=== PATIENT | male | born 1970 | race Caucasian/White ===

== ENCOUNTER 2020-11-16 10:13 | Emergency (ER) | payer MEDICAID, SELFPAY ==
[2020-11-16] VITALS (11 sets, daily range): BP systolic 143–182; BP diastolic 91–111; PULSE 78–96; RESP 12–22; TEMP 36.5; O2SAT 95–100
--- NOTE | ~2020-11-16 | XR_ITS ---
EXAMINATION: XR chest 2V DATE: 11/16/2020 10:45 INDICATION: Chest pain and cough TECHNIQUE: AP and lateral views of the chest are obtained. COMPARISON: 02/09/2019 FINDINGS: The lungs are free of acute opacities. There is no pleural effusion or pneumothorax. The ca rdiomediastinal silhouette is normal. There is moderate thoracic spondylosis. IMPRESSION: 1. No acute cardiopulmonary abnormality. Reviewed, dictated and finalized at location A. ITECTURAL WOOD MODEL MAKER
--- NOTE | 2020-11-16 10:24 | ECG_ITS ---
Measurements Intervals [place] Rate: 90 P: 46 IL: 183 QRS: -53 QRSD: 101 T: 11 QT: 349 QTc: 429 Interpretive Statements SINUS RHYTHM DELAYED PRECORDIAL R/S TRANSITION INFERIOR INFARCT, AGE INDETERMINATE BASELINE WANDER- I, II, AVR ABNORMAL ECG Electronically Signed On 11-16-2020 15:51:16 MOBILE LOUNGE DRIVER OR OPERATOR by Ryan Hill D.O.
[2020-11-16] MEDS: ASPIRIN 81 MG CHEWABLE TABLET 324 MG PO (10:34)
[2020-11-16 10:40] LABS: Basophils Absolute Auto 0.1 K/mm3 (0.0-0.1); Basophils Percent Auto 0.8 % (0.2-1.2); Eosinophils Absolute Auto 0.3 K/mm3 (0-0.3); Eosinophils Percent Auto 3.8 % (0-4.4); Hematocrit 50.4 % (42.0-52.0); Hemoglobin 17.3 g/dL (14.0-18.0); Immature Granulocyte Absolute 0.05 K/mm3 (0.00-0.031); Immature Granulocyte Percent A 0.6 % (0-0.5); Lymphocytes Absolute Auto 1.64 K/mm3 (0.9-3.2); Lymphocytes Percent Auto 19.4 % (18.3-44.2); Mean Corpuscular HGB Conc 34.3 g/dl (32-36); Mean Corpuscular Hemoglobin 28.9 pg (26-34); Mean Corpuscular Volume 84.3 fl (80-100); Mean Platelet Volume 8.7 fl (7.4-10.4); Monocytes Absolute Auto 0.5 K/mm3 (0.1-0.6); Neutrophils Absolute Auto 5.9 K/mm3 (1.3-6.7); Neutrophils Percent Auto 69.4 % (45.5-73.1); Platelet Count Result 275 k/mm3 (150-375); Red Blood Count 5.98 M/mm3 (4.6-6.20); Red Cell Distribution Width 12.3 % (11.5-14.5); White Blood Count 8.5 K/mm3 (4.5-10.0)
[2020-11-16] MEDS: hydrALAZINE HCL 20 MG/ML VIAL 10 MG IV PUSH ×2 (10:47→14:07)
[2020-11-16 10:49] LABS: Prothrombin Time 13.3 Seconds (11.1-14.7)
[2020-11-16 10:50] LABS: Partial Thromboplastin Time 31.9 SECONDS (22.3-36.8)
[2020-11-16 10:58] LABS: Anion Gap 5 mmol/L (8-16); Blood Urea Nitrogen 10 mg/dL (9-20); Calcium 9.4 mg/dL (8.4-10.2); Carbon Dioxide 30 mmol/L (22-30); Chloride 102 mmol/L (98-107); Estimated CRCL calculation 88 ml/min; Estimated Glomerular Filt Rate > 60; Glucose 109 mg/dL (75-110); Potassium 4.4 mmol/L (3.4-5.0); Sodium 137 mmol/L (137-145)
[2020-11-16 11:10] LABS: Troponin I < 0.012 ng/mL (0.000-0.034)
[2020-11-16 11:46] LABS: NT Pro B Type Natriuretic Pept 152 PG/ML (5-100)
--- NOTE | 2020-11-16 13:53 | ED.CHESTPAIN ---
HPI - Chest Pain General Chief Complaint: Chest Pain Stated Complaint: CP,SOB OUT OF CARDIAC MEDS Time Seen by Provider: 11/16/20 10:14 Source: patient and old records reviewed Mode of arrival: ambulatory Limitations: no limitations History of Present Illness HPI narrative: Patient is a 50-year-old male who presents with 3 weeks duration of not feeling well with fatigue on exertion and at rest patient also noting some mild chest discomfort in the mid chest is an aching pain that has been present for over a week and has remained persistent patient notes that he has not been compliant with his medications and has history of dilated cardiomyopathy followed by Dr. Oakes at [facility] also has not seen his primary care patient notes he was last seen roughly 18 months ago and has been off his medications for some time now. Patient notes he has not been taking his Entresto due to cost. Patient notes he has had a cough but denies other URI symptoms or sick contacts. On arrival patient in the room in no distress does not appear uncomfortable Related Data Allergies Allergy/AdvReac Type Severity Reaction Status Date / Time No Known Allergies Allergy Unknown Verified 11/16/20 10:28 Review of Systems Review of Systems: All systems reviewed & are unremarkable except as noted in HPI and below PMFSH Past Medical History Medical History (Updated 11/16/20 @ 14:49 by Syed Dumont PA-C) Dilated cardiomyopathy Hypertension Surgical History Surgical History (Updated 11/16/20 @ 14:48 by Syed Dumont PA-C) Hx of cardiac catheterization Family History Family History Mother Family history of heart disease in male family member before age 55 Patient's mother is Social History Social History Smoking status: Current every day smoker Alcohol intake: never Exam Narrative: Exam Narrative: GENERAL: Well-appearing, well-nourished, and in no acute distress. HEAD: Normocephalic, atraumatic. EYES: PERRLA and EOMI. ENT: Nares clear, no rhinorrhea or epistaxis. Mucous membranes moist. NECK: Supple. No adenopathy or masses. No carotid bruits or JVD CHEST: Clear to auscultation. No respiratory distress. No wheezes rales or rhonchi HEART: Regular rate and rhythm. No murmur heard. Normal peripheral pulses. ABDOMEN: Soft, nontender, nondistended EXTREMITIES: Normal range of motion. No edema. SKIN: Warm, dry, no rash. NEURO: No focal deficits. Alert and oriented x3. PSYCH: Normal mood and affect. Course Course Emergency Course: Patient evaluated in the emergency department was given medication for his blood pressure responded well noting that he is feeling better at this time patient is aware of discussion with cardiology and the recommendations patient agrees to go home and notes that he will contact his bindery worker and primary care first thing Wednesday also notes that he will feel his medications and start taking them as directed patient also agrees to return if symptoms worsen Consultations Consultation #1: Discussed case findings presentation with Dr. Yobany nice who agrees the patient can go home will be placed on blood pressure medications and advised to follow in clinic Date: 11/16/20 Time: 14:52 Vital Signs Vital signs: Vital Signs Temperature 97.7 F 11/16/20 10:14 Pulse Rate 96 11/16/20 10:14 Respiratory Rate 16 11/16/20 10:14 Blood Pressure 168/107 H 11/16/20 10:14 Pulse Oximetry 100 11/16/20 10:14 Temperature 97.7 F 11/16/20 10:14 Pulse Rate 78 11/16/20 13:38 Respiratory Rate 12 11/16/20 13:38 Blood Pressure 159/110 H 11/16/20 13:38 Pulse Oximetry 97 11/16/20 13:38 MDM - Chest Pain Lab Data Result diagrams: 11/16/20 10:29 11/16/20 10:29 Labs: Lab Results 11/16/20 11/16/20 11/16/20 Range/Units 10:2
[2020-11-16 13:54] LABS: Troponin I < 0.012 ng/mL (0.000-0.034)
[2020-11-17 00:20] LABS: SARS-CoV-2 RNA PCR Negative
== END 2020-11-16 15:04 | disposition home or self-care (01) ==
PROVIDERS: Emergency Medicine Emergency Medical Services; Emergency Provider Family Medicine; Family Provider Internal Medicine Cardiovascular Disease
DX: R07.89 Other chest pain (principal); I10 Essential (primary) hypertension; Z20.822 Contact with and (suspected) exposure to COVID-19; I42.0 Dilated cardiomyopathy; F17.200 Nicotine dependence, unspecified, uncomplicated; R94.31 Abnormal electrocardiogram [ECG] [EKG]
CPT/HCPCS: 36415; 71046; 80048; 83880; 84484; 85025; 85610; 85730; 93005; 96374; 96376; 99284; A9270; C9803; J0360; U0003; U0005

== ENCOUNTER 2022-10-02 06:51 | Inpatient (IN) | payer OTHER, SELFPAY ==
[2022-10-02] VITALS (61 sets, daily range): BP systolic 94–142; BP diastolic 72–98; PULSE 84–135; RESP 20–42; TEMP 36.8; O2SAT 86–100
--- NOTE | ~2022-10-02 | XR_ITS ---
EXAMINATION: XR chest 2V DATE: 10/02/2022 08:07 INDICATION: Shortness of breath and productive cough TECHNIQUE: PA and lateral views of the chest are obtained. COMPARISON: 11/16/2020 FINDINGS: There are patchy bilateral opacities throughout all lung zones. No pleural effusion or pneu mothorax. The cardiomediastinal silhouette is normal. There is mild thoracic spondylosis. IMPRESSION: 1. Patchy diffuse opacities throughout the lungs, consistent with atelectasis versus pneumonia versus pulmonary edema. Reviewed, dictated and finalized at location A. H SUPERVISOR IMPRESSION: 1. Patchy diffuse opacities throughout the lungs, consistent with atelectasis v ersus pneumonia versus pulmonary edema.
--- NOTE | 2022-10-02 07:12 | ECG_ITS ---
Measurements Intervals [place] Rate: 131 P: 60 TX: 146 QRS: -58 QRSD: 98 T: 105 QT: 281 QTc: 415 Interpretive Statements SINUS TACHYCARDIA MARKED LEFT AXIS DEVIATION [QRS AXIS < -30] PREVIOUS INFERIOR INFARCTION ST DEVIATION AND MODERATE T-WAVE ABNORMALITY, CONSIDER LATERAL ISCHEMIA [-0.1+ mV T WAVE IN I/aVL/V5/V6] COMPARED TO ECG 11/16/2020 10:28:21 SINUS TACHYCARDIA NOW PRESENT LATERAL T-WAVE INVERSION IS NOW SEEN Electronically Signed On 10-02-2022 7:48:48 TOOL AND GAUGE INSPECTOR by Ru Smith M.D.
[2022-10-02 07:40] LABS: Basophils Percent Auto 0.7 % (0.2-1.2); Eosinophils Percent Auto 0.2 % (0-4.4); Hematocrit 41.1 % (42.0-52.0); Hemoglobin 13.6 g/dL (14.0-18.0); Immature Granulocyte Absolute 0.03 K/mm3 (0.00-0.031); Immature Granulocyte Percent A 0.5 % (0-0.5); Lymphocytes Absolute Auto 0.45 K/mm3 (0.9-3.2); Lymphocytes Percent Auto 7.8 % (18.3-44.2); Mean Corpuscular HGB Conc 33.1 g/dl (32-36); Mean Corpuscular Hemoglobin 28.1 pg (26-34); Mean Corpuscular Volume 84.9 fl (80-100); Mean Platelet Volume 9.1 fl (7.4-10.4); Monocytes Absolute Auto 0.4 K/mm3 (0.1-0.6); Monocytes Percent Auto 7.1 % (2.6-8.5); Neutrophils Absolute Auto 4.9 K/mm3 (1.3-6.7); Neutrophils Percent Auto 83.7 % (45.5-73.1); Platelet Count Result 253 k/mm3 (150-375); Red Blood Count 4.84 M/mm3 (4.6-6.20); Red Cell Distribution Width 12.3 % (11.5-14.5); White Blood Count 5.8 K/mm3 (4.5-10.0)
[2022-10-02 07:42] LABS: Alveolar/Arterial O2 Gradient 58.4 mmHg; Base Excess ABG -1.3 mEq/l (+/-2.0); Carboxyhemoglobin 0.9 % THb (0-2.0); Fractional Inspired Oxygen 21 %; HCO3 ABG 20.7 mEq/l (22.0-26.0); Methemoglobin ABG 0.1 %THb (0-1.5); Oxygen Saturation ABG 92.5 % (95.0-100.0); Oxyhemoglobin 90.5 % THb (90.0-100.0); PCO2 ABG 27.9 mmHg (35.0-45.0); PO2 ABG 57.9 mmHg (80.0-100.0); PO2 FiO2 Ratio Arterial Blood 2.76 %; Reduced Hemoglobin 8.5 %THb (0-5.0); Total Hemoglobin 14.2 g/dL (12.0-18.0); pH ABG 7.489 (7.350-7.450)
[2022-10-02 07:43] LABS: Site Drawn LEFT BRACHIAL
[2022-10-02 07:44] LABS: Device ROOM AIR
[2022-10-02 07:50] LABS: Lactic Acid Reflex 1.4 mmol/L (0.7-2.0)
[2022-10-02 07:51] LABS: INR 1.2; Prothrombin Time 14.7 Seconds (11.1-14.7)
[2022-10-02 07:52] LABS: Alanine Aminotransferase 213 U/L (6-50); Alkaline Phosphatase 110 U/L (38-126); Anion Gap 5 mmol/L (8-16); Aspartate Amino Transferase 227 U/L (17-59); Bilirubin,Total 0.7 mg/dL (0.2-1.3); Blood Urea Nitrogen 16 mg/dL (9-20); CRP 4.2 mg/dL (<1.0); Calcium 8.1 mg/dL (8.4-10.2); Carbon Dioxide 27 mmol/L (22-30); Chloride 97 mmol/L (98-107); Estimated CRCL calculation 55 ml/min; Estimated Glomerular Filt Rate 53; Glucose 95 mg/dL (65-110); Partial Thromboplastin Time 30.7 SECONDS (22.3-36.8); Potassium 4.5 mmol/L (3.4-5.0); Sodium 129 mmol/L (137-145)
--- NOTE | 2022-10-02 07:58 | ED.SOB ---
HPI - SOB/Dyspnea General Chief Complaint: Shortness of Breath/Dyspnea Stated Complaint: shortness of breath Time Seen by Provider: 10/02/22 07:05 Source: patient and RN notes reviewed Mode of arrival: ambulatory Limitations: no limitations History of Present Illness HPI Narrative: This is a 52 year old male with history of smoking, hypertension and dilated cardiomyopathy who presents for evaluation of shortness of breath and cough. Patient reports a productive with yellow phlegm for 1 week. He also reports cough and wheezing when laying down at night. He is reports shortness of breath with exertion and 7 pound weight gain in 1 week. He denies lower extremity edema but he states he has gained weight in his abdomen in the past. Patient reports abdominal pain in triage but he denies abdominal pain, nausea, vomiting or diarrhea to me . He denies fever or chills. He reports being diagnosed with dilated cardiomyopathy in 2016, but he has not followed with a provider since then. He does not take any medication. He has not seen certified tower climber, Dr. Oakes since 2016. He reports negative cardiac catheterization in 2016 . Related Data Allergies Allergy/AdvReac Type Severity Reaction Status Date / Time No Known Allergies Allergy Unknown Verified 11/16/20 10:28 Review of Systems Review of Systems: All systems reviewed & are unremarkable except as noted in HPI and below Constitutional: Constitutional: Denies chills, Denies fatigue, Reports fever(s) and Reports weakness Cardiovascular: Cardiovascular: Reports chest pain (chest tightness) and Denies radiating jaw, neck or arm pain Respiratory: Respiratory: Denies chest congestion, Reports cough, Reports dyspnea and Reports wheezing Gastrointestinal: Gastrointestinal: Denies abdominal pain, Reports bloating, Denies nausea and Denies vomiting [facility] Past Medical History Medical History (Updated 10/02/22 @ 18:41 by Sparkle Vasquez MD) Dilated cardiomyopathy Hypertension Surgical History Surgical History Hx of cardiac catheterization Family History Family History Mother Family history of heart disease in male family member before age 55 Patient's mother is Social History Social History (Updated 10/02/22 @ 16:07 by Funmilayo Mosqueda NP) Social History: The patient smokes 1/2 ppd. He is and has 2 sons. 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 Patient denies any all alcohol marijuana or illicit drugs. His sons are his durable power bankruptcy attorney for healthcare. Code status full code Smoking status: Current every day smoker Alcohol intake: never Exam Const: General: alert Nutritional Appearance: well nourished Orientation/consciousness: patient oriented x3 HENMT: Head: normal to inspection Face/Nose/Sinus: Normal external nose present Face and sinus: normal facial exam Eyes: EOM: EOMs intact bilaterally Chest: Chest palpation & inspection: normal inspection of the chest Resp: Effort & Inspection: normal respiratory effort Auscultation: clear to auscultation bilaterally Cardio: Rate: tachycardic Rhythm: regular rhythm Heart sounds: no murmurs GI: GI Palp: Yes Soft to palpation, No Tenderness to palpation present (GI), No Guarding due to palpation present (GI) and No Rigid due to palpation Auscultation: normal bowel sounds Back/Spine/Pelvis: Back: no CVA tenderness Skin: General skin exam: normal color Rashes: no rashes Wounds: no wounds Neuro: General: patient oriented x3, moves all extremities and CN's II-XI intact bilaterally Extrem: General: normal to inspection Psych: Mental Status: mental status grossly normal Affect: normal affect Attitude: cooperative Course Reevaluation(s) Reevaluation #1: I Discussed with patient that he was found to have COVID and CHF. He will be admitted for diuresis and covid treatme
[2022-10-02 08:15] LABS: NT Pro B Type Natriuretic Pept 11000 pg/mL (5-100); Troponin I 0.095 ng/mL (0.000-0.034)
[2022-10-02] MEDS: FUROSEMIDE INJ 40 MG/4 ML VIAL IV PUSH (08:45)
[2022-10-02] MEDS: ASPIRIN 81 MG CHEWABLE TABLET 324 MG PO (08:46)
[2022-10-02 09:01] LABS: Influenza A QL RT-PCR Negative (Negative); Influenza B QL RT-PCR Negative (Negative); SARS-CoV-2 RNA PCR Positive
[2022-10-02 09:01] LABS: Lipase 40 U/L (23-300)
[2022-10-02 09:05] LABS: Appearance Urine Clear (Clear); Bilirubin Urine 1+ (Negative); Blood Urine Negative (Negative); Color Urine Yellow (Yellow); Glucose Urine UA Negative (Negative); Ketones Urine Negative (Negative); Leukocyte Esterase Ur Negative LEU/UL (Negative); Nitrate Urine Negative (Negative); Protein Urine 1+ mg/dL (Negative); Specific Grav Ur 1.025 (1.001-1.035); pH Urine 5.5 (5.0-9.0)
[2022-10-02 09:10] LABS: Mucus Urine Rare /lpf; RBC Urine 0-2 /hpf (0-2); WBC Urine 0-3 /hpf
[2022-10-02 09:11] LABS: Add Urine Microscopic? YES
[2022-10-02 11:16] LABS: Alanine Aminotransferase 209 U/L (6-50)
[2022-10-02 11:30] LABS: Troponin I 0.122 ng/mL (0.000-0.034)
[2022-10-02] MEDS: REMDESIVIR 200 MG/NS 250 ML 200 MG/250 ML BAG 250 MG IVPB (11:35)
--- NOTE | 2022-10-02 13:08 | PC.NURSE ---
standard heart health food tray ordered
[2022-10-02 13:45] LABS: Troponin I 0.116 ng/mL (0.000-0.034)
--- NOTE | 2022-10-02 14:03 | PM.IMHP ---
H&P: HPI History of Present Illness Date/Time: 10/02/22 14:03 Chief Complaint: Shortness of breath Narrative: This is a 52-year-old male patient who has a history of smoking, hypertension and dilated cardiomyopathy. At 1 point the patient had a life vest on. But no longer wears a LifeVest. The patient has had a productive cough of yellow phlegm for last week. The patient stated that he has gained weight of 7 lb the last week. The patient has not taken any medication. Has not seen a insurance follow up representative 2016 he reported a negative cardiac catheterization in 2016. H&H 13.6 and 41.1. ABGs pH 7.489, CO2 27.9, PO2 was 57.9. The patient was provided oxygen at 2 L per nasal cannula emergency room. Sodium is 129. Creatinine 1.4. AST is 227 [place] [address]. C reactive protein 4.2. Troponin 0.095, 0.122 and 0.116. Chest x-ray was read as patchy diffuse opacities to the lungs, consistent with atelectasis versus pneumonia versus pulmonary edema. The patient was given IV fluids, aspirin, Decadron and remdesivir. EKG was read as sinus tachycardia heart rate 130s. Initially the patient was admitted to observation and then changed to inpatient status on the date of service 10/02/2022 Review of Systems Review of Systems: See HPI All systems reviewed & are unremarkable except as noted in HPI and below Constitutional: Constitutional: Reports as per HPI and Reports no additional constitutional complaints Eyes: Eyes: Reports as per HPI and Reports no additional eye complaints ENT: Reports system reviewed and no additional complaints, except as documented and Reports Normal hearing present Cardiovascular: Cardiovascular: Reports no additional cardiovascular complaints Respiratory: Respiratory: Reports no additional respiratory complaints and Reports no additional respiratory complaints Gastrointestinal: Gastrointestinal: Reports as per HPI and Reports no additional gastrointestinal complaints Musculoskeletal: Musculoskeletal: Reports no additional musculoskeletal complaints Integumentary/Breasts: Skin/Breast: Reports system reviewed and no additional complaints, except as docu and Reports as per HPI Neurologic: Reports system reviewed and no additional complaints, except as documented, Reports as per HPI and Reports Normal hearing present Psychiatric: Psychiatric: Reports no additional psychiatric complaints and Reports as per HPI Endocrine: Endocrine: Reports no additional endocrine complaints Hematologic/Lymphatic: Hematologic/Lymphatic: Reports no additional hematologic/lymphatic complaints Allergic/Immunologic: Allergic/Immunologic: Reports no additional allergic/immunologic complaints [facility] Past Medical History Medical History (Updated 10/02/22 @ 16:17 by Funmilayo Mosqueda NP) Dilated cardiomyopathy Hypertension Surgical History Surgical History Hx of cardiac catheterization Family History Family History Mother Family history of heart disease in male family member before age 55 Patient's mother is Social History Social History (Updated 10/02/22 @ 16:07 by Funmilayo Mosqueda NP) Social History: The patient smokes 1/2 ppd. He is and has 2 sons. 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 Patient denies any all alcohol marijuana or illicit drugs. His sons are his durable power motor racer for healthcare. Code status full code Smoking status: Current every day smoker Alcohol intake: never Meds Home Medications and Allergies Home Medications Medication Instructions Recorded Confirmed Type carvedilol 3.125 mg tablet (Coreg) 3.125 mg PO BID 30 days #60 tabs 11/16/20 Rx lisinopril 20 mg tablet 20 mg PO DAILY 30 days #30 tabs 11/16/20 Rx Allergies Allergy/AdvReac Type Severity Reaction Status Date / Time No Known Allergies Allergy Unknown Verified 11/16/20 1
--- NOTE | 2022-10-02 16:23 | PC.NURSE ---
heart healthy diet ordered
[2022-10-03] VITALS (8 sets, daily range): BP systolic 106–111; BP diastolic 66–71; PULSE 74–90; RESP 18–24; TEMP 35.6–37; O2SAT 93–97; BMI 26.2; BMI 26.0
--- NOTE | 2022-10-03 | ECHO_ITS ---
Patient Info Name: Jose Juan Rodriguez Age: 52 years : 1970 Gender: Male Ht: 69 in Wt: 177 lbs BSA: 1.99 m2 HR: 76 bpm BP: 109 / 71 mmHg Heart Rhythm: Sinus Rhythm Technical Quality: Good Exam Date: 10/03/2022 7:53 AM Exam Location: [facility] Patient Status: Inpatient Admit Date: 10/02/2022 Staff Ordering Physician: Funmilayo Mosqueda NP Court Of Appeals Judge: Olivia Card RDCS Attending Provider: Jake Shipman MD Referring Physician: Jaylin MARINO; Exam Type: CA echo doppler color flow Study Info Indications R06.02 - Shortness of breath Complete two-dimensional, color flow and Doppler transthoracic echocardiogram is performed. Summary 1. Complete two-dimensional, color flow and Doppler transthoracic echocardiogram is performed. 2. Severe left ventricular enlargement with severely reduced systolic function and diastolic noncompliance as well. 3. Significantly dilated left atrium. 4. Small amount of MR. Left Ventricle Left ventricular chamber dimension is severely enlarged. Left ventricular systolic function is severely reduced, estimated at 20-25%. The left ventricular diastolic function is grade II diastolic dysfunction. Right Ventricle Right ventricular chamber dimension is normal. Left Atria Left atrial chamber dimension is moderately enlarged. Right Atria Right atrial chamber dimension is mildly enlarged. Aortic Valve The aortic valve is normal. Pulmonic Valve The pulmonic valve is normal. Mitral Valve The mitral valve has normal leaflets. There is trace mitral valve regurgitation. Tricuspid Valve The tricuspid valve leaflets are normal. Pericardium/Pleural The pericardium appears normal. Aorta The aortic root size at the sinus of Valsalva is normal. Left Ventricular Outflow Tract Name Value Normal LVOT 2D LVOT Diameter 2.0 cm LVOT Doppler LVOT Peak Gradient 2 mmHg LVOT Mean Gradient 1 mmHg LVOT VTI 13 cm LVOT VTI/AV VTI Ratio 0.8 LVOT Stroke Volume 43 ml LVOT CO 2.4 l/min LVOT CI 1.2 l/min/m2 Pulmonic Valve Name Value Normal PV Doppler PV Peak Gradient 2 mmHg Mitral Valve Name Value Normal MV Doppler MV Decel Haskell 647 cm/s2 MV PHT 41 ms MV Area (PHT) 5.3 cm2 4.0-5.0 MV Diastolic Function
--- NOTE | 2022-10-03 00:56 | ADMGEN ---
This patient, Jose Juan Rodriguez, was admitted to IMU Room 231-01 at 0057. Patient/family oriented to hospital policies and general routines including ID bracelet, bed and alarms, visiting hours, pain management, procedures, bathroom and other care routines, personal items, smoking policy, room service/diet, and visiting hours. Information on how to activate the Rapid Response Team has been discussed. Patient/Family are encouraged to report perceived risks to care and to ask questions if they do not understand what they are told or what they should do.
[2022-10-03 05:23] LABS: Basophils Percent Auto 0.1 % (0.2-1.2); Hemoglobin 15.1 g/dL (14.0-18.0); Immature Granulocyte Absolute 0.03 K/mm3 (0.00-0.031); Immature Granulocyte Percent A 0.4 % (0-0.5); Lymphocytes Absolute Auto 0.78 K/mm3 (0.9-3.2); Lymphocytes Percent Auto 11.4 % (18.3-44.2); Mean Corpuscular HGB Conc 33.6 g/dl (32-36); Mean Corpuscular Hemoglobin 29.1 pg (26-34); Mean Corpuscular Volume 86.7 fl (80-100); Mean Platelet Volume 8.8 fl (7.4-10.4); Monocytes Absolute Auto 0.9 K/mm3 (0.1-0.6); Monocytes Percent Auto 13.3 % (2.6-8.5); Neutrophils Absolute Auto 5.1 K/mm3 (1.3-6.7); Neutrophils Percent Auto 74.8 % (45.5-73.1); Platelet Count Result 251 k/mm3 (150-375); Red Blood Count 5.19 M/mm3 (4.6-6.20); Red Cell Distribution Width 12.8 % (11.5-14.5); White Blood Count 6.8 K/mm3 (4.5-10.0)
[2022-10-03 05:34] LABS: INR 1.2; Prothrombin Time 14.6 Seconds (11.1-14.7)
[2022-10-03 05:42] LABS: Alanine Aminotransferase 180 U/L (6-50); Albumin Level 3.7 g/dL (3.5-5.1); Alkaline Phosphatase 101 U/L (38-126); Anion Gap 6 mmol/L (8-16); Aspartate Amino Transferase 128 U/L (17-59); Bilirubin,Total 0.7 mg/dL (0.2-1.3); Blood Urea Nitrogen 20 mg/dL (9-20); Calcium 8.1 mg/dL (8.4-10.2); Carbon Dioxide 28 mmol/L (22-30); Chloride 98 mmol/L (98-107); Estimated CRCL calculation 54 ml/min; Estimated Glomerular Filt Rate > 60; Glucose 103 mg/dL (65-110); Lactate Dehydrogenase 260 U/L (120-246); Magnesium 2.1 mg/dL (1.6-2.3); Potassium 4.2 mmol/L (3.4-5.0); Sodium 132 mmol/L (137-145)
[2022-10-03 05:53] LABS: Troponin I 0.069 ng/mL (0.000-0.034)
[2022-10-03 06:14] LABS: Thyroid Stimulating Hormone Reflex 0.402 uIU/mL (0.465-4.68)
[2022-10-03] MEDS: REMDESIVIR 100 MG/NS 250 ML 100 MG/250 ML BAG 250 MG IVPB (09:18)
[2022-10-03] MEDS: ENOXAPARIN 40 MG/0.4 ML SYRINGE SUB-Q (09:19)
[2022-10-03] MEDS: DEXAMETHASONE 2 MG TABLET 6 MG PO (09:19)
[2022-10-03 12:05] LABS: Hepatitis B Surface Antigen Negative (Negative)
[2022-10-03 12:11] LABS: HAV RESULT Negative (Negative); Hepatitis B Core IgM Result Negative (Negative)
[2022-10-03 12:23] LABS: Hepatitis C Virus Antibody Negative (Negative)
--- NOTE | 2022-10-03 12:47 | PM.CNCAR ---
Assessment and Plan Assessment and plan (1) Congestive heart failure: Code(s): I50.9 - Heart failure, unspecified Status: Acute (2) Dilated cardiomyopathy: Code(s): I42.0 - Dilated cardiomyopathy Status: Acute Plan 52-year-old man with established diagnosis of nonischemic cardiomyopathy. He came into the hospital with some increasing abdominal girth shortness of breath for about a week or so. Fortunately he does not have a lot of volume overload and he does feel better after receiving a dose of furosemide yesterday in the emergency room. He also did test positive for coronavirus. I was encouraged looking at his chest x-ray that is cardiac silhouette does not look very large and hopefully he has not re dilated his left ventricle with noncompliance to medication. An echocardiogram has been ordered but has yet to be performed. I am going to resume guideline directed medical therapy with Entresto, carvedilol and spironolactone at this time. He was able to get Entresto in the past when he was decompensated through his medical card hopefully this will be the case again. Further recommendations will be pending his response to treatment and review of his echocardiogram. Encouraged patient to try to quit smoking and be compliant with medication and follow-up with my partner, Dr. Violette Smith MD [facility] History of Present Illness History of Present Illness Consult date/time: 10/03/22 12:47 Reason For Visit: CHF/COVID+/Hypoxia Narrative: This is a 52-year-old man with a known history of a nonischemic cardiomyopathy. I am seeing him at the request of the hospitalist because of dyspnea and symptoms of increasing abdominal girth recently. The patient states that he came to the emergency room yesterday because of symptoms of some shortness of breath increasing abdominal girth the and some coughing that began about 5-7 days before coming in. The patient is not reporting any other symptomatology. In the emergency room he was evaluated and found to have coronavirus and he was admitted to the hospital. He feels relatively comfortable the that today and does not offer any complaints upon seeing him in the IMU. He has an established diagnosis of significant nonischemic cardiomyopathy with the diagnosis being made when he presented here in 2016 with decompensated congestive heart failure. At that time his evaluation showed a very low ejection fraction of 10-15% and angiographically non diseased coronary arteries. He was treated with standard guideline directed medical therapy and did extremely well. In the ensuing year his ejection fraction normalized on echo to 55%. Unfortunately his follow-up in our office has been inconsistent and spotty. At times he would come in for appointments and at times he would not. It looks like his Entresto was initially changed to lisinopril for financial reasons. He at times would quit smoking and then would go back to it. He is currently back to smoking about half a pack per day. He says that he has not been on any of his medications for quite a long time. He was last seen by Pranay chaudhry in the office a year and a half ago in March of 2021 at which time follow-up in several months was recommended which he failed. Review of Systems Constitutional: Constitutional: Reports no additional constitutional complaints Eyes: Eyes: Reports no additional eye complaints ENT: Reports system reviewed and no additional complaints, except as documented Cardiovascular: Cardiovascular: Reports no additional cardiovascular complaints Respiratory: Respiratory: Reports dyspnea on exertion Gastrointestinal: Gastrointestinal: Reports no additional gastrointestinal complaints Musculoskeletal: Musculoskeletal: Reports no additional musculoskeletal complaints Integumentary/Breasts: Skin/Breast: Reports system reviewed and no additional complaints, except as docu Neurologic: Reports system reviewed a
[2022-10-03 13:42] LABS: Free T4 Free Thyroxine Reflex 1.28 ng/dL (0.78-2.19)
--- NOTE | 2022-10-03 14:24 | PC.NURSE ---
Patient asked to leave AMA. notified and discussed why he should stay. Patient is A&Ox4 and still wishes to leave. AMA paperwork being filled out and IV will be D/C.
--- NOTE | 2022-10-03 14:34 | PC.NURSE ---
Patient concerned about heart meds but not willing to stay in the hospital, discussed with Dr. Smith. Will transmit cardiac meds ordered by Dr. Smith and his office will reach out to patient in the coming work week.
--- NOTE | 2022-10-03 14:52 | PM.IMPN ---
Progress Note: A&P Assessment and Plan (1) COVID: Code(s): U07.1 - COVID-19 Status: Acute Assessment and Plan: -the patient was started on Decadron and remdesivir -monitor liver enzymes. His liver enzymes are elevated at this time. -droplet precautions -maintain oxygen levels greater than 92%. Patient is currently on oxygen at 2 L per nasal cannula. -p.r.n. albuterol inhaler 10/03/2022 interval history: 52-year-old male patient did with complaint of shortness of is found to COVID-19 patient is being treated remdesivir and dexamethasone patient states is feeling much better compared to when he arrived not a short of breath, patient also has a history cardiomyopathy at 1 time he was on LifeVest however has not been using, patient be seen by Cardiology and further recommendation to follow, will continue present management. (2) Hypertension: Code(s): I10 - Essential (primary) hypertension Status: Acute Assessment and Plan: -the patient has not taken his Coreg of lisinopril in many years. -p.r.n. hydralazine with parameters (3) Dilated cardiomyopathy: Code(s): I42.0 - Dilated cardiomyopathy Status: Acute Assessment and Plan: -I did order an echo. No previous echo to compare. -the patient has not seen his engineer systems and quite some time. -patient had been on Coreg and lisinopril at 1 point. -the patient stated that he had a life vest at 1 time but no longer needs to use it. Subjective Date/time seen: 10/03/22 14:52 Chief Complaint: Shortness of breath HPI-Narrative: This is a 52-year-old male patient who has a history of smoking, hypertension and dilated cardiomyopathy.? At 1 point the patient had a life vest on.? But no longer wears a LifeVest.? The patient has had a productive cough of yellow phlegm for last week.? The patient stated that he has gained weight of 7 lb the last week.? The patient has not taken any medication.? Has not seen a engineer systems 2016 he reported a negative cardiac catheterization in 2016.? H&H 13.6 and 41.1.? ABGs pH 7.489, CO2 27.9, PO2 was 57.9.? The patient was provided oxygen at 2 L per nasal cannula emergency room.? Sodium is 129.? Creatinine 1.4.? AST is 227 [place] 213.? [place] [address].? C reactive protein 4.2.? Troponin 0.095, 0.122 and 0.116.? Chest x-ray was read as patchy diffuse opacities to the lungs, consistent with atelectasis versus pneumonia versus pulmonary edema.? The patient was given IV fluids, aspirin, Decadron and remdesivir.? EKG was read as sinus tachycardia heart rate 130s.? Initially the patient was admitted to observation and then changed to inpatient status on the date of service 10/02/2022 10/03/2022 interval history: 52-year-old male patient did with complaint of shortness of is found to COVID-19 patient is being treated remdesivir and dexamethasone patient states is feeling much better compared to when he arrived not a short of breath, patient also has a history cardiomyopathy at 1 time he was on LifeVest however has not been using, patient be seen by Cardiology and further recommendation to follow, will continue present management. Review of Systems Review of Systems: All systems reviewed & are unremarkable except as noted in HPI and below Exam Narrative: Patient is comfortable, NAD HEENT: eyes are clear and none icteric LUNGS: normal respiratory effort ABD: not distended Lower extremities: no edema SKIN: nonjaundiced Neuro: grossly intact. Objective Data Vital Signs Vital Signs: Vital Signs - 24 hr 10/02/22 14:55 10/02/22 16:45 10/02/22 16:30 Temperature Pulse Rate 102 H 90 88 Respiratory Rate 23 H 26 H 24 H Blood Pressure 105/80 111/83 106/82 Pulse Oximetry 97 98 97 Oxygen Delivery Oxygen Flow Rate 10/02/22 16:00 10/02/22 15:45 10/02/22 15:30 Temperature Pulse Rate 94 99 90 Respiratory Rate 29 H 23 H 23 H Blood Pressure 103/82 118/87 103/77 Pulse Oximetry 96 97 95 Oxygen De
--- NOTE | 2022-10-03 14:57 | PM.DS ---
DS: Admitting Diagnosis Discharge Date 10/03/22 Admitting Diagnosis shortness of breath DS: Summary Hospital Course Hospital Course: left against medical advice Time Spent with Patient Time attestation: Total time spent providing and/or coordinating discharge services: DS: Data Data Completed and Pending Labs on day of discharge: Labs from last 24 hours 10/03/22 10/03/22 10/03/22 05:15 05:15 05:15 WBC RBC Hgb Hct MCV MCH MCHC RDW Plt Count MPV Immature Gran % (Auto) Neut % (Auto) Lymph % (Auto) [place] % (Auto) Eos % (Auto) Baso % (Auto) Lymph # (Auto) [place] # (Auto) Eos # (Auto) Baso # (Auto) Abs Immat Gran (auto) Absolute Neuts (auto) Absolute Nucleated RBC Nucleated RBC % PT INR Sodium Potassium Chloride Carbon Dioxide Anion Gap BUN Creatinine Estim Creat Clear Calc Estimated GFR Glucose Lactic Acid Calcium Magnesium Total Bilirubin AST ALT Alkaline Phosphatase Lactate Dehydrogenase Troponin I Total Protein Albumin TSH (Reflex) 0.402 L Free T4 1.28 Total T3 Pending Hepatitis A IgM Ab Hep Bs Antigen Hep B Core IgM Ab Hepatitis C Ab Screen 10/03/22 10/03/22 10/03/22 05:15 05:15 05:15 WBC RBC Hgb Hct MCV MCH MCHC RDW Plt Count MPV Immature Gran % (Auto) Neut % (Auto) Lymph % (Auto) [place] % (Auto) Eos % (Auto) Baso % (Auto) Lymph # (Auto) [place] # (Auto) Eos # (Auto) Baso # (Auto) Abs Immat Gran (auto) Absolute Neuts (auto) Absolute Nucleated RBC Nucleated RBC % PT 14.6 INR 1.2 Sodium 132 L Potassium 4.2 Chloride 98 Carbon Dioxide 28 Anion Gap 6 L BUN 20 Creatinine 1.20 Estim Creat Clear Calc 54 Estimated GFR > 60 Glucose 103 Lactic Acid 1.0 Calcium 8.1 L Magnesium 2.1 Total Bilirubin 0.7 AST 128 H ALT 180 H Alkaline Phosphatase 101 Lactate Dehydrogenase 260 H Troponin I 0.069 H* Total Protein 7.0 Albumin 3.7 TSH (Reflex) Free T4 Total T3 Hepatitis A IgM Ab Hep Bs Antigen Hep B Core IgM Ab Hepatitis C Ab Screen 10/03/22 10/03/22 05:15 05:11 WBC 6.8 RBC 5.19 Hgb 15.1 Hct 45.0 MCV 86.7 MCH 29.1 MCHC 33.6 RDW 12.8 Plt Count 251 MPV 8.8 Immature Gran % (Auto) 0.4 Neut % (Auto) 74.8 H Lymph % (Auto) 11.4 L [place] % (Auto) 13.3 H Eos % (Auto) 0.0 Baso % (Auto) 0.1 L Lymph # (Auto) 0.78 L [place] # (Auto) 0.9 H Eos # (Auto) 0.0 Baso # (Auto) 0.0 Abs Immat Gran (auto) 0.03 Absolute Neuts (auto) 5.1 Absolute Nucleated RBC 0.0 Nucleated RBC % 0.0 PT INR Sodium Potassium Chloride Carbon Dioxide Anion Gap BUN Creatinine Estim Creat Clear Calc Estimated GFR Glucose Lactic Acid Calcium Magnesium Total Bilirubin AST ALT Alkaline Phosphatase Lactate Dehydrogenase Troponin I Total Protein Albumin TSH (Reflex) Free T4 Total T3 Hepatitis A IgM Ab Negative Hep Bs Antigen Negative Hep B Core IgM Ab Negative Hepatitis C Ab Screen Negative Preliminary micro results at discharge 10/02/22 07:32 Blood Culture - Preliminary Blood 10/02/22 07:32 Blood Culture - Preliminary Blood Discharge Plan Discharge Consulting providers: Ru Smith Patient Disposition: Left Against Medical Advice Discharge Instructions: left AMA Patient Instructions: Spironolactone (By mouth), Carvedilol (By mouth), Sacubitril/Valsartan (By mouth) Discharge Medications: New carvedilol [Coreg] 6.25 mg Tablet 6.25 mg PO Q12HR Qty: 60 0RF spironolactone 25 mg Tablet 25 mg PO QAM Qty: 30 0RF Entresto 24-26 mg Tablet 1 tab PO Q12HR Qty: 60 0RF Date of admission: 10/02/22 14:02 Primary
[2022-10-03 15:14] LABS: Total Triiodothyronine (T3) 0.78 NG/ML (0.97-1.69)
== END 2022-10-03 14:46 | disposition left against medical advice (07) | DRG 137 ==
LOC: ANHED 07:22 → ANHIMU 12:31
PROVIDERS: Family Medicine; Nurse Practitioner; Admitting Provider Internal Medicine; Emergency Provider General Practice; Visit Provider Internal Medicine
DX: U07.1 COVID-19 (principal); I50.23 Acute on chronic systolic (congestive) heart failure; I42.0 Dilated cardiomyopathy; I11.0 Hypertensive heart disease with heart failure; F17.210 Nicotine dependence, cigarettes, uncomplicated; Z23 Encounter for immunization; Z91.14 Patient's other noncompliance with medication regimen
CPT/HCPCS: 36415; 36600; 71046; 80053; 80074; 81001; 82375; 82805; 83050; 83605; 83615; 83690; 83735; 83880; 84439; 84443; 84460; 84480; 84484; 85025; 85610; 85730; 86140; 87040; 87636; 93005; 93306; 96365; 96375; 99285; A9270; G0378; G0379; J0248; J1100; J1650; J1940; J8540

== ENCOUNTER 2022-10-05 02:18 | Inpatient (IN) | payer OTHER, SELFPAY ==
[2022-10-05] VITALS (30 sets, daily range): BP systolic 93–132; BP diastolic 60–95; PULSE 59–82; RESP 12–22; TEMP 35.9–36.2; O2SAT 92–98; BMI 26.4
--- NOTE | ~2022-10-05 | CT_ITS ---
EXAMINATION: CTA chest PE abdomen pel DATE: 10/05/2022 04:01 INDICATION: Shortness of breath. Chest pain. Nausea and vomiting. TECHNIQUE: Computed tomography angiography (CTA) of the chest was performed with 100 mL Omnipaque-350 intravenous contrast timed to evaluate the pulmonary arteries. Coronal maximum intensity projection 3D-reconstructions were created by the technologist. Computed tomography (CT) of the abdomen and pelv is was performed with intravenous contrast. Automated exposure control and iterative reconstruction t echnique were employed. The dose-length product was 795.53 mGy-cm. COMPARISON: Chest CT 10/21/2016 FINDINGS: CTA chest: There is mild dependent atelectasis bilaterally. There are tree-in-bud opacities in the de pendent lower lobes. No pleural effusion. Cardiomegaly is noted. No pericardial effusion. There is no pulmonary embolus. There is moderate thoracic spondylosis. CT abdomen and pelvis: The liver is normal. There are gallstones in the gallbladder which is normal i n size. The spleen, pancreas, adrenal glands, and kidneys are normal. There are no dilated loops of b owel. The appendix is normal. There are no pathologically enlarged lymph nodes. There is no free intr aperitoneal fluid. There is mild lumbar spondylosis. IMPRESSION: 1. Dependent tree-in-bud opacities in the lower lobes, consistent with inflammation versus infection. 2. Cholelithiasis. No evidence of acute cholecystitis. Reviewed, dictated and finalized at location A. R STEWARD/STEWARDESS IMPRESSION: 1. Dependent tree-in-bud opacities in the lower lobes, consistent with inflamma tion versus infection. 2. Cholelithiasis. No evidence of acute cholecystitis.
--- NOTE | ~2022-10-05 | XR_ITS ---
EXAMINATION: XR chest 1V portable DATE: 10/05/2022 03:20 INDICATION: Chest pain. TECHNIQUE: A single frontal view of the chest was obtained. COMPARISON: Chest 2 views 10/02/2022, chest CT 10/05/2022 FINDINGS: There is no pneumonia, pleural effusion, or pneumothorax. Cardiomegaly is noted. IMPRESSION: 1. Cardiomegaly. Reviewed, dictated and finalized at location A. WHEELER IMPRESSION: 1. Cardiomegaly.
--- NOTE | ~2022-10-05 | US_ITS ---
EXAMINATION: US right upper quadrant DATE: 10/07/2022 20:38 INDICATION: ABDOMINAL PAIN TECHNIQUE: Multiple grayscale and Doppler ultrasound images of the right upper quadrant were obtained . COMPARISON: None available. FINDINGS: The visualized portions of the pancreas are normal. The liver is normal with normal echogen icity and echotexture. No surface nodularity. Normal hepatopetal flow in the main portal vein. Multip le mobile gallstones. Echogenic foci in the mildly thickened gallbladder wall with twinkle and comet tail artifacts, most notably in the gallbladder fundus. The common bile duct measures 7 mm. There was no sonographic Palma sign. IMPRESSION: Cholelithiasis. Mild gallbladder wall thickening. Adenomyomatosis of the gallbladder. Reviewed, dictated and finalized at location K. R FORENSICS ANALYST IMPRESSION: Cholelithiasis. Mild gallbladder wall thickening. Adenomyomatosis of the gallbl adder.
--- NOTE | 2022-10-05 02:24 | ECG_ITS ---
Measurements Intervals [place] Rate: 59 P: 62 AL: 179 QRS: -62 QRSD: 107 T: 152 QT: 471 QTc: 468 Interpretive Statements SINUS BRADYCARDIA PRIOR INFERIOR [place] T WAVE ABNORMALITY CONSIDER LATERAL ISCHEMIA COMPARED TO ECG 10/02/2022 07:21:31 HR IS REDUCED NO OTHER CHANGE Electronically Signed On 10-05-2022 6:26:43 BUILDING OPERATOR by Ru Smith M.D.
--- NOTE | 2022-10-05 02:34 | ED.GENADULT ---
HPI - General Adult General Chief complaint: Chest Pain Stated complaint: COVID+, severe CP , signed out yesterday Time Seen by Provider: 10/05/22 02:26 Source: RN notes reviewed History of Present Illness HPI narrative: Patient presents emergency department from home for chest pain. Patient states that chest pain began this evening around 7 PM. The pain is located in the midsternal lower chest and upper abdomen described as sharp and stabbing in nature. Nothing makes the pain better or worse. Patient states that he was recently diagnosed with COVID-19. Patient had been admitted to the hospital but had left AGAINST MEDICAL ADVICE he has a history of ischemic cardiomyopathy he denies any fevers or chills denies any shortness of breath. Patient states he did have 1 episode of nausea and vomiting Related Data Allergies Allergy/AdvReac Type Severity Reaction Status Date / Time No Known Allergies Allergy Unknown Verified 10/05/22 02:33 Review of Systems Review of Systems: Gen.: Denies fevers or chills reports COVID-19 ENT: Denies congestion Respiratory: Denies shortness of breath or cough CV: See HPI GI: Denies abdominal pain or diarrhea reports nausea vomiting Musculoskeletal: Denies back pain or muscle pain Neuro: Denies numbness, tingling, weakness or focal weakness Skin: Denies rash Except as documented, all other systems reviewed and negative [facility] Past Medical History Medical History Dilated cardiomyopathy Hypertension Surgical History Surgical History Hx of cardiac catheterization Family History Family History Mother Family history of heart disease in male family member before age 55 Patient's mother is Social History Social History Social History: The patient smokes 1/2 ppd. He is and has 2 sons. 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 Patient denies any all alcohol marijuana or illicit drugs. His sons are his durable power pumpman for healthcare. Code status full code Smoking packs per day: 0.5 Smoking cigarettes per day: 10.0 Years smoked: 35 Smoking pack-years: 17.50 Smoking status: Current every day smoker Tobacco type: cigarettes Second hand tobacco smoke exposure: Yes Alcohol intake: former Drinks per week: 6 Substance use: never Substance use type: does not use Lack of Transportation: No Lack of Food: Often True Current Housing: I Have Housing Concerned About Future Housing: YES Difficulty Paying Gas/Electric Bills: YES Difficulty Paying for Meds: YES Currently Unemployed: No Education: Associate Degree Difficulty w/ Childcare or Family Care: No Spiritual care concerns: No Exam Narrative: APPEARANCE: No acute distress, nontoxic, resting in bed EYES: EOMI HEENT: Normocephalic, atraumatic, OMM RESPIRATORY: No respiratory distress Clear to auscultation bilaterally with no rhonchi wheezing or rales. CARDIOVASCULAR: Regular rate and rhythm without murmurs rubs or gallops. ABDOMINAL: Soft, nondistended tender palpation epigastric region right upper quadrant and left upper quadrant, no tenderness in right lower quadrant and left lower quadrant no rebound or guarding MUSCULOSKELETAl: Moves all extremities. No clubbing, cyanosis or edema. NEURO: Awake and alert. Following commands, speech normal, no focal deficits SKIN:: Warm, dry. No rashes lesions or abrasions PSYCHIATRIC: Normal affect/mood, Course Course Emergency Course: Patient given a GI cocktail in ED subsequently had emesis Previous records is reviewed previous admission the patient did leave AGAINST MEDICAL ADVICE he had an echo at that time but it was not read. The patient's liver enzymes have increased since previous admission Discussed wit
[2022-10-05] MEDS: ASPIRIN 81 MG CHEWABLE TABLET 324 MG PO (02:35)
[2022-10-05 03:01] LABS: Basophils Percent Auto 0.5 % (0.2-1.2); Eosinophils Absolute Auto 0.1 K/mm3 (0-0.3); Eosinophils Percent Auto 0.7 % (0-4.4); Hematocrit 48.3 % (42.0-52.0); Hemoglobin 15.9 g/dL (14.0-18.0); Immature Granulocyte Absolute 0.04 K/mm3 (0.00-0.031); Immature Granulocyte Percent A 0.5 % (0-0.5); Lymphocytes Absolute Auto 1.67 K/mm3 (0.9-3.2); Lymphocytes Percent Auto 20.1 % (18.3-44.2); Mean Corpuscular HGB Conc 32.9 g/dl (32-36); Mean Corpuscular Hemoglobin 28.7 pg (26-34); Mean Corpuscular Volume 87.2 fl (80-100); Mean Platelet Volume 9.5 fl (7.4-10.4); Monocytes Absolute Auto 0.5 K/mm3 (0.1-0.6); Monocytes Percent Auto 6.5 % (2.6-8.5); Neutrophils Percent Auto 71.7 % (45.5-73.1); Platelet Count Result 323 k/mm3 (150-375); Red Blood Count 5.54 M/mm3 (4.6-6.20); Red Cell Distribution Width 12.7 % (11.5-14.5); White Blood Count 8.3 K/mm3 (4.5-10.0)
[2022-10-05 03:05] LABS: Alanine Aminotransferase 283 U/L (6-50); Albumin Level 3.7 g/dL (3.5-5.1); Alkaline Phosphatase 110 U/L (38-126); Anion Gap 1 mmol/L (8-16); Aspartate Amino Transferase 463 U/L (17-59); Blood Urea Nitrogen 21 mg/dL (9-20); Calcium 8.8 mg/dL (8.4-10.2); Carbon Dioxide 38 mmol/L (22-30); Chloride 94 mmol/L (98-107); Estimated CRCL calculation 64 ml/min; Estimated Glomerular Filt Rate > 60; Glucose 139 mg/dL (65-110); Lipase 248 U/L (23-300); Potassium 3.9 mmol/L (3.4-5.0); Sodium 133 mmol/L (137-145)
[2022-10-05 03:07] LABS: INR 1.1; Prothrombin Time 13.3 Seconds (11.1-14.7)
[2022-10-05 03:08] LABS: Partial Thromboplastin Time 29.2 SECONDS (22.3-36.8)
[2022-10-05 03:11] LABS: D Dimer 0.58 ug/mL (<0.48)
[2022-10-05 03:16] LABS: Troponin I 0.033 ng/mL (0.000-0.034)
--- NOTE | 2022-10-05 03:24 | PC.NURSE ---
Report received from TIANNA Sparks. Assumed care of patient at this time.
--- NOTE | 2022-10-05 03:48 | PC.NURSE ---
Patient taken to CT via stretcher.
--- NOTE | 2022-10-05 03:50 | PC.NURSE ---
Called lab to add on BNP, spoke with Jannet.
[2022-10-05 04:08] LABS: NT Pro B Type Natriuretic Pept 978 pg/mL (5-100)
[2022-10-05 05:13] LABS: Influenza A QL RT-PCR Negative (Negative); Influenza B QL RT-PCR Negative (Negative); SARS-CoV-2 RNA PCR Positive
[2022-10-05 05:59] LABS: Troponin I 0.029 ng/mL (0.000-0.034)
[2022-10-05 08:52] LABS: Troponin I 0.029 ng/mL (0.000-0.034)
--- NOTE | 2022-10-05 12:02 | PC.NURSE ---
Patient placed in hospital bed for comfort
--- NOTE | 2022-10-05 14:05 | PC.NURSE ---
Consulted Dr. Argueta at this time.
--- NOTE | 2022-10-05 15:00 | PM.CNGS ---
Assessment and Plan Assessment and plan (1) Cholelithiasis: Code(s): K80.20 - Calculus of gallbladder without cholecystitis without obstruction Status: Acute Assessment and Plan: CTA reviewed and discussed with the patient in detail. There is cholelithiasis but no evidence of cholecystitis. His chest pain and epigastric abdominal pain began following a fatty meal and could have been related to biliary colic or his gallstones. His pain has completely subsided and his abdominal exam is benign. His WBC count is normal and he is afebrile. His cardiac status greatly increases his risks of having surgery. There is no indication for urgent surgery at this time, and we would recommend treating him conservatively with diet and lifestyle modifications while he is recovering from COVID. This will allow him time to also follow-up with Cardiology and hopefully remain compliant in treatment for his cardiomyopathy. Okay from our standpoint to advance his diet. I educated him on a low fat diet and recommended to follow this after discharge. Would also recommend that if he wanted to consider an elective cholecystectomy in the future, then this should probably be done at a tertiary care facility due to his cardiac history. (2) COVID-19: Code(s): U07.1 - COVID-19 Status: Acute Assessment and Plan: Tested positive for COVID on 10/02/22 and again today. CTA negative for PE. Management per Hospitalist. (3) Elevated LFTs: Code(s): R79.89 - Other specified abnormal findings of blood chemistry Status: Acute Assessment and Plan: AST and ALT elevated when admitted a few days ago and have increased today. Bilirubin and alk phos normal. Could be related to COVID or his gallbladder or combination. See plan above. (4) Dilated cardiomyopathy: Code(s): I42.0 - Dilated cardiomyopathy Status: Acute Assessment and Plan: Echo from 10/03/22 reviewed and showed an EF 20-25%. Continue f/u with Cardiology as scheduled. (5) Hypertension: Code(s): I10 - Essential (primary) hypertension Status: Acute Plan I have discussed the patient's case and plan of care with Dr. Argueta. Thank you for allowing us to see the patient in consultation and we will continue to follow along with you. History of Present Illness Consult details Consult date: 10/05/22 Reason for consult: gallstones Requesting physician: Jf Miguel DO Narrative: This is a 52-year-old male with a history of dilated cardiomyopathy and was recently admitted to [facility] on 10/02/2022 for COVID-19 and shortness of breath. He was evaluated by Cardiology and had an echocardiogram that showed an EF of 20-25%. He was also found to have elevated LFTs. He was started on Decadron and remdesivir. He left against medical advice on 10/03/2022. The patient does report having a cough for about 8 days prior to coming into the ER the first time. He also reports having shortness of breath and also reports abdominal edema and distention. He reports feeling the same as he did when he was previously treated for his dilated cardiomyopathy. He follows with the cardiology group at [facility] and reportedly ?stopped taking care of himself? and was noncompliant with follow-up and treatment. Due to the shortness of breath and edema, he was concerned about his heart and came into the ER. He did feel better when he left AMA and felt his shortness of breath and edema improved. He did well at home until last night around 7:00 p.m., when he had a sudden onset of substernal chest tightness that worsened with time. It transitioned into stabbing epigastric pain. He does report this pain radiated slightly to the right upper quadrant. He then developed nausea and vomiting. He reportedly had a ham steak at home for dinner about an hour before the onset of his pain. Due to his persistent pain, he presented back to the ER early this morning. Labs showed a normal
--- NOTE | 2022-10-05 15:38 | ADMGEN ---
This patient, Jose Juan Rodriguez, was admitted to [facility] Surg Room 313-01. Patient/family oriented to hospital policies and general routines including ID bracelet, bed and alarms, visiting hours, pain management, procedures, bathroom and other care routines, personal items, smoking policy, room service/diet, and visiting hours. Information on how to activate the Rapid Response Team has been discussed. Patient/Family are encouraged to report perceived risks to care and to ask questions if they do not understand what they are told or what they should do.
--- NOTE | 2022-10-05 17:12 | PM.IMHP ---
H&P: HPI History of Present Illness Date/Time: 10/05/22 17:12 Narrative: ED-HPI narrative: Patient presents emergency department from home for chest pain.? Patient states that chest pain began this evening around 7 PM.? The pain is located in the midsternal lower chest and upper abdomen described as sharp and stabbing in nature.? Nothing makes the pain better or worse.? Patient states that he was recently diagnosed with COVID-19.? Patient had been admitted to the hospital but had left AGAINST MEDICAL ADVICE he has a history of ischemic cardiomyopathy he denies any fevers or chills denies any shortness of breath.? Patient states he did have 1 episode of nausea and vomiting patient is known to me he was admitted on 10/02/2022 with history of severe cardiomyopathy and patient was positive for COVID-19, patient was seen by mechanical press operator started the patient on guideline appropriate cardiac medications, however on 10/03 later in the the day patient decided to leave AMA, now presents to emergency department with complaint right upper quadrant pain suspicious for cholelithiasis patient was seen by General surgery does not suspect patient has cholecystitis is patient does not need any surgical intervention, for COVID-19 patient is not requiring any oxygen however patient with severe cardiomyopathy will have Cardiology consult the patient and will resume patient's home medication, currently patient denies any chest pain shortness of breath, will continue to monitor and further recommendation to follow. Review of Systems Cardiovascular: Cardiovascular: Reports chest pain, Denies lightheadedness and Reports dyspnea PMFSH Past Medical History Medical History (Updated 10/06/22 @ 11:48 by Jennifer Haywood MD) Chronic combined systolic and diastolic CHF (congestive heart failure) Dilated cardiomyopathy Hypertension Surgical History Surgical History History of carpal tunnel release Hx of cardiac catheterization Family History Family History Mother Family history of heart disease in male family member before age 55 Patient's mother is Social History Social History Social History: The patient smokes 1/2 ppd. He is and has 2 sons. 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 Patient denies any all alcohol marijuana or illicit drugs. His sons are his durable power privacy attorney for healthcare. Code status full code Smoking packs per day: 0.5 Smoking cigarettes per day: 10.0 Years smoked: 35 Smoking pack-years: 17.50 Smoking status: Former smoker Tobacco type: cigarettes Second hand tobacco smoke exposure: Yes Alcohol intake: never Drinks per week: 6 Substance use: never Substance use type: does not use Lack of Transportation: No Lack of Food: Sometimes True Current Housing: I Have Housing Concerned About Future Housing: No Difficulty Paying Gas/Electric Bills: No Difficulty Paying for Meds: No Currently Unemployed: YES Education: Associate Degree Difficulty w/ Childcare or Family Care: No Spiritual care concerns: No Meds Home Medications and Allergies Home Medications Medication Instructions Recorded Confirmed Type carvedilol 6.25 mg tablet (Coreg) 6.25 mg PO Q12HR #60 tabs 10/03/22 10/05/22 Rx sacubitril 24 mg-valsartan 26 mg 1 tab PO Q12HR #60 tabs 10/03/22 10/05/22 Rx tablet (Entresto) spironolactone 25 mg tablet 25 mg PO QAM #30 tabs 10/03/22 10/05/22 Rx Allergies Allergy/AdvReac Type Severity Reaction Status Date / Time No Known Allergies Allergy Unknown Verified 10/05/22 15:47 Vital Signs Vital Signs - 24 hr 10/05/22 02:21 10/05/22 02:59 10/05/22 03:00 Temperature 97.0 F L Pulse Rate 59 L 65 64 Respiratory Rate 20 15 Blood Pressure 99/60 L Pulse Oximetry 98 Oxyg
[2022-10-05] MEDS: SACUBITRIL/VALSARTAN 24-26 MG TABLET 1 TAB PO (21:25)
[2022-10-05] MEDS: carvediloL 6.25 MG TABLET PO (21:25)
[2022-10-06] VITALS (8 sets, daily range): BP systolic 96–107; BP diastolic 56–71; PULSE 65–81; RESP 14–22; TEMP 35.6–37; O2SAT 92–94
[2022-10-06] MEDS: MORPHINE SULFATE (*CRX) 4 MG/ML INJ IV PUSH ×3 (00:02→22:17)
[2022-10-06 06:43] LABS: Basophils Percent Auto 0.5 % (0.2-1.2); Eosinophils Absolute Auto 0.2 K/mm3 (0-0.3); Eosinophils Percent Auto 3.1 % (0-4.4); Hematocrit 46.2 % (42.0-52.0); Immature Granulocyte Absolute 0.04 K/mm3 (0.00-0.031); Immature Granulocyte Percent A 0.7 % (0-0.5); Lymphocytes Absolute Auto 1.56 K/mm3 (0.9-3.2); Lymphocytes Percent Auto 27.1 % (18.3-44.2); Mean Corpuscular HGB Conc 32.5 g/dl (32-36); Mean Corpuscular Hemoglobin 28.1 pg (26-34); Mean Corpuscular Volume 86.7 fl (80-100); Mean Platelet Volume 9.1 fl (7.4-10.4); Monocytes Absolute Auto 0.5 K/mm3 (0.1-0.6); Monocytes Percent Auto 7.8 % (2.6-8.5); Neutrophils Absolute Auto 3.5 K/mm3 (1.3-6.7); Neutrophils Percent Auto 60.8 % (45.5-73.1); Platelet Count Result 266 k/mm3 (150-375); Red Blood Count 5.33 M/mm3 (4.6-6.20); Red Cell Distribution Width 12.8 % (11.5-14.5); White Blood Count 5.8 K/mm3 (4.5-10.0)
[2022-10-06 06:50] LABS: Alanine Aminotransferase 450 U/L (6-50); Albumin Level 3.2 g/dL (3.5-5.1); Alkaline Phosphatase 129 U/L (38-126); Anion Gap 3 mmol/L (8-16); Aspartate Amino Transferase 448 U/L (17-59); Bilirubin,Total 1.3 mg/dL (0.2-1.3); Blood Urea Nitrogen 14 mg/dL (9-20); Calcium 7.9 mg/dL (8.4-10.2); Carbon Dioxide 31 mmol/L (22-30); Chloride 97 mmol/L (98-107); Estimated CRCL calculation 70 ml/min; Estimated Glomerular Filt Rate > 60; Glucose 106 mg/dL (65-110); Magnesium 2.1 mg/dL (1.6-2.3); Potassium 3.8 mmol/L (3.4-5.0); Sodium 131 mmol/L (137-145)
[2022-10-06] MEDS: SPIRONOLACTONE 25 MG TABLET PO (09:00)
[2022-10-06] MEDS: carvediloL 6.25 MG TABLET PO ×2 (09:00→20:40)
[2022-10-06] MEDS: SACUBITRIL/VALSARTAN 24-26 MG TABLET 1 TAB PO ×2 (09:00→20:40)
--- NOTE | 2022-10-06 11:02 | PM.CNCAR ---
Assessment and Plan Assessment and plan (1) Dilated cardiomyopathy: Code(s): I42.0 - Dilated cardiomyopathy Status: Acute Assessment and Plan: Dilated cardiomyopathy since 2016, unfortunately noncompliant with follow-up. EF has again declined to 20-25%. continue medical therapy office follow-up (2) Chronic combined systolic and diastolic CHF (congestive heart failure): Code(s): I50.42 - Chronic combined systolic (congestive) and diastolic (congestive) heart failure Status: Acute Assessment and Plan: On guideline directed medical therapy with Entresto, spironolactone and carvedilol May add Farxiga as well at a later date. Does not appear volume overloaded on exam, by chest x-ray or CT proBNP has decreased to 980 follow-up for signs of volume overload or decompensation. (3) Shortness of breath: Code(s): R06.02 - Shortness of breath Status: Acute Assessment and Plan: shortness of breath due to acute COVID infection, and chronic CHF. (4) Cholelithiasis: Code(s): K80.20 - Calculus of gallbladder without cholecystitis without obstruction Status: Acute Assessment and Plan: planning on conservative management. (5) COVID-19: Code(s): U07.1 - COVID-19 Status: Acute Assessment and Plan: Treatment per hospitalist History of Present Illness History of Present Illness Consult date/time: 10/06/22 11:02 Reason For Visit: Cholelithiasis/Elevated LFTs/COVID 19 Narrative: Jose Juan Rodriguez is a 52-year-old male whom we were asked to see at the request of Dr. James for advice and opinion regarding his severe cardiomyopathy in consultation. Mr. Mitchell has a history of a nonischemic cardiomyopathy Since 2016. At the time his EF was 10-15% and he had angiographically non disease coronary arteries. Apparently his ejection fraction improved to 55% but his follow-up in our office has been inconsistent.. He was admitted on October 02 with congestive heart failure in seen by Dr. Smith. He was positive for COVID also. He had been out of his medications for quite some time. He received a dose of Lasix in the emergency room with improvement. Resumption of guideline directed medical therapy was pursued. Elevated liver enzymes were noted. Echo showed ejection fraction 20-25% with severe LV enlargement and severely reduced systolic function, diastolic dysfunction, no significant valve disease. Unfortunately he left AMA. He tells me he left because he did not feel like Being hospitalized was doing anything for him that he could not do at home. The patient was readmitted on 10/05/2022. he tells me he came in primarily for shortness of breath which has been going on for a week or so. He has also had a cough but no fevers. He alsohad right upper quadrant and right lower chest sharp pain lasting for several hours on the night prior to admission, and had some emesis in the emergency room. He was found to have cholelithiasis but not cholecystitis. He was seen by Dr. Hernandez who recommended conservative management, a low-fat diet and follow-up. he has had some intermittent right lower chest /right upper quadrant pain. He denied any well this morning ( was given eggs and sausage). He has had some intermittent abdominal tightness and swelling which was resolved last admission with Lasix. No lower extremity edema. States he was taking his medications after discharge. Review of Systems Constitutional: Constitutional: Denies fever(s) Eyes: Eyes: Reports no additional eye complaints ENT: Denies dysphagia and Denies epistaxis Cardiovascular: Cardiovascular: Reports chest pain, Denies pedal edema, Denies lightheadedness and Reports dyspnea Respiratory: Respiratory: Denies chest congestion, Reports cough, Reports dyspnea and Reports dyspnea on exertion Gastrointestinal: Gastrointestinal: Reports abdominal pain an
--- NOTE | 2022-10-06 14:39 | PM.IMPN ---
Progress Note: A&P Assessment and Plan (1) Cholelithiasis: Code(s): K80.20 - Calculus of gallbladder without cholecystitis without obstruction Status: Acute Assessment and Plan: ED-[facility] narrative: Patient presents emergency department from home for chest pain.? Patient states that chest pain began this evening around 7 PM.? The pain is located in the midsternal lower chest and upper abdomen described as sharp and stabbing in nature.? Nothing makes the pain better or worse.? Patient states that he was recently diagnosed with COVID-19.? Patient had been admitted to the hospital but had left AGAINST MEDICAL ADVICE he has a history of ischemic cardiomyopathy he denies any fevers or chills denies any shortness of breath.? Patient states he did have 1 episode of nausea and vomiting patient is known to me as patient was admitted on 10/02/2022 with complaint of shortness of breath patient was positive COVID-19 has history of severe cardiomyopathy and had been non compliant with his medication and follow-up with his cytology technologist, however patient did not require any oxygen while in the hospital, patient was seen by Cardiology and resume guidelines therapy for his severe cardiomyopathy however patient decided to leave AMA, so he presents with complaint of right upper quadrant pain, CT scan abdomen showed cholelithiasis but no acute cholecystitis similarly was seen by General surgery service and suggested patient does not need any surgical intervention, patient remains clinically stable denies any chest pain shortness of breath, or palpitation, it does continue to complain of right upper quadrant pain, patient is not requiring any oxygen,, will consult cytology technologist for severe cardiomyopathy and further recommendation to follow, will resume his home medication. 10/06/2022 interval history: today patient remains clinically stable denies any chest pain or shortness of breath, seen by Cardiology does not suspect patient is volume overloaded rather euvolemic, will continue the current regimen and will have PT OT evaluate the patient and further recommendation to follow. patient with ejection fraction of 20-25% will need LifeVest before discharge home. (2) Chronic combined systolic and diastolic CHF (congestive heart failure): Code(s): I50.42 - Chronic combined systolic (congestive) and diastolic (congestive) heart failure Status: Acute Assessment and Plan: patient with history severe cardiomyopathy with ejection fraction of 20-25% will resume patient's home meds, patient will be seen cytology technologist and further recommendation to follow, and will need LifeVest before discharge home (3) COVID-19: Code(s): U07.1 - COVID-19 Status: Acute Assessment and Plan: patient remains clinically stable not requiring any oxygen, no treatment for COVID was started. Subjective Date/time seen: 10/06/22 14:39 ED-HPI narrative: Patient presents emergency department from home for chest pain.? Patient states that chest pain began this evening around 7 PM.? The pain is located in the midsternal lower chest and upper abdomen described as sharp and stabbing in nature.? Nothing makes the pain better or worse.? Patient states that he was recently diagnosed with COVID-19.? Patient had been admitted to the hospital but had left AGAINST MEDICAL ADVICE he has a history of ischemic cardiomyopathy he denies any fevers or chills denies any shortness of breath.? Patient states he did have 1 episode of nausea and vomiting patient is known to me as patient was admitted on 10/02/2022 with complaint of shortness of breath patient was positive COVID-19 has history of severe cardiomyopathy and had been non compliant with his medication and follow-up with his cytology technologist, however patient did not require any oxygen while in the hospital, patient was seen by Cardiology and resume guidelines therapy for his severe cardiomyopathy however patient decided to leave
--- NOTE | 2022-10-06 14:39 | PM.IMHP ---
H&P: HPI History of Present Illness Date/Time: Chief Complaint: Abdominal pain Narrative: ED-HPI narrative: Patient presents emergency department from home for chest pain.? Patient states that chest pain began this evening around 7 PM.? The pain is located in the midsternal lower chest and upper abdomen described as sharp and stabbing in nature.? Nothing makes the pain better or worse.? Patient states that he was recently diagnosed with COVID-19.? Patient had been admitted to the hospital but had left AGAINST MEDICAL ADVICE he has a history of ischemic cardiomyopathy he denies any fevers or chills denies any shortness of breath.? Patient states he did have 1 episode of nausea and vomiting patient is known to me as patient was admitted on 10/02/2022 with complaint of shortness of breath patient was positive COVID-19 has history of severe cardiomyopathy and had been non compliant with his medication and follow-up with his metal and plastic heater, however patient did not require any oxygen while in the hospital, patient was seen by Cardiology and resume guidelines therapy for his severe cardiomyopathy however patient decided to leave AMA, so he presents with complaint of right upper quadrant pain, CT scan abdomen showed cholelithiasis but no acute cholecystitis similarly was seen by General surgery service and suggested patient does not need any surgical intervention, patient remains clinically stable denies any chest pain shortness of breath, or palpitation, it does continue to complain of right upper quadrant pain, patient is not requiring any oxygen,, will consult metal and plastic heater for severe cardiomyopathy and further recommendation to follow, will resume his home medication patient is admitted as inpatient with history of severe cardiomyopathy patient will stay in the hospital for 2 midnights. Review of Systems Constitutional: Constitutional: Denies fever(s) Eyes: Eyes: Reports no additional eye complaints ENT: Denies dysphagia and Denies epistaxis Cardiovascular: Cardiovascular: Reports chest pain, Denies pedal edema, Denies lightheadedness and Reports dyspnea Respiratory: Respiratory: Denies chest congestion, Reports cough, Reports dyspnea and Reports dyspnea on exertion Gastrointestinal: Gastrointestinal: Reports abdominal pain and Denies hematochezia Comments: Right upper quadrant and right lower chest pain Genitourinary: Genitourinary: Denies hematuria Musculoskeletal: Musculoskeletal: Reports no additional musculoskeletal complaints Integumentary/Breasts: Skin/Breast: Reports system reviewed and no additional complaints, except as docu Neurologic: Reports system reviewed and no additional complaints, except as documented, Denies behavioral changes and Denies confusion Psychiatric: Psychiatric: Denies behavioral changes and Denies confusion PMFSH Past Medical History Medical History (Updated 10/06/22 @ 11:48 by Jennifer Haywood MD) Chronic combined systolic and diastolic CHF (congestive heart failure) Dilated cardiomyopathy Hypertension Surgical History Surgical History History of carpal tunnel release Hx of cardiac catheterization Family History Family History Mother Family history of heart disease in male family member before age 55 Patient's mother is Social History Social History Social History: The patient smokes 1/2 ppd. He is and has 2 sons. 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 Patient denies any all alcohol marijuana or illicit drugs. His sons are his durable power erisa attorney for healthcare. Code status full code Smoking packs per day: 0.5 Smoking cigarettes per day: 10.0 Years smoked: 35 Smoking pack-years: 17.50 Smoking status: Former smoker Tobacco type: cigarettes Second hand tobac
[2022-10-06] MEDS: ENOXAPARIN 40 MG/0.4 ML SYRINGE SUB-Q (14:51)
[2022-10-06] MEDS: guaiFENesin/DEXTROMETHORPHAN 10 ML UDC PO (22:17)
[2022-10-07] VITALS (11 sets, daily range): BP systolic 88–119; BP diastolic 59–75; PULSE 64–86; RESP 14–18; TEMP 35.7–36.3; O2SAT 93–100
[2022-10-07 07:02] LABS: Hematocrit 49.8 % (42.0-52.0); Hemoglobin 16.2 g/dL (14.0-18.0); Mean Corpuscular HGB Conc 32.5 g/dl (32-36); Mean Corpuscular Hemoglobin 28.6 pg (26-34); Mean Corpuscular Volume 87.8 fl (80-100); Platelet Count Result 258 k/mm3 (150-375); Red Blood Count 5.67 M/mm3 (4.6-6.20); White Blood Count 6.9 K/mm3 (4.5-10.0)
[2022-10-07 07:22] LABS: Alanine Aminotransferase 392 U/L (6-50); Albumin Level 3.5 g/dL (3.5-5.1); Alkaline Phosphatase 141 U/L (38-126); Anion Gap 6 mmol/L (8-16); Aspartate Amino Transferase 269 U/L (17-59); Bilirubin,Total 2.6 mg/dL (0.2-1.3); Blood Urea Nitrogen 11 mg/dL (9-20); Carbon Dioxide 29 mmol/L (22-30); Chloride 96 mmol/L (98-107); Estimated CRCL calculation 70 ml/min; Estimated Glomerular Filt Rate > 60; Glucose 104 mg/dL (65-110); Magnesium 2.1 mg/dL (1.6-2.3); Potassium 4.2 mmol/L (3.4-5.0); Sodium 131 mmol/L (137-145)
[2022-10-07] MEDS: carvediloL 6.25 MG TABLET PO ×2 (08:55→20:59)
[2022-10-07] MEDS: ENOXAPARIN 40 MG/0.4 ML SYRINGE SUB-Q (08:55)
[2022-10-07] MEDS: SACUBITRIL/VALSARTAN 24-26 MG TABLET 1 TAB PO ×2 (08:56→20:59)
[2022-10-07] MEDS: SPIRONOLACTONE 25 MG TABLET PO (08:56)
--- NOTE | 2022-10-07 13:09 | PC.NURSE ---
Made aware of BP of 88/62. Told that he received all bp medications this morning. told me to monitor bp more closely during the rest of the shift.
--- NOTE | 2022-10-07 13:12 | PM.IMPN ---
Progress Note: A&P Assessment and Plan (1) Cholelithiasis: Code(s): K80.20 - Calculus of gallbladder without cholecystitis without obstruction Status: Acute Assessment and Plan: ED-[facility] narrative: Patient presents emergency department from home for chest pain.? Patient states that chest pain began this evening around 7 PM.? The pain is located in the midsternal lower chest and upper abdomen described as sharp and stabbing in nature.? Nothing makes the pain better or worse.? Patient states that he was recently diagnosed with COVID-19.? Patient had been admitted to the hospital but had left AGAINST MEDICAL ADVICE he has a history of ischemic cardiomyopathy he denies any fevers or chills denies any shortness of breath.? Patient states he did have 1 episode of nausea and vomiting patient is known to me as patient was admitted on 10/02/2022 with complaint of shortness of breath patient was positive COVID-19 has history of severe cardiomyopathy and had been non compliant with his medication and follow-up with his corrections sergeant, however patient did not require any oxygen while in the hospital, patient was seen by Cardiology and resume guidelines therapy for his severe cardiomyopathy however patient decided to leave AMA, so he presents with complaint of right upper quadrant pain, CT scan abdomen showed cholelithiasis but no acute cholecystitis similarly was seen by General surgery service and suggested patient does not need any surgical intervention, patient remains clinically stable denies any chest pain shortness of breath, or palpitation, it does continue to complain of right upper quadrant pain, patient is not requiring any oxygen,, will consult corrections sergeant for severe cardiomyopathy and further recommendation to follow, will resume his home medication. 10/06/2022 interval history: today patient remains clinically stable denies any chest pain or shortness of breath, seen by Cardiology does not suspect patient is volume overloaded rather euvolemic, will continue the current regimen and will have PT OT evaluate the patient and further recommendation to follow. patient with ejection fraction of 20-25% will need LifeVest before discharge home. 10/07/2022: Present with chest pain shortness of breath/epigastric right upper quadrant area brain. Sharp stabbing nature. Positive for COVID-19 the not hypoxic supportive treatment Cholelithiasis on CT reviewed general surgery recommendation Elevated liver enzymes improving now suspect related to cardiomyopathy. CT with no abnormality in liver. Will check ultrasound right upper could relate to congestive hepatopathy initial chest x-ray with patchy diffuse opacities throughout the lungs consistent with atelectasis versus pneumonia versus pulmonary edema on 10/02/2022 follow-up chest x-ray with resolution of those findings CTA does report tree-in-bud abnormality in the dependent areas some lower lobes. On IV Zosyn. Which will be continued Cardiomyopathy worsened to 20-25% on repeat echo. Placed on Entresto Coreg and spironolactone. Monitor blood pressure Will lower spironolactone to 12.5 mg daily DVT prophylaxis Lovenox Attempted to contact corrections sergeant for LifeVest evaluation: Awaiting return call. (2) Chronic combined systolic and diastolic CHF (congestive heart failure): Code(s): I50.42 - Chronic combined systolic (congestive) and diastolic (congestive) heart failure Status: Acute Assessment and Plan: patient with history severe cardiomyopathy with ejection fraction of 20-25% will resume patient's home meds, patient will be seen corrections sergeant and further recommendation to follow, and will need LifeVest before discharge home (3) COVID-19: Code(s): U07.1 - COVID-19 Status: Acute Assessment and Plan: patient remains clinically stable not requiring any oxygen, no treatment for COVID was started. Subjective Date/time seen: 10/07/22 13:12 Interval hi
[2022-10-07] MEDS: MORPHINE SULFATE (*CRX) 4 MG/ML INJ 2 MG IV PUSH ×2 (13:35→23:17)
--- NOTE | 2022-10-07 14:20 | PM.PNCARD ---
Progress Note: A&P Assessment and Plan (1) Dilated cardiomyopathy: Code(s): I42.0 - Dilated cardiomyopathy Status: Acute Assessment and Plan: Dilated cardiomyopathy since 2016, unfortunately noncompliant with follow-up. EF has again declined to 20-25%. continue medical therapy; spironolactone has been decreased because of low blood pressure. office follow-up (2) Chronic combined systolic and diastolic CHF (congestive heart failure): Code(s): I50.42 - Chronic combined systolic (congestive) and diastolic (congestive) heart failure Status: Acute Assessment and Plan: On guideline directed medical therapy with Entresto, spironolactone and carvedilol May add Farxiga as well at a later date. Does not appear volume overloaded on exam, by chest x-ray or CT proBNP decreased to 980 follow-up for signs of volume overload or decompensation. (3) Shortness of breath: Code(s): R06.02 - Shortness of breath Status: Acute Assessment and Plan: shortness of breath due to acute COVID infection, and chronic CHF. Improved. (4) Chest pain: Code(s): R07.9 - Chest pain, unspecified Status: Acute Assessment and Plan: I suspect this is due to his cholelithiasis but it has been several years since he was evaluated for CAD. Check trop ROKTiscan tomorrow (5) At risk for sudden cardiac : Code(s): Z91.89 - Other specified personal risk factors, not elsewhere classified Status: Acute Assessment and Plan: patient's ejection fraction is 20-25% and he is at risk of sudden cardiac . Counseled patient about his risk. Counseled patient about a LifeVest for primary prevention. Patient wore LifeVest for several months in the past. He wants to pursue this and states he will be compliant with wearing the life vest. Will order. (6) Cholelithiasis: Code(s): K80.20 - Calculus of gallbladder without cholecystitis without obstruction Status: Acute Assessment and Plan: planning on conservative management. Has elevated LFTs, unclear if due to cholelithiasis or hepatic congestion from CHF but improving. (7) COVID-19: Code(s): U07.1 - COVID-19 Status: Acute Assessment and Plan: Treatment per hospitalist . Not requiring oxygen. Subjective Date/time seen: Follow-up for cardiomyopathy and heart failure. Mr. Rodriguez has a history of a nonischemic cardiomyopathy? Since 2016.? At the time his EF was 10-15% and he had angiographically non disease coronary arteries.? Apparently his ejection fraction improved to 55% but his follow-up in our office has been inconsistent. He was admitted on October 02 with congestive heart failure in seen by Dr. Smith.? He was positive for COVID also.? He had been out of his medications for quite some time.? He received a dose of Lasix in the emergency room with improvement.? ? Resumption of guideline directed medical therapy was pursued. ? Elevated liver enzymes were noted.? Echo showed? ejection fraction 20-25% with severe LV enlargement and severely reduced systolic function, diastolic dysfunction, no significant valve disease.? Unfortunately he left AMA.? He was readmitted 10/05/2022 for shortness of breath and right upper quadrant/right lower chest discomfort. He was found to have cholelithiasis which is being treated medically and conservatively. 10/07/22 14:20 pm: Still having intermittent sharp pain, now mostly in the epigastric and lower chest area, at rest, relieved with morphine. Blood pressure somewhat soft, 92-119 systolic. On room air. LFTs continue to decline. Review of Systems Review of Systems: Chest/epigastric pain as above. No shortness of breath ambulating in room. No abdominal pain, lightheadedness, edema Exam Const: General: cooperative and healthy appearing; No confusion Orientation/consciousness: oriented to person, patient ti
[2022-10-07] MEDS: guaiFENesin/DEXTROMETHORPHAN 10 ML UDC PO (23:17)
[2022-10-08] VITALS (12 sets, daily range): BP systolic 92–116; BP diastolic 51–75; PULSE 60–77; RESP 12–18; TEMP 36.1–36.6; O2SAT 95–100
[2022-10-08] MEDS: MORPHINE SULFATE (*CRX) 4 MG/ML INJ 2 MG IV PUSH (05:16)
[2022-10-08 06:40] LABS: Hematocrit 48.4 % (42.0-52.0); Hemoglobin 15.9 g/dL (14.0-18.0); Mean Corpuscular HGB Conc 32.9 g/dl (32-36); Mean Corpuscular Hemoglobin 27.9 pg (26-34); Mean Corpuscular Volume 85.1 fl (80-100); Mean Platelet Volume 9.1 fl (7.4-10.4); Platelet Count Result 263 k/mm3 (150-375); Red Blood Count 5.69 M/mm3 (4.6-6.20); Red Cell Distribution Width 12.8 % (11.5-14.5); White Blood Count 8.7 K/mm3 (4.5-10.0)
[2022-10-08 06:52] LABS: Alanine Aminotransferase 441 U/L (6-50); Albumin Level 3.8 g/dL (3.5-5.1); Alkaline Phosphatase 166 U/L (38-126); Anion Gap 7 mmol/L (8-16); Aspartate Amino Transferase 292 U/L (17-59); Bilirubin,Total 4.1 mg/dL (0.2-1.3); Blood Urea Nitrogen 12 mg/dL (9-20); Calcium 8.4 mg/dL (8.4-10.2); Carbon Dioxide 27 mmol/L (22-30); Chloride 99 mmol/L (98-107); Estimated CRCL calculation 70 ml/min; Estimated Glomerular Filt Rate > 60; Glucose 118 mg/dL (65-110); Magnesium 2.2 mg/dL (1.6-2.3); Sodium 133 mmol/L (137-145)
[2022-10-08 07:15] LABS: Troponin I 0.041 ng/mL (0.000-0.034)
--- NOTE | 2022-10-08 08:09 | ECG_ITS ---
Measurements Intervals [place] Rate: 42 P: 36 MO: 174 QRS: -58 QRSD: 110 T: 148 QT: 439 QTc: 367 Interpretive Statements SINUS BRADYCARDIA WITH MARKED RHYTHM IRREGULARITY MARKED LEFT AXIS DEVIATION [QRS AXIS < -30] MODERATE T-WAVE ABNORMALITY, CONSIDER LATERAL ISCHEMIA [-0.1+ mV T WAVE IN I/aVL/V5/V6] WARNING: DATA QUALITY MAY AFFECT INTERPRETATION COMPARED TO ECG 10/05/2022 02:29:34 THE T-WAVE INVERSION MAY BE SLIGHTLY MORE PRONOUNCED Electronically Signed On 10-08-2022 11:46:05 SURVEILLANCE SENSOR OPERATOR by Jennifer Haywood M.D.
--- NOTE | 2022-10-08 09:30 | PM.PNCARD ---
Progress Note: A&P Assessment and Plan (1) Dilated cardiomyopathy: Code(s): I42.0 - Dilated cardiomyopathy Status: Acute Assessment and Plan: Dilated cardiomyopathy since 2016, unfortunately noncompliant with follow-up. EF has again declined to 20-25%. continue medical therapy; spironolactone has been decreased because of low blood pressure. Will reduce the carvedilol dose due to bradycardia and hypotension, as well as the Entresto dose. office follow-up (2) Chronic combined systolic and diastolic CHF (congestive heart failure): Code(s): I50.42 - Chronic combined systolic (congestive) and diastolic (congestive) heart failure Status: Acute Assessment and Plan: On guideline directed medical therapy with Entresto, spironolactone and carvedilol May add Farxiga as well at a later date. Does not appear volume overloaded on exam, by chest x-ray or CT proBNP decreased to 980 follow-up for signs of volume overload or decompensation. (3) Shortness of breath: Code(s): R06.02 - Shortness of breath Status: Acute Assessment and Plan: shortness of breath due to acute COVID infection, and chronic CHF. Improved. (4) Chest pain: Code(s): R07.9 - Chest pain, unspecified Status: Acute Assessment and Plan: I suspect this is due to his cholelithiasis but it has been several years since he was evaluated for CAD. I am concerned that the pt cont to have intermittent epigastric pain, though abdominal exam in benign. He does have persitent lateral T wave inversion on his EKG and his trop, though modestly elevated, has risen Rec we change plans fr ischemia eval w/ Loraine to a cardiac cath Counseled pt re: cath, risks, poss stent; he is agreeable (5) At risk for sudden cardiac : Code(s): Z91.89 - Other specified personal risk factors, not elsewhere classified Status: Acute Assessment and Plan: patient's ejection fraction is 20-25% and he is at risk of sudden cardiac . Counseled patient about his risk. Counseled patient about a LifeVest for primary prevention. Patient wore LifeVest for several months in the past. He wants to pursue this and states he will be compliant with wearing the life vest. Ordered. (6) Cholelithiasis: Code(s): K80.20 - Calculus of gallbladder without cholecystitis without obstruction Status: Acute Assessment and Plan: planning on conservative management. Has elevated LFTs, unclear if due to cholelithiasis or hepatic congestion from CHF. A little worse today, but no high WBC Tx per hospitalists and surgeon (7) COVID-19: Code(s): U07.1 - COVID-19 Status: Acute Assessment and Plan: Treatment per hospitalist . Not requiring oxygen. Subjective Date/time seen: [place]? Since 2015.? At the time his EF was 10-15% and he had angiographically non disease coronary arteries.? Apparently his ejection fraction improved to 55% but his follow-up in our office has been inconsistent. He was admitted on October 02 with congestive heart failure in seen by Dr. Smith.? He was positive for COVID also.? He had been out of his medications for quite some time.? He received a dose of Lasix in the emergency room with improvement.? ? Resumption of guideline directed medical therapy was pursued. ? Elevated liver enzymes were noted.? Echo showed? ejection fraction 20-25% with severe LV enlargement and severely reduced systolic function, diastolic dysfunction, no significant valve disease.? Unfortunately he left AMA.? He was readmitted 10/05/2022 for shortness of breath and right upper quadrant/right lower chest discomfort.? He was found to have cholelithiasis which is being treated medically and conservatively. 10/07/22? 14:20 pm:? Still having intermittent sharp pain, now mostly in the epigastric and lower chest area, at rest, relieved with morphine.? Blood pressure
[2022-10-08] MEDS: ENOXAPARIN 40 MG/0.4 ML SYRINGE SUB-Q (09:32)
[2022-10-08] MEDS: SACUBITRIL/VALSARTAN 24-26 MG TABLET 1 TAB PO (09:33)
[2022-10-08] MEDS: carvediloL 6.25 MG TABLET PO (09:33)
--- NOTE | 2022-10-08 14:16 | WPDHPUPDATE1 ---
History and Physical Update Update Date/Time: 10/08/22 14:16 History and Physical has been reviewed, including an updated exam of the patient. There are NO changes in the patient's condition. Risks, benefits, and alternatives have been discussed and questions answered. Reviewed possible risks and complications with patient including breathing problems, bleeding problems, blood vessel problems, unanticipated surgery, allergic reactions, kidney problems, CVA, AL, and among others. Discussed possibility of stenting and possible need for DAPT. Discussed the possibility that if DAPT is interrupted stent thrombosis can occur resulting in heart attack and . Patient understands risks and desires to proceed. Patient agrees to proceed with procedure.
--- NOTE | 2022-10-08 14:16 | WPDMODSED ---
Moderate Sedation Note-Pt Data Patient Data Diagnosis: CP, cardiomyopathy, elevated trop Present Complaint: CP Procedure to be performed/Plan: Conscious sedation L heart cath Possible PCI Allergies Allergy/AdvReac Type Severity Reaction Status Date / Time No Known Allergies Allergy Unknown Verified 10/05/22 15:47 Home Medications Medication Instructions Recorded Confirmed Type carvedilol 6.25 mg tablet (Coreg) 6.25 mg PO Q12HR #60 tabs 10/03/22 10/05/22 Rx sacubitril 24 mg-valsartan 26 mg 1 tab PO Q12HR #60 tabs 10/03/22 10/05/22 Rx tablet (Entresto) spironolactone 25 mg tablet 25 mg PO QAM #30 tabs 10/03/22 10/05/22 Rx Current Medications: Active Medications Carvedilol (Carvedilol 3.125 Mg Tablet) 3.125 mg PO Q12HR [facility] Enoxaparin Sodium (Enoxaparin 40 Mg/0.4 Ml Syringe) 40 mg SUB-Q DAILY [facility] Last Admin: 10/08/22 09:32 Dose: 40 mg Guaifenesin/Dextromethorphan (Guaifenesin/Dextromethorphan 10 Ml Udc) 10 ml PO Q4H PRN PRN Reason: Cough Last Admin: 10/07/22 23:17 Dose: 10 ml Piperacillin/Tazobactam/Dextrose (Zosyn 3.375 Gm/D5w 50ml Pm) 3.375 gm in 50 mls @ 100 mls/hr IVPB Q6H [facility] Last Admin: 10/08/22 12:39 Dose: 100 mls/hr Sodium Chloride (Normal Saline Iv) 500 mls @ 100 mls/hr IV CONT .Q5H [facility] Morphine Sulfate (Morphine Sulfate (*Crx) 4 Mg/Ml Inj) 2 mg IV PUSH Q3HR PRN PRN Reason: Pain Rated 7-10 Last Admin: 10/08/22 05:16 Dose: 2 mg Ondansetron HCl (Ondansetron Inj 4 Mg/2 Ml Vial) 4 mg IV PUSH Q4H PRN PRN Reason: Nausea Sacubitril/Valsartan (Sacubitril/Valsartan 12-13 Mg Tablet) 1 tab PO Q12HR [facility] Spironolactone (Spironolactone 12.5 Mg Tablet) 12.5 mg PO QAM SAM Last Admin: 10/08/22 09:28 Dose: Not Given Sedation/Anesthesia: No previous sedation/anesthesia problems (including family history). [facility] Past Medical History Medical History (Updated 10/07/22 @ 14:50 by Jennifer Haywood MD) Chronic combined systolic and diastolic CHF (congestive heart failure) Dilated cardiomyopathy Hypertension Surgical History Surgical History History of carpal tunnel release Hx of cardiac catheterization Family History Family History Mother Family history of heart disease in male family member before age 55 Patient's mother is Social History Social History Social History: The patient smokes 1/2 ppd. He is and has 2 sons. 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 Patient denies any all alcohol marijuana or illicit drugs. His sons are his durable power molded goods spot picker for healthcare. Code status full code Smoking packs per day: 0.5 Smoking cigarettes per day: 10.0 Years smoked: 35 Smoking pack-years: 17.50 Smoking status: Former smoker Tobacco type: cigarettes Second hand tobacco smoke exposure: Yes Alcohol intake: never Drinks per week: 6 Substance use: never Substance use type: does not use Lack of Transportation: No Lack of Food: Sometimes True Current Housing: I Have Housing Concerned About Future Housing: No Difficulty Paying Gas/Electric Bills: No Difficulty Paying for Meds: No Currently Unemployed: YES Education: Associate Degree Difficulty w/ Childcare or Family Care: No Spiritual care concerns: No Mod Sed Physical Exam Physical Exam Pre Procedural Exam: Normal: Appearance, Eyes, Ears, Nose, Neck, Throat, Airway, Lungs, Heart Size, Heart Rate, Heart Rhythm, Neuro Exam, Abdomen, Liver, Extremities and Skin Hours since solid foods: 16 Hours since liquid intake: 16 Mallampati Classification: class II Internal Medicine - PN: Obj Da Vital Signs Vital Signs: Vital Signs - 24 hr 10/07/22 16:00 10/07/22 16:00 10/07/22 20:59 Temperature 97.1 F L Pulse Rate 68 70 66 Respiratory Rate 16 Blood Pressure 104/67 Pulse Oximet
--- NOTE | 2022-10-08 15:05 | PM.OP ---
Procedure Note - Brief Procedure Note - Brief Date of procedure: 10/08/22 Pre-op diagnosis: Cholelithiasis/Elevated LFTs/COVID 19 CP, elevated trop, cardiomyopathy Post-op diagnosis: Other ([place] coronaries) Procedure performed: conscious sedation left heart catheterization Surgeon: Jennifer Haywood MD Findings: normal coronary arteries Low BP
--- NOTE | 2022-10-08 15:10 | P.PCNCC_ITS ---
Cardiac Cath Procedure Note Date of procedure:: 10/08/22 Performing physician:: Jennifer Haywood MD Indication:: chest pain, elevated troponins Brief clinical history:: 52-year-old male admitted with epigastric and chest discomfort. Known cardiomyopathy. Has elevated troponins And an abnormal EKG. Also has cholelithiasis. cardiac catheterization is being performed to evaluate for suspected CAD. Procedure Procedure performed:: Conscious sedation Left heart catheterization Sedation/Medication given:: Conscious sedation: The patient has no known prior history of adverse affects of conscious sedation. Oropharynx was clear. The patient is deemed a good candidate for conscious sedation. Conscious sedation began at: 1425 Conscious sedation ended at: 1459 Total conscious sedation time: 34 minutes Medications: Versed 1 mg, fentanyl 50 mcg IV push The patient had continuous hemodynamic monitoring, and was also continuously monitored by: Evie Garza RN The patient tolerated conscious sedation well. Access site:: right radial Estimated blood loss:: 3 cc Procedure note:: Catheters: 5 [place] taper arterial sheath, 5 [place] Edna coronarycatheter Detailed procedure: After informed consent the patient brought to the aquatic laborer and the rate upper extremity was checked for good ulnar flow with the Josias's test which was normal. The right radial artery area was prepped and draped in the usual fashion. After conscious sedation and local anesthesia the right radial artery was punctured and cannulated with the arterial sheath, using the micropuncture technique and vascular ultrasound guidance. He was given verapamil 2.5 mg, nitroglycerin 200 mcg, and heparin 5000 units intra-arterially through the sheath. Selective Coronary angiography was performed with the coronary catheter in multiple projections. This catheter was advanced into the left ventricle for pressure measurements. No left ventriculogram was performed. The patient's blood pressure was low, in the 70s at times, and he was given 100 cc of saline as well as epinephrine 100 mcg IV push. The catheter was withdrawn over wire. The arterial sheath was removed and hemostasis was obtained using local pressure and a wrist band. The patient tolerated the procedure well with no complications. Estimated blood loss was negligible. Findings:: Pressures: LV 80/ 20 mmHg and aortic pressure 80/64 mmHg Left coronary artery: The left main Left anterior descending and circumflex vessels were widely patent and free of disease. Right coronary artery the dominant right coronary artery was free of disease. Conclusion:: CONCLUSIONS: Normal coronary arteries. Systemic hypotension Mildly elevated left ventricular end-diastolic pressure, 18 mmHg. RECOMMENDATIONS: Continued continue treatment of cardiomyopathy with guideline directed medical therapy, as blood pressure can tolerate. Continue evaluation and treatment for cholelithiasis
--- NOTE | 2022-10-08 15:25 | PM.IMPN ---
Progress Note: A&P Assessment and Plan (1) Cholelithiasis: Code(s): K80.20 - Calculus of gallbladder without cholecystitis without obstruction Status: Acute Assessment and Plan: ED-[facility] narrative: Patient presents emergency department from home for chest pain.? Patient states that chest pain began this evening around 7 PM.? The pain is located in the midsternal lower chest and upper abdomen described as sharp and stabbing in nature.? Nothing makes the pain better or worse.? Patient states that he was recently diagnosed with COVID-19.? Patient had been admitted to the hospital but had left AGAINST MEDICAL ADVICE he has a history of ischemic cardiomyopathy he denies any fevers or chills denies any shortness of breath.? Patient states he did have 1 episode of nausea and vomiting patient is known to me as patient was admitted on 10/02/2022 with complaint of shortness of breath patient was positive COVID-19 has history of severe cardiomyopathy and had been non compliant with his medication and follow-up with his loader engineer, however patient did not require any oxygen while in the hospital, patient was seen by Cardiology and resume guidelines therapy for his severe cardiomyopathy however patient decided to leave AMA, so he presents with complaint of right upper quadrant pain, CT scan abdomen showed cholelithiasis but no acute cholecystitis similarly was seen by General surgery service and suggested patient does not need any surgical intervention, patient remains clinically stable denies any chest pain shortness of breath, or palpitation, it does continue to complain of right upper quadrant pain, patient is not requiring any oxygen,, will consult loader engineer for severe cardiomyopathy and further recommendation to follow, will resume his home medication. 10/06/2022 interval history: today patient remains clinically stable denies any chest pain or shortness of breath, seen by Cardiology does not suspect patient is volume overloaded rather euvolemic, will continue the current regimen and will have PT OT evaluate the patient and further recommendation to follow. patient with ejection fraction of 20-25% will need LifeVest before discharge home. 10/07/2022: Present with chest pain shortness of breath/epigastric right upper quadrant area brain. Sharp stabbing nature. Positive for COVID-19 the not hypoxic supportive treatment Cholelithiasis on CT reviewed general surgery recommendation Elevated liver enzymes improving now suspect related to cardiomyopathy. CT with no abnormality in liver. Will check ultrasound right upper could relate to congestive hepatopathy initial chest x-ray with patchy diffuse opacities throughout the lungs consistent with atelectasis versus pneumonia versus pulmonary edema on 10/02/2022 follow-up chest x-ray with resolution of those findings CTA does report tree-in-bud abnormality in the dependent areas some lower lobes. On IV Zosyn. Which will be continued Cardiomyopathy worsened to 20-25% on repeat echo. Placed on Entresto Coreg and spironolactone. Monitor blood pressure Will lower spironolactone to 12.5 mg daily DVT prophylaxis Lovenox (2) Chronic combined systolic and diastolic CHF (congestive heart failure): Code(s): I50.42 - Chronic combined systolic (congestive) and diastolic (congestive) heart failure Status: Acute Assessment and Plan: patient with history severe cardiomyopathy with ejection fraction of 20-25% will resume patient's home meds, patient will be seen loader engineer and further recommendation to follow, and will need LifeVest before discharge home (3) COVID-19: Code(s): U07.1 - COVID-19 Status: Acute Assessment and Plan: patient remains clinically stable not requiring any oxygen, no treatment for COVID was started. Plan Present with chest pain shortness of breath/epigastric right upper quadrant area brain. Sharp stabbing nature. Positive for COVID-1
--- NOTE | 2022-10-08 19:42 | WPDGICN ---
Assessment and Plan Assessment and plan (1) Elevated LFTs: Code(s): R79.89 - Other specified abnormal findings of blood chemistry Status: Acute Assessment and Plan: This fits the picture of cholelithiasis with choledocholithiasis. Particularly with the elevated bilirubin, he probably has choledocholithiasis. He gets sporadic and no almost daily episodes of pain in the late evening accompanied by some nausea. These are in the substernal area and radiate somewhat towards the back (2) Chest pain: Code(s): R07.9 - Chest pain, unspecified Status: Acute Assessment and Plan: it appears that this is not cardiac pain at this time but more likely gastrointestinal. His pain is too abruption severe to be esophageal. (3) Cholelithiasis: Code(s): K80.20 - Calculus of gallbladder without cholecystitis without obstruction Status: Acute Assessment and Plan: He has been told recently by surgery that surgery would not be necessary. It does seem however that he will need ERCP for suspected common bile duct stones. I discussed with him the technique of ERCP the use of endoscopy use of sedation as well as explaining the risks, the possibility of pancreatitis or perforation or gastrointestinal bleeding secondary to the procedure. (4) Dilated cardiomyopathy: Code(s): I42.0 - Dilated cardiomyopathy Status: Acute Assessment and Plan: He states That his ejection fraction is about 25% cardiology has been consulted. ERCP will be done if they feel he can tolerate it. (5) COVID-19: Code(s): U07.1 - COVID-19 Status: Acute Assessment and Plan: He tested positive on his admission October 02. He has no symptoms GI Consult Note Consult date/time: 10/08/22 19:42 HPI: Jose Juan Rodriguez is a 52 year old male who initially presented on October 02 with chest pain in the lower chest and which are and somewhat penetrating. It lasted a couple of hours. He has had some episodes like this in the past. He then developed another episode 3 days ago. That also disappeared after few hours but recurred the next day. He seems to get this every evening around 11 or 12:00 p.[address].. He has had CT scan showing cholelithiasis. His symptoms certainly do sound like biliary colic. He had initially had an ALT of 180 but it has gone up to 441. Likewise his bilirubin which was 0.7 5 days ago is now up to 4.1. He has had no pruritus. He has noticed that his urine is darker. He has no past history of liver disease jaundice hepatitis or pancreatic disease. Does have cardiomyopathy. He wears a LifeVest. He states that his ejection fraction is in the mid 20s. Review of Systems Review of Systems: All systems reviewed & are unremarkable except as noted in HPI and below PMFSH Past Medical History Medical History (Updated 10/07/22 @ 14:50 by Jennifer Haywood MD) Chronic combined systolic and diastolic CHF (congestive heart failure) Dilated cardiomyopathy Hypertension Surgical History Surgical History History of carpal tunnel release Hx of cardiac catheterization Family History Family History Mother Family history of heart disease in male family member before age 55 Patient's mother is Social History Social History Social History: The patient smokes 1/2 ppd. He is and has 2 sons. 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 Patient denies any all alcohol marijuana or illicit drugs. His sons are his durable power criminal attorney for healthcare. Code status full code Smoking packs per day: 0.5 Smoking cigarettes per day: 10.0 Years smoked: 35 Smoking pack-years: 17.50 Smoking status: Former smoker Tobacco type: cigarettes Second hand tobacco smoke exposure: Yes Alcoh
[2022-10-08] MEDS: SACUBITRIL/VALSARTAN 12-13 MG TABLET 1 TAB PO (21:32)
[2022-10-08] MEDS: carvediloL 3.125 MG TABLET PO (21:32)
[2022-10-09] VITALS: PULSE 73
[2022-10-09 04:00] VITALS: PULSE 73
[2022-10-09 04:51] VITALS: BP 96/62; PULSE 72; RESP 18; TEMP 36.2; O2SAT 92
[2022-10-09 07:09] LABS: Hematocrit 49.6 % (42.0-52.0); Hemoglobin 16.4 g/dL (14.0-18.0); Mean Corpuscular HGB Conc 33.1 g/dl (32-36); Mean Corpuscular Hemoglobin 28.9 pg (26-34); Mean Corpuscular Volume 87.3 fl (80-100); Mean Platelet Volume 9.5 fl (7.4-10.4); Platelet Count Result 263 k/mm3 (150-375); Red Blood Count 5.68 M/mm3 (4.6-6.20); Red Cell Distribution Width 13.2 % (11.5-14.5); White Blood Count 8.9 K/mm3 (4.5-10.0)
[2022-10-09 07:25] LABS: Alanine Aminotransferase 308 U/L (6-50); Albumin Level 3.8 g/dL (3.5-5.1); Alkaline Phosphatase 149 U/L (38-126); Anion Gap 6 mmol/L (8-16); Aspartate Amino Transferase 134 U/L (17-59); Bilirubin,Total 1.2 mg/dL (0.2-1.3); Blood Urea Nitrogen 16 mg/dL (9-20); Calcium 8.3 mg/dL (8.4-10.2); Carbon Dioxide 25 mmol/L (22-30); Chloride 99 mmol/L (98-107); Estimated CRCL calculation 64 ml/min; Estimated Glomerular Filt Rate > 60; Glucose 104 mg/dL (65-110); Lipase 506 U/L (23-300); Magnesium 2.3 mg/dL (1.6-2.3); Sodium 130 mmol/L (137-145)
[2022-10-09 09:40] VITALS: PULSE 72
[2022-10-09] MEDS: carvediloL 3.125 MG TABLET PO (09:40)
[2022-10-09] MEDS: SPIRONOLACTONE 12.5 MG TABLET PO (09:41)
--- NOTE | 2022-10-09 10:31 | PM.PNCARD ---
Progress Note: A&P Assessment and Plan (1) Dilated cardiomyopathy: Code(s): I42.0 - Dilated cardiomyopathy Status: Acute Assessment and Plan: Dilated cardiomyopathy since 2016, unfortunately noncompliant with follow-up. EF has again declined to 20-25%. continue medical therapy; spironolactone has been decreased because of low blood pressure. Will reduce the carvedilol dose due to bradycardia and hypotension, as well as the Entresto dose. office follow-up (2) Chronic combined systolic and diastolic CHF (congestive heart failure): Code(s): I50.42 - Chronic combined systolic (congestive) and diastolic (congestive) heart failure Status: Acute Assessment and Plan: On guideline directed medical therapy with Entresto, spironolactone and carvedilol May add Farxiga as well at a later date. Looks euvolemic on exam today. (3) Shortness of breath: Code(s): R06.02 - Shortness of breath Status: Acute Assessment and Plan: shortness of breath due to acute COVID infection, and chronic CHF. Improved. (4) Chest pain: Code(s): R07.9 - Chest pain, unspecified Status: Acute Assessment and Plan: I suspect this is due to his cholelithiasis but it has been several years since he was evaluated for CAD. no obstructive CAD seen on [facility] yesterday (5) At risk for sudden cardiac : Code(s): Z91.89 - Other specified personal risk factors, not elsewhere classified Status: Acute Assessment and Plan: patient's ejection fraction is 20-25% and he is at risk of sudden cardiac . Counseled patient about his risk. Counseled patient about a LifeVest for primary prevention. Patient wore LifeVest for several months in the past. He wants to pursue this and states he will be compliant with wearing the life vest. LifeVest in place. (6) Cholelithiasis: Code(s): K80.20 - Calculus of gallbladder without cholecystitis without obstruction Status: Acute Assessment and Plan: planning on conservative management. Has elevated LFTs, unclear if due to cholelithiasis or hepatic congestion from CHF. A little worse today, but no high WBC Tx per hospitalists and surgeon (7) COVID-19: Code(s): U07.1 - COVID-19 Status: Acute Assessment and Plan: Treatment per hospitalist . Not requiring oxygen. Subjective Date/time seen: 10/09/22 10:32 Cardiology follow up for cardiomyopathy He feels okay this morning, only complaint is some fatigue. No shortness of breath, chest pain, palpitations, edema. Review of Systems Constitutional: Constitutional: Denies fever(s) Eyes: Eyes: Reports no additional eye complaints ENT: Denies dysphagia and Denies epistaxis Cardiovascular: Cardiovascular: Reports chest pain, Denies pedal edema, Denies lightheadedness, Reports dyspnea and Reports dyspnea on exertion Respiratory: Respiratory: Denies chest congestion, Reports cough, Reports dyspnea and Reports dyspnea on exertion Gastrointestinal: Gastrointestinal: Reports abdominal pain, Denies hematochezia and Denies dysphagia Genitourinary: Genitourinary: Denies hematuria Musculoskeletal: Musculoskeletal: Reports no additional musculoskeletal complaints Integumentary/Breasts: Skin/Breast: Reports system reviewed and no additional complaints, except as docu Neurologic: Reports system reviewed and no additional complaints, except as documented, Denies behavioral changes and Denies confusion Psychiatric: Psychiatric: Denies behavioral changes and Denies confusion Exam Const: General: cooperative, healthy appearing, well developed, alert, acute distress, uncomfortable ( Sleepy) and well nourished; No confusion Nutritional Appearance: well nourished Orientation/consciousness: oriented to person, patient oriented x3 and No confusion Other: sleeping after some recent morphine, easily arousable HENMT: H
--- NOTE | 2022-10-09 18:45 | PM.DS ---
DS: Admitting Diagnosis Discharge Date 10/09/22 Admitting Diagnosis Chest pain/epigastric DS: Discharge Diagnosis Discharge Diagnosis (1) Cholelithiasis: Code(s): K80.20 - Calculus of gallbladder without cholecystitis without obstruction Status: Acute (2) Chronic combined systolic and diastolic CHF (congestive heart failure): Code(s): I50.42 - Chronic combined systolic (congestive) and diastolic (congestive) heart failure Status: Acute (3) COVID-19: Code(s): U07.1 - COVID-19 Status: Acute DS: Summary Hospital Course Hospital Course: Patient presents emergency department from home for chest pain.? Patient states that chest pain began this evening around 7 PM.? The pain is located in the midsternal lower chest and upper abdomen described as sharp and stabbing in nature.? Nothing makes the pain better or worse.? Patient states that he was recently diagnosed with COVID-19.? Patient had been admitted to the hospital but had left AGAINST MEDICAL ADVICE he has a history of ischemic cardiomyopathy he denies any fevers or chills denies any shortness of breath.? Patient states he did have 1 episode of nausea and vomiting ?patient is known to me as patient was admitted on 10/02/2022? with complaint of shortness of breath patient was positive COVID-19 has history of severe cardiomyopathy and had been non compliant with his medication and follow-up with his beauty culturist apprentice, however patient did not require any oxygen while in the hospital, patient was seen by Cardiology and resume guidelines therapy for his severe cardiomyopathy however patient decided to leave AMA, so he presents with complaint of right upper quadrant pain,? CT scan abdomen showed cholelithiasis but no acute cholecystitis similarly was seen by General surgery service and suggested patient does not need any surgical intervention,? patient remains clinically stable denies any chest pain shortness of breath, or palpitation,? it does continue to complain of right upper quadrant pain, patient is not requiring any oxygen,, will consult beauty culturist apprentice for severe cardiomyopathy and further recommendation to follow, will resume his home medication. # Epigastric pain/right upper quadrant pain: Patient presented with chest pain shortness of breath/epigastric right upper quadrant area brain.? Sharp stabbing nature.? Positive for COVID-19 however not hypoxic and hence only continue supportive treatment # Cholelithiasis on CT reviewed general surgery recommendation # Elevated liver enzymes improving initially suspected to be related to cardiomyopathy.? CT with no abnormality in liver.? RUQ US with mild gb wall thickening. still worsening. Plan to get MRI MRCP to further evaluate. gi consulted and suggested ERCP. The trend highly suggestive of possible choledocholithiasis. He was ruled out for possible ACS with cardiac catheterization which was performed on 10/08/2022 which showed normal coronaries. right upper abdominal pain could relate to congestive hepatopathy initial chest x-ray with patchy diffuse opacities throughout the lungs consistent with atelectasis versus pneumonia versus pulmonary edema on 10/02/2022 follow-up chest x-ray with resolution of those findings CTA does report tree-in-bud abnormality in the dependent areas some lower lobes.? He was treated with IV Zosyn.? Which will be continued this would also help with choledocholithiasis. # Cardiomyopathy worsened to 20-25% on repeat echo.? Placed on Entresto Coreg and spironolactone.? Monitor blood pressure Spironolactone dose lowered to 12.5 mg daily duet lowish bp. Discussed with LifeVest and was ordered and fitted during the hospital stay # chest pain: rule out ACS. mild troponin elevation noted. discussed with cardiology. went for cardiac cath to rule out ischemia. Catheterization came back negative for coronary artery disease DVT prophylaxis Lovenox Patient was planned for MRCP and further GI evaluation. As his symptoms
== END 2022-10-09 12:24 | disposition left against medical advice (07) ==
LOC: ANHED 05:43 → ANH3MEDSUR 07:42
PROVIDERS: Family Medicine; Internal Medicine Cardiovascular Disease; Admitting Provider Internal Medicine; Emergency Provider Emergency Medicine; Visit Provider Internal Medicine
PROC: 4A023N7 Measurement of Cardiac Sampling and Pressure, Left Heart, Percutaneous Approach (ICD-10-PCS; CPT 93452; principal; 2022-10-08 13:00)
DX: K80.20 Calculus of gallbladder without cholecystitis without obstruction (principal); U07.1 COVID-19; I42.0 Dilated cardiomyopathy; I50.42 Chronic combined systolic (congestive) and diastolic (congestive) heart failure; I11.0 Hypertensive heart disease with heart failure; F17.210 Nicotine dependence, cigarettes, uncomplicated; R77.8 Other specified abnormalities of plasma proteins; Z91.198 Patient's noncompliance with other medical treatment and regimen for other reason; Z91.14 Patient's other noncompliance with medication regimen; Z91.89 Other specified personal risk factors, not elsewhere classified
CPT/HCPCS: 36415; 71045; 71275; 74177; 76705; 80053; 83690; 83735; 83880; 84484; 85025; 85027; 85380; 85610; 85730; 87636; 93005; 93458; 96365; 96366; 96372; 96375; 96376; 99285; A9270; C1769; C1887; C1894; G0378; G0379; J1644; J1650; J2250; J2270; J2370; J2543; J3010; J7040; Q9967

== ENCOUNTER 2023-07-04 14:23 | Emergency (ER) | payer OTHER, SELFPAY ==
--- NOTE | ~2023-07-04 | XR_ITS ---
EXAM: XR finger 4th RT min 2V DATE: 07/04/2023 16:33 HISTORY: nailbed laceration, trauma; window fell onto Rt 4th finger . COMPARISON: None available. FINDINGS: Normal mineralization. No fracture or dislocation. No lytic or blastic lesion. Joint space s are maintained. No erosion or periosteal change. Irregularity of the fourth nail/nailbed. IMPRESSION: No acute osseous finding in the right fourth finger. Reviewed, dictated and finalized at location K.
[2023-07-04 14:24] VITALS: BP 122/77; PULSE 87; RESP 20; TEMP 36.8; O2SAT 99
--- NOTE | 2023-07-04 16:26 | ED.WOUNDLAC ---
HPI - Wound/Laceration General Chief Complaint: Wound/Laceration Stated Complaint: finger injury Time Seen by Provider: 07/04/23 16:14 History of Present Illness HPI narrative: 53-year-old male for evaluation for a nailbed laceration to his right fourth finger that occurred 5 hours prior to arrival. Patient states he was putting a window and when accidentally fell and smashed his finger. Bleeding controlled. He is not on anticoagulants. Denies paresthesias, difficulty with range of motion. Last tetanus unknown. Related Data Allergies Allergy/AdvReac Type Severity Reaction Status Date / Time No Known Allergies Allergy Unknown Verified 10/05/22 15:47 Review of Systems Review of Systems: CONSTITUTIONAL: Denies fever, chills EYES: Denies visual changes, redness, or discharge. ENT: Denies rhinorrhea, congestion, sore throat, or otalgia. CARDIOVASCULAR: Denies chest pain, palpitations, or edema. RESPIRATORY: Denies cough or dyspnea. GASTROINTESTINAL: Denies abdominal pain, nausea, vomiting, or diarrhea. GENITOURINARY: Denies dysuria or hematuria. SKIN: See HPI MUSCULOSKELETAL: Denies back pain, joint pain, or myalgia. NEUROLOGIC: Denies headache, numbness, dizziness, or weakness. PSYCHIATRIC: Denies anxiety or depression. [facility] Past Medical History Medical History Chronic combined systolic and diastolic CHF (congestive heart failure) Dilated cardiomyopathy Hypertension Surgical History Surgical History History of carpal tunnel release Hx of cardiac catheterization Family History Family History Mother Family history of heart disease in male family member before age 55 Patient's mother is Social History Social History Social History: The patient smokes 1/2 ppd. He is and has 2 sons. 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 Patient denies any all alcohol marijuana or illicit drugs. His sons are his durable power disability attorney for healthcare. Code status full code Smoking packs per day: 0.5 Smoking cigarettes per day: 10.0 Years smoked: 35 Smoking pack-years: 17.50 Smoking status: Former smoker Tobacco type: cigarettes Second hand tobacco smoke exposure: Yes Alcohol intake: never Drinks per week: 6 Substance use: never Substance use type: does not use Lack of Transportation: No Lack of Food: Sometimes True Current Housing: I Have Housing Concerned About Future Housing: No Difficulty Paying Gas/Electric Bills: No Difficulty Paying for Meds: No Currently Unemployed: YES Education: Associate Degree Difficulty w/ Childcare or Family Care: No Spiritual care concerns: No Exam Narrative: GENERAL: Well-appearing, in no acute distress. HEAD: Normocephalic NECK: Supple. CHEST: No respiratory distress. Clear to auscultation, no adventitious breath sounds. HEART: Regular rate and rhythm. No murmur heard. Normal peripheral pulses. EXTREMITIES: Normal range of motion. No edema. SKIN: 1.5 cm laceration over the fourth proximal nail with complete disruption of the nail. There is a small amount approximately 1 to 2 mm of nail left remaining in the proximal nail fold. No deep structures or foreign bodies visualized. Cap refill less than 2. Sensation intact. Full range of motion of fingers. Radial pulse 2+. NEURO: No focal deficits. Alert and oriented x3. PSYCH: Normal mood and affect. Course Vital Signs Vital signs: Vital Signs Temperature 98.2 F 07/04/23 14:24 Pulse Rate 87 07/04/23 14:24 Respiratory Rate 20 07/04/23 14:24 Blood Pressure 122/77 07/04/23 14:24 Pulse Oximetry 99 07/04/23 14:24 Oxygen Delivery Room Air 07/04/23 14:24 Temperature 98.2 F 07/04/23 14:24 Pulse Rate
[2023-07-04] MEDS: TETANUS,DIPHTHERIA,AC PERTUSSIS ADULT (0.5 ML) BOOSTRIX IM (16:36)
[2023-07-04] MEDS: ACETAMINOPHEN 500 MG TABLET 1000 MG PO (16:36)
[2023-07-04] MEDS: IBUPROFEN 600 MG TABLET PO (16:37)
[2023-07-04] MEDS: LIDOCAINE HCL 1% LOCAL INJ 10 ML VIAL INFILTRATE (16:58)
== END 2023-07-04 17:40 | disposition left against medical advice (07) ==
PROVIDERS: Emergency Provider Physician Assistant
DX: S61.314A Laceration without foreign body of right ring finger with damage to nail, initial encounter (principal); Z87.891 Personal history of nicotine dependence; I11.0 Hypertensive heart disease with heart failure; I50.9 Heart failure, unspecified; W20.8XXA Other cause of strike by thrown, projected or falling object, initial encounter; Z23 Encounter for immunization
CPT/HCPCS: 73140; 90471; 90715; 99283; A9270

== ENCOUNTER 2023-07-16 11:19 | Outpatient (CLI) | payer OTHER, SELFPAY ==
[2023-07-16 11:50] LABS: Basophils Absolute Auto 0.1 K/mm3 (0.0-0.1); Basophils Percent Auto 0.8 % (0.2-1.2); Eosinophils Absolute Auto 0.4 K/mm3 (0-0.3); Eosinophils Percent Auto 3.8 % (0-4.4); Hemoglobin 15.4 g/dL (14.0-18.0); Lymphocytes Absolute Auto 2.25 K/mm3 (0.9-3.2); Lymphocytes Percent Auto 22.3 % (18.3-44.2); Mean Corpuscular HGB Conc 34.2 g/dl (32-36); Mean Corpuscular Hemoglobin 29.9 pg (26-34); Mean Corpuscular Volume 87.4 fl (80-100); Mean Platelet Volume 8.6 fl (7.4-10.4); Monocytes Absolute Auto 0.7 K/mm3 (0.1-0.6); Monocytes Percent Auto 7.3 % (2.6-8.5); Neutrophils Absolute Auto 6.6 K/mm3 (1.3-6.7); Neutrophils Percent Auto 64.8 % (45.5-73.1); Platelet Count Result 252 k/mm3 (150-375); Red Blood Count 5.15 M/mm3 (4.6-6.20); Red Cell Distribution Width 12.3 % (11.5-14.5); White Blood Count 10.1 K/mm3 (4.5-10.0)
[2023-07-16 12:10] LABS: Anion Gap 6 mmol/L (8-16); Blood Urea Nitrogen 18 mg/dL (9-20); Calcium 8.8 mg/dL (8.4-10.2); Carbon Dioxide 28 mmol/L (22-30); Chloride 99 mmol/L (98-107); Estimated Glomerular Filt Rate > 60; Glucose 100 mg/dL (65-110); Sodium 133 mmol/L (137-145)
== END 2023-07-16 11:20 | disposition home or self-care (01) ==
DX: I42.8 Other cardiomyopathies (principal); Z01.812 Encounter for preprocedural laboratory examination
CPT/HCPCS: 36415; 80048; 85025

== ENCOUNTER 2024-08-05 09:29 | Emergency (ER) | payer OTHER, SELFPAY ==
--- NOTE | ~2024-08-05 | XR_ITS ---
EXAMINATION: XR chest 2V DATE: 08/05/2024 09:49 INDICATION: Chest pain. TECHNIQUE: Frontal and lateral views of the chest were obtained. COMPARISON: Chest single view 10/05/2022 FINDINGS: There is no pneumonia, pleural effusion, or pneumothorax. The heart size is normal. There i s a right subclavian pacer/defibrillator with lead in right ventricle. IMPRESSION: 1. No acute cardiopulmonary disease. Reviewed, dictated and finalized at location A.
--- NOTE | 2024-08-05 09:30 | ECG_ITS ---
Test Date: 2024-08-05 09:35:38 Measurements Intervals [place] Rate: 80 P: 38 CO: 174 QRS: -61 QRSD: 91 T: 20 QT: 375 QTc: 434 Interpretive Statements SINUS RHYTHM Poor R wave progression INFERIOR MYOCARDIAL INFARCTION , PROBABLY OLD [40+ ms Q WAVE AND/OR ST/T ABNORMALITY IN II/aVF] Electronically Signed On 08-05-2024 09:36:34 CDT by Boubacar Otto M.D.
[2024-08-05 09:34] VITALS: BP 172/101; PULSE 85; RESP 20; TEMP 36.2; O2SAT 100
[2024-08-05 09:49] LABS: Basophils Absolute Auto 0.1 K/mm3 (0.0-0.1); Basophils Percent Auto 0.7 % (0.2-1.2); Eosinophils Absolute Auto 0.4 K/mm3 (0-0.3); Eosinophils Percent Auto 4.5 % (0-4.4); Hematocrit 45.9 % (42.0-52.0); Hemoglobin 15.9 g/dL (14.0-18.0); Immature Granulocyte Absolute 0.07 K/mm3 (0.00-0.031); Immature Granulocyte Percent A 0.8 % (0-0.5); Lymphocytes Absolute Auto 2.09 K/mm3 (0.9-3.2); Lymphocytes Percent Auto 23.9 % (18.3-44.2); Mean Corpuscular HGB Conc 34.6 g/dl (32-36); Mean Corpuscular Hemoglobin 30.3 pg (26-34); Mean Corpuscular Volume 87.4 fl (80-100); Mean Platelet Volume 8.6 fl (7.4-10.4); Monocytes Absolute Auto 0.7 K/mm3 (0.1-0.6); Monocytes Percent Auto 7.7 % (2.6-8.5); Neutrophils Absolute Auto 5.5 K/mm3 (1.3-6.7); Neutrophils Percent Auto 62.4 % (45.5-73.1); Platelet Count Result 222 k/mm3 (150-375); Red Blood Count 5.25 M/mm3 (4.6-6.20); Red Cell Distribution Width 12.6 % (11.5-14.5); White Blood Count 8.7 K/mm3 (4.5-10.0)
[2024-08-05 10:04] LABS: INR 0.9; Partial Thromboplastin Time 26.8 Seconds (22.3-36.8); Prothrombin Time 12.7 Seconds (11.1-14.7)
[2024-08-05 10:49] LABS: Alanine Aminotransferase 38 U/L (6-50); Albumin Level 4.1 g/dL (3.5-5.1); Alkaline Phosphatase 52 U/L (38-126); Anion Gap 5 mmol/L (4-12); Aspartate Amino Transferase 35 U/L (17-59); Bilirubin,Total 0.4 mg/dL (0.2-1.3); Blood Urea Nitrogen 15 mg/dL (9-20); Carbon Dioxide 29 mmol/L (22-30); Chloride 101 mmol/L (98-107); Estimated CRCL calculation 82 ml/min; Estimated Glomerular Filt Rate > 60; Glucose 112 mg/dL (65-110); Lipase 108 U/L (23-300); Sodium 135 mmol/L (137-145)
[2024-08-05 11:01] LABS: Troponin I < 0.012 ng/mL (0.000-0.034)
--- NOTE | 2024-08-05 11:09 | PC.NURSE ---
patient called (attempt x1) for room assignment without answer at this time.
== END 2024-08-05 11:30 | disposition left against medical advice (07) ==
LOC: ANHED 11:19
PROVIDERS: Emergency Provider Emergency Medicine
DX: R53.1 Weakness (principal)
CPT/HCPCS: 36415; 71046; 80053; 83690; 84484; 85025; 85610; 85730; 93005; 99199

== ENCOUNTER 2024-10-09 11:36 | Emergency (ER) | payer OTHER, SELFPAY ==
--- NOTE | ~2024-10-09 | XR_ITS ---
EXAMINATION: XR chest 2V DATE: 10/09/2024 12:48 INDICATION: Chest pain TECHNIQUE: PA and lateral views of the chest were obtained. COMPARISON: Chest radiograph dated 08/05/2024 FINDINGS: The lungs remain clear with no focal airspace opacities, pulmonary edema, pleural effusion or pneumot horax. The cardiomediastinal silhouette is normal. Single lead cardiac pacemaker/defibrillator with l ead tip in the right ventricle. IMPRESSION: 1. No acute cardiopulmonary disease. Reviewed, dictated and finalized at location A. GOLF CART REPAIRER
[2024-10-09 11:30] VITALS: BP 166/109; PULSE 71; RESP 17; TEMP 36.5; O2SAT 99
--- NOTE | 2024-10-09 11:46 | ECG_ITS ---
Test Date: 2024-10-09 11:41:04 Measurements Intervals [place] Rate: 66 P: 35 WI: 165 QRS: 118 QRSD: 94 T: 89 QT: 405 QTc: 425 Interpretive Statements SINUS RHYTHM INCOMPLETE RIGHT BUNDLE BRANCH BLOCK [90+ ms QRS DURATION, TERMINAL R IN V1/V2, 40+ ms S IN I/aVL/V4/V5/V6] RIGHT VENTRICULAR HYPERTROPHY [SOME/ALL OF: PROMINENT R IN V1, LATE TRANSITION, RAD, CINDY, SSS] LATERAL MYOCARDIAL INFARCTION , OF INDETERMINATE AGE [40+ ms Q WAVE AND/OR ST/T ABNORMALITY IN I/aVL/V5/V6] Electronically Signed On 10-09-2024 13:12:21 REMEDIATION TECHNICIAN by Trevor Block M.D.
[2024-10-09 11:58] LABS: Basophils Absolute Auto 0.1 K/mm3 (0.0-0.1); Basophils Percent Auto 0.5 % (0.2-1.2); Eosinophils Absolute Auto 0.2 K/mm3 (0-0.3); Eosinophils Percent Auto 1.3 % (0-4.4); Hematocrit 46.8 % (42.0-52.0); Hemoglobin 15.7 g/dL (14.0-18.0); Immature Granulocyte Absolute 0.06 K/mm3 (0.00-0.031); Immature Granulocyte Percent A 0.5 % (0-0.5); Lymphocytes Absolute Auto 1.46 K/mm3 (0.9-3.2); Lymphocytes Percent Auto 12.1 % (18.3-44.2); Mean Corpuscular HGB Conc 33.5 g/dl (32-36); Mean Corpuscular Hemoglobin 29.3 pg (26-34); Mean Corpuscular Volume 87.3 fl (80-100); Mean Platelet Volume 8.8 fl (7.4-10.4); Monocytes Absolute Auto 0.8 K/mm3 (0.1-0.6); Monocytes Percent Auto 6.6 % (2.6-8.5); Neutrophils Absolute Auto 9.5 K/mm3 (1.3-6.7); Platelet Count Result 210 k/mm3 (150-375); Red Blood Count 5.36 M/mm3 (4.6-6.20); Red Cell Distribution Width 12.2 % (11.5-14.5); White Blood Count 12.1 K/mm3 (4.5-10.0)
[2024-10-09 12:12] LABS: Prothrombin Time 13.2 Seconds (11.1-14.7)
[2024-10-09 12:13] LABS: Alanine Aminotransferase 32 U/L (6-50); Albumin Level 4.1 g/dL (3.5-5.1); Alkaline Phosphatase 58 U/L (38-126); Anion Gap 1 mmol/L (4-12); Aspartate Amino Transferase 29 U/L (17-59); Bilirubin,Total 0.7 mg/dL (0.2-1.3); Blood Urea Nitrogen 13 mg/dL (9-20); Calcium 9.1 mg/dL (8.4-10.2); Carbon Dioxide 28 mmol/L (22-30); Chloride 104 mmol/L (98-107); Estimated CRCL calculation 92 ml/min; Estimated Glomerular Filt Rate > 60; Glucose 120 mg/dL (65-110); Lipase 72 U/L (23-300); Partial Thromboplastin Time 27.7 Seconds (22.3-36.8); Sodium 133 mmol/L (137-145)
[2024-10-09 12:19] LABS: Troponin I < 0.012 ng/mL (0.000-0.034)
--- NOTE | 2024-10-09 13:04 | ED.CHESTPAIN ---
HPI - Chest Pain General Chief Complaint: Chest Pain Stated Complaint: CP since yest Time Seen by Provider: 10/09/24 12:04 History of Present Illness HPI narrative: Patient is a 54-year-old male who presents the ER with epigastric pain and chest pain. Burning. Associated with vomiting and poor taste in the throat. Has history of nonischemic cardiomyopathy. Has not taken his medication for the last month because he did not get a refill. Patient was in [place] [facility]. No diaphoresis. No exertional component. Reports he has an ejection fraction of 60%. He sees Dr. Oakes. Related Data Allergies Allergy/AdvReac Type Severity Reaction Status Date / Time No Known Allergies Allergy Unknown Verified 10/05/22 15:47 Review of Systems Review of Systems: All systems reviewed & are unremarkable except as noted in HPI and below Constitutional: Constitutional: Reports no additional constitutional complaints Cardiovascular: Cardiovascular: Reports no additional cardiovascular complaints Respiratory: Respiratory: Reports no additional respiratory complaints Gastrointestinal: Gastrointestinal: Reports no additional gastrointestinal complaints Musculoskeletal: Musculoskeletal: Reports no additional musculoskeletal complaints [facility] Past Medical History Medical History Chronic combined systolic and diastolic CHF (congestive heart failure) Dilated cardiomyopathy Hypertension Surgical History Surgical History History of carpal tunnel release Hx of cardiac catheterization Family History Family History Mother Family history of heart disease in male family member before age 55 Patient's mother is Social History Social History Social History: The patient smokes 1/2 ppd. He is and has 2 sons. 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 Patient denies any all alcohol marijuana or illicit drugs. His sons are his durable power real estate attorney for healthcare. Code status full code Smoking packs per day: 0.5 Smoking cigarettes per day: 10.0 Years smoked: 35 Smoking pack-years: 17.50 Smoking status: Former smoker Tobacco type: cigarettes Second hand tobacco smoke exposure: Yes Alcohol intake: never Drinks per week: 6 Substance use: never Substance use type: does not use Lack of Transportation: No Lack of Food: Sometimes True Current Housing: I Have Housing Concerned About Future Housing: No Difficulty Paying Gas/Electric Bills: No Difficulty Paying for Meds: No Currently Unemployed: YES Education: Associate Degree Difficulty w/ Childcare or Family Care: No Spiritual care concerns: No Exam Narrative: GENERAL: Well-appearing, well-nourished, and in no acute distress. HEAD: Normocephalic, atraumatic. ENT: Mucous membranes moist. CHEST: Clear to auscultation. No respiratory distress. HEART: Regular rate and rhythm. Normal peripheral pulses. ABDOMEN: Soft, nontender, nondistended. EXTREMITIES: Normal range of motion. No edema. SKIN: Warm, dry, no rash. NEURO: Alert and oriented x3. PSYCH: Normal mood and affect. Course Course Emergency Course: Patient was resting comfortably. He stood up and walked out ER telling his nurse the by. He gave no other complaints or rationale for his departure. Vital Signs Vital signs: Vital Signs Temperature 97.7 F 10/09/24 11:30 Pulse Rate 71 10/09/24 11:30 Respiratory Rate 17 10/09/24 11:30 Blood Pressure 166/109 H 10/09/24 11:30 Pulse Oximetry 99 10/09/24 11:30 Oxygen Delivery Room Air 10/09/24 11:30 Temperature 97.7 F 10/09/24 11:30 Pulse Rate 80 10/09/24 13:30 Respiratory Rate 20 10/09/24 13:30 Blood Pressure 175/101 H 10/09/24 13:30 Pulse Oximetry 97 10/09/24 13:30 Oxygen Delivery Room Air 10/09/24 11:30 MDM - Chest Pain Lab Data 10/09/24 11:48 10/09/24 11:48 Labs: Lab Results 10/09/24 Range/Units 11:48 WBC 12.1 H (4.5-10.0) K/mm3 RBC 5.36 (4.6-6.20) M/mm3 Hgb 15.7 (14.0-18.0) g/dL Hct 46.8 (42.0-52.0) % MCV 87.3 (80-100) fl MCH 29.3 (26-34) pg MCHC 33.5 (32-36) g/dl RDW 12.2 (11.5-14.5) % Plt Count 210 (150-375) k/mm3 MPV 8.8 (7.4-10.4) fl Immature Gran % (Auto) 0.5 (0-0.5) % Neut % (Auto) 79.0 H (45.5-73.1) % Lymph % (Auto) 12.1 L (18.3-44.2) % [place] % (Auto) 6.6 (2.6-8.5) % Eos % (Auto) 1.3 (0-4.4) % Baso % (Auto) 0.5 (0.2-1.2) % Lymph # (Auto) 1.46 (0.9-3.2) K/mm3 [place] # (Auto) 0.8 H (0.1-0.6) K/mm3 Eos # (Auto) 0.2 (0-0.3) K/mm3 Baso # (Auto) 0.1 (0.0-0.1) K/mm3 Abs Immat Gran (auto) 0.06 H (0.00-0.031) K/mm3 Absolute Neuts (auto) 9.5 H (1.3-6.7) K/mm3 Absolute Nucleated RBC 0.000 (0.0-0.012) K/mm3 Nucleated RBC % 0.0 (0.0-0.2) % PT 13.2 (11.1-14.7) Seconds INR 1.0 APTT 27.7 (22.3-36.8) Seconds Sodium 133 L (137-145) mmol/L Potassium 4.0 (3.4-5.0) mmol/L Chloride 104 (98-107) mmol/L Carbon Dioxide 28 (22-30) mmol/L Anion Gap 1 L (4-12) mmol/L BUN 13 (9-20) mg/dL Creatinine 0.80 (0.7-1.3) mg/dL Estim Creat Clear Calc 92 ml/min Estimated GFR > 60 (59 - ) Glucose 120 H (65-110) mg/dL Calcium 9.1 (8.4-10.2) mg/dL Total Bilirubin 0.7 (0.2-1.3) mg/dL AST 29 (17-59) U/L ALT 32 (6-50) U/L Alkaline Phosphatase 58 (38-126) U/L Troponin I < 0.012 (0.000-0.034) ng/mL Total Protein 7.0 (6.3-8.2) g/dL Albumin 4.1 (3.5-5.1) g/dL Lipase 72 (23-300) U/L Imaging Data Radiologist's impression: ITS Impressions Chest X-Ray 10/09/24 12:51 IMPRESSION: 1. No acute cardiopulmonary disease. ECG Data EKG #1: ECG completion date: 10/09/24 ECG completion time: 11:41 EKG Interpretation: normal rate (66), sinus rhythm, RBBB (Incomplete), normal QT and right axis Discharge Plan Discharge Clinical Impression: Chest pain Patient Disposition: Elopement After Seen by Prov Condition: Stable Patient Language: Tunisian Prescriptions: No Action carvedilol [Coreg] 6.25 mg Tablet 6.25 mg PO Q12HR Qty: 60 0RF spironolactone 25 mg Tablet 25 mg PO QAM Qty: 30 0RF Entresto 24-26 mg Tablet 1 tab PO Q12HR Qty: 60 0RF Follow-up/Referrals: UNKNOWN,DOCTOR [Primary Care Provider] -
[2024-10-09 13:30] VITALS: BP 175/101; PULSE 80; RESP 20; O2SAT 97
--- NOTE | 2024-10-09 13:49 | PC.NURSE ---
Patient removed his own IV and ambulated out of department. This RN attempted to stop patient to speak with him and he refused to speak to me. Patient A&Ox4 and able to ambulate out of department with steady gate
== END 2024-10-09 15:35 | disposition left against medical advice (07) ==
PROVIDERS: Emergency Medicine; Emergency Provider Emergency Medicine
DX: R07.9 Chest pain, unspecified (principal); I50.42 Chronic combined systolic (congestive) and diastolic (congestive) heart failure; I42.0 Dilated cardiomyopathy; F17.210 Nicotine dependence, cigarettes, uncomplicated; Z79.899 Other long term (current) drug therapy; I45.10 Unspecified right bundle-branch block; I51.7 Cardiomegaly; R94.31 Abnormal electrocardiogram [ECG] [EKG]
CPT/HCPCS: 36415; 71046; 80053; 83690; 84484; 85025; 85610; 85730; 93005; 99284

== ENCOUNTER 2025-01-22 23:37 | Inpatient (IN) | payer OTHER, SELFPAY ==
--- NOTE | ~2025-01-22 | CT_ITS ---
Clinical Indication: Chest pain, epigastric pain CT Scan of the Chest, Abdomen, and Pelvis with Contrast: Technique: Contiguous sections were acquired throughout the chest, abdomen, and pelvis after intraven ous administration of 100 cc of Omnipaque 350. Dose reduction technique was used on this scan by uti lizing automated exposure control and iterative reconstruction technique. The dose-length product (DL P) was 757.34 mGy-cm. Comparison: 10/05/2022 Findings: There is no evidence of any significant mediastinal, hilar or axillary lymphadenopathy. The mediastin al soft tissues appear normal. No central pulmonary embolus seen. No aortic aneurysm or dissection. There is no evidence of pleural or pericardial effusion. The lungs are clear. No pulmonary nodules or infiltrates are noted. The liver, spleen, pancreas, adrenals and kidneys are within normal limits. Gallbladder is distended, with diffuse wall thickening and pericholecystic inflammatory change. There are extensive atheroscle rotic calcifications of the aorta and iliac vessels. No lymphadenopathy. No bowel obstruction or bowel wall thickening. There is no evidence to suggest acute appendicitis. Urinary bladder is unremarkable. No pelvic mass seen. No ascites. Impression: Findings consistent with acute cholecystitis, as detailed above. Extensive atherosclerotic calcification of the abdominal aorta and iliac vessels. Reviewed, dictated and finalized at location . Impression: Findings consistent with acute cholecystitis, as detailed above. Extensive atherosclerotic calcification of the abdominal aorta and iliac vessel s.
--- NOTE | ~2025-01-22 | XR_ITS ---
Portable chest x-ray Comparison: 10/09/2024 Clinical History: Chest pain Findings: Lungs are clear, without focal consolidation or pleural effusion. Cardiomediastinal silho uette is stable, with pacemaker device. Bones and soft tissues are unremarkable. Impression: Clear lungs. Reviewed, dictated and finalized at location . Impression: Clear lungs.
[2025-01-22 23:38] VITALS: BP 178/99; PULSE 78; RESP 20; TEMP 36.6; O2SAT 100
--- OUTSIDE RECORDS SUMMARY | 2025-01-22 23:39 | XMS_ITS | Encounter Summary ---
Author Organization [facility] Address [address] [place] [address] Care Team Providers Care Foundation Director Name Role Phone Alba Roberts MD Primary Care Provider Manuel Yi MD Primary Care Provider [phone] Encounter Details Date Type Department Care Team (Late st Contact Info) Description 02/12/2017 Orders Only [facility] ProviderGreyson MD [address] [place] [id number] Social History Tobacco Use Types Packs/Day Years Used Date Smoking Tobacco: Former Alcohol Use Standard Drinks/Week Comments No 0 (1 standard drink = 0.6 oz pur e alcohol) Sex and Gender Information Value Date Recorded Sex Assigned at Not on file Legal Sex 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 Historical Provider [facility] JIMMIE REYNAGA Final Result documented in this encounter Visit Diagnoses Not on filedocumented in this encounter Care Teams Foundation Director Relationship Specialty Start Date End Date Alba Roberts MD [address] [facility] [address] [place] [address] PCP - General 02/12/17 04/21/17 Manuel Yi MD [address] [address] PCP - General Family Medicine 04/22/17 01/27/24 documented as of this encounter
--- OUTSIDE RECORDS SUMMARY | 2025-01-22 23:39 | XMS_ITS | Referral Summary ---
Author Organization [facility] [address] Address [address] [place] [address] Care Team Providers Care Fretted String Instrument Repairer Name Role Phone Unavailable Primary Care Provider Unavailabl e Allergies No known active allergies Medications spironolactone (ALDACTONE) 25 mg tabletIndicatio ns:NICM (nonischemic cardiomyopathy) (HCC) Take 1 tablet (25 mg total) by mouth every morning 90 tablet 3 06/14/2023 Active sacubitriL-vals danis (Entresto) 24-26 mg tabletIndicatio ns:NICM (nonischemic cardiomyopathy) (HCC) TAKE 2 TABLETS BY MOUTH EVERY 12 HOURS 360 tablet 2 01/11/2024 Active empagliflozin (Jardiance) 10 mg tablet TAKE 1 TABLET(10 MG) BY MOUTH DAILY 90 tablet 2 01/11/2024 Active carvediloL (COREG) 25 mg tabletIndicatio ns:NICM (nonischemic cardiomyopathy) (HCC),Chronic systolic heart failure (HCC) TAKE 1 TABLET(25 MG) BY MOUTH TWICE DAILY WITH MEALS 180 tablet 2 02/16/2024 Active Active Problems Problem Noted Date Diagnosed Date Presence of cardioverter defibrillator 3 Automatic implantable cardiac defibrillator in s itu 05/12/2023 Overview (07/15/2023): Emily Dual ICD. Dx; NICM. DOI 07/23/2023-Kahanda. Francie Pittman remote monitoring. Tobacco use 04/10/2021 Essential hypertension 04/10/2021 Chronic systolic heart failure 01/04/2017 Overview (03/19/2017): Chronic systolic congestive heart failure Counseling procedure with explicit context 11/04 Overview (01/28/2017): Exercise counseling NICM (nonischemic cardiomyopathy) 11/04/2016 Overview (01/28/2017): Dilated cardiomyopathy Hyperlipidemia LDL goal <130 11/04/2016 Overview (01/28/2017): Hyperlipidemia, unspecified hyperlipidemia type Social History Tobacco Use Types Packs/Day Years Used Date Smoking Tobacco: Every Day Cigarettes Smokeless Tobacco: Never Tobacco Cessation:Ready to Q uit: Not Asked; Counseling Given: Not Answered Alcohol Use Standard Drinks/Week Comments No 0 (1 standard drink = 0.6 oz pur e alcohol) Personal Safety Answer Date Recorded Have you ever been in or are you currently in a harmful physical or emotional relationship or is someone making you feel afraid or unsafe? Denies 07/23/2023 Sex and Gender Information Value Date Recorded Sex Assigned at Not on file Legal Sex Male 4:20 AM FRETTED STRING INSTRUMENT REPAIRER Gender Identity Not on file Sexual Orientation Not on file Last Filed Vital Signs Vital Sign Reading Time Taken Comments Blood Pressure 119/76 01/24/2024 3:32 PM CDT Pulse 92 10/01/2023 3:16 PM FRETTED STRING INSTRUMENT REPAIRER Temperature 36.6 C (97.9 F) 07/24/2023 7:34 AM CDT Respiratory Rate 18 07/24/2023 7:34 AM CDT Oxygen Saturation 92% 10/01/2023 3:16 PM FRETTED STRING INSTRUMENT REPAIRER Inhaled Oxygen Concentration - - Weight 84.8 kg (187 lb) 10/01/2023 3:16 PM FRETTED STRING INSTRUMENT REPAIRER Height 175.3 cm (5' 9 ) 10/01/2023 3:16 PM FRETTED STRING INSTRUMENT REPAIRER Body Mass Index 27.62 10/01/2023 3:16 PM FRETTED STRING INSTRUMENT REPAIRER Plan of Treatment Not on file Medical Devices Implanted Type Area Airline Lounge Receptionist Device Identifier Shelf Expiration Date Model / Serial / Lot Medtronic Inc Tyrx Absorbable Antibacterial Envelope-Large 3.3x2.9in [id number] - [id number] Implanted:Qty: 1 on 07/23/2023 by Robles Berrios MD at [facility] Collagen Left: Infraclavicular Anterior Chest Wall Medtronic Inc 04/22/2024 [id number] / / [id number] Diaz Vascular Defibrillator Vr Mri Compatible Rate Responsive [place] [id number] - [id number] - [id number] Implanted:Qty: 1 on 07/23/2023 by Robles Berrios MD at [facility] ICD Left: Infraclavicular Anterior Chest Wall [employer] V[employer] 01/22/2025 [id number] 0Q / [id number] / [employer] Durata 6.8fr 58cm 1 Coil True Bipolar Active Fixation Extendable 7122q/58 - [id number] - [id number] Implanted:Qty: 1 on 07/23/2023 by Robles Berrios MD at [facility] Lead Right: Ventricle [employer] 03/24/2026 7122Q/5 8 / [id number] / Insurance [facility] Advance Directives For more information, please contact: [phone] * Full Code (Latest Code Status on File) Date Activated Date Inactivated Comments 07/23/2023 2:04 PM 07/24/2023 5:31 PM
--- OUTSIDE RECORDS SUMMARY | 2025-01-22 23:39 | XMS_ITS | Clinical Summary ---
Author Organization [facility] [address] Address [address] [place] [address] Care Team Providers Care Manager Labor Delivery Name Role Phone Unavailable Primary Care Provider [...] 11/04/2016 Overview (01/28/2017): Hyperlipidemia, unspecified hyperlipidemia type Surgical History Surgery Date Site/Laterality Comments CARPAL TUNNEL RELEASE CARDIAC CATHETERIZATION 10/06/2022 normal coronary arteries Medical History Medical History Date Comments Hypertension CHF (congestive heart failure) (HCC) Hyperlipidemia Cholelithiasis 10/05/2022 Family History Medical History Relation Name Comments Other Father 2 Unknown; Cause of : Unknown Heart failure Mother 2 Congestive hea rt failure; Relation Name Status Comments Father 1 Father 2 Mother 1 (Age 62) Mother 2 Social History Tobacco Use Types Packs/Day Years [...] on file Legal Sex Male 4:20 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 Gender Identity Not on file Sexual Orientation Not on file Obstetrics History Last Filed Vital Signs Vital Sign Reading Time Taken Comments Blood Pressure 119/76 01/24/2024 3:32 PM CDT Pulse 92 10/01/2023 3:16 PM HEAVY EQUIPMENT DIESEL MECHANIC Temperature 36.6 C (97.9 F) 07/24/2023 7:34 AM CDT Respiratory Rate 18 07/24/2023 7:34 AM CDT Oxygen Saturation 92% 10/01/2023 3:16 PM HEAVY EQUIPMENT DIESEL MECHANIC Inhaled Oxygen Concentration - - Weight 84.8 kg (187 lb) 10/01/2023 3:16 PM HEAVY EQUIPMENT DIESEL MECHANIC Height 175.3 cm (5' 9 ) 10/01/2023 3:16 PM HEAVY EQUIPMENT DIESEL MECHANIC Body Mass Index 27.62 10/01/2023 3:16 PM HEAVY EQUIPMENT DIESEL MECHANIC Plan of Treatment Health Maintenance Due Date Last Done Comments Colon Cancer Screening-Colonoscopy 1970 Depression Screening 1970 Hepatitis C Screening 1970 Prostate Cancer Screening-PSA 1970 DTaP/Tdap/Td Vaccine (1 - Tdap) 1981 Hepatitis B Screening 1988 Regular Well Visit/Exam 18-64 1988 Pneumococcal vaccine <65 (1 of 2 - PCV) 1989 Zoster Vaccine (1 of 2) 2020 Influenza Vaccine (#1) 2024 Medical Devices Implanted Type Area Human Resource Intern Device Identifier Shelf Expiration Date Model / Serial / Lot Medtronic Inc Tyrx Absorbable Antibacterial Envelope-Large 3.3x2.9in [id number] - [id number] Implanted:Qty: 1 on 07/23/2023 by Robles Berrios MD at [facility] Collagen Left: Infraclavicular Anterior Chest Wall Med[employer]onic Inc 04/22/2024 [id number] / / [id number] Diaz Vascular Defibrillator Vr Mri Compatible Rate Responsive [place] [id number] - [id number] - [id number] Implanted:Qty: 1 on 07/23/2023 by Robles Berrios MD at [facility] ICD Left: Infraclavicular Anterior Chest Wall [employer] 01/22/2025 [id number] 0Q / [id number] / [employer] Durata 6.8fr 58cm 1 Coil True Bipolar Active Fixation Extendable 7122q/58 - [id number] - [id number] Implanted:Qty: 1 on 07/23/2023 by Robles Berrios MD at [facility] Lead Right: Ventricle [employer] 03/24/2026 7122Q/5 8 / [id number] / Insurance [facility] Advance Directives For more information, please contact: [phone] * Full Code (Latest Code Status on File) Date Activated Date Inactivated Comments 07/23/2023 2:04 PM 07/24/2023 5:31 PM
--- NOTE | 2025-01-22 23:42 | ECG_ITS ---
Test Date: 2025-01-22 23:49:55 Measurements Intervals [place] Rate: 74 P: 37 MO: 154 QRS: -65 QRSD: 102 T: 55 QT: 401 QTc: 446 Interpretive Statements SINUS RHYTHM LEFT ANTERIOR FASCICULAR BLOCK BASELINE ARTIFACT- I, II, III, V5-V6 ABNORMAL ECG Compared to ECG 10/09/2024 11:41:04 Left anterior fascicular block now present Electronically Signed On 01-23-2025 06:15:18 CDT by Ryan Hill D.O.
[2025-01-23] VITALS (11 sets, daily range): BP systolic 151–187; BP diastolic 56–114; PULSE 75–89; RESP 14–20; TEMP 36.5; O2SAT 96–100; BMI 27.9
[2025-01-23 00:08] LABS: Basophils Percent Auto 0.6 % (0.2-1.2); Eosinophils Absolute Auto 0.2 K/mm3 (0-0.3); Eosinophils Percent Auto 3.3 % (0-4.4); Hematocrit 41.8 % (42.0-52.0); Hemoglobin 14.3 g/dL (14.0-18.0); Immature Granulocyte Absolute 0.04 K/mm3 (0.00-0.031); Immature Granulocyte Percent A 0.6 % (0-0.5); Lymphocytes Absolute Auto 1.64 K/mm3 (0.9-3.2); Lymphocytes Percent Auto 26.1 % (18.3-44.2); Mean Corpuscular HGB Conc 34.2 g/dl (32-36); Mean Corpuscular Hemoglobin 28.5 pg (26-34); Mean Corpuscular Volume 83.4 fl (80-100); Mean Platelet Volume 8.5 fl (7.4-10.4); Monocytes Absolute Auto 0.6 K/mm3 (0.1-0.6); Monocytes Percent Auto 9.2 % (2.6-8.5); Neutrophils Absolute Auto 3.8 K/mm3 (1.3-6.7); Neutrophils Percent Auto 60.2 % (45.5-73.1); Platelet Count Result 264 k/mm3 (150-375); Red Blood Count 5.01 M/mm3 (4.6-6.20); Red Cell Distribution Width 12.5 % (11.5-14.5); White Blood Count 6.3 K/mm3 (4.5-10.0)
[2025-01-23] MEDS: ASPIRIN 81 MG CHEWABLE TABLET 324 MG PO (00:16)
[2025-01-23 00:23] LABS: Alanine Aminotransferase 110 U/L (6-50); Albumin Level 3.9 g/dL (3.5-5.1); Alkaline Phosphatase 134 U/L (38-126); Anion Gap 7 mmol/L (4-12); Aspartate Amino Transferase 189 U/L (17-59); Bilirubin,Total 0.6 mg/dL (0.2-1.3); Blood Urea Nitrogen 16 mg/dL (9-20); Calcium 8.7 mg/dL (8.4-10.2); Carbon Dioxide 31 mmol/L (22-30); Chloride 98 mmol/L (98-107); Estimated CRCL calculation 77 ml/min; Estimated Glomerular Filt Rate > 60; Glucose 108 mg/dL (65-110); Lipase 91 U/L (23-300); Potassium 4.3 mmol/L (3.4-5.0); Sodium 136 mmol/L (137-145)
[2025-01-23] MEDS: PANTOPRAZOLE SODIUM IV 40 MG VIAL IV PUSH (01:05)
[2025-01-23] MEDS: ONDANSETRON INJ 4 MG/2 ML VIAL IV PUSH ×4 (01:05→15:37)
[2025-01-23] MEDS: MORPHINE SULFATE (*CRX) 4 MG/ML INJ IV PUSH (01:05)
--- OUTSIDE RECORDS SUMMARY | 2025-01-23 01:29 | XMS_ITS | Clinical Summary ---
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 Gender Identity Not on file Sexual Orientation Not on file Obstetrics History Last Filed Vital Signs Vital Sign Reading Time Taken Comments Blood Pressure 119/76 01/24/2024 3:32 PM CDT Pulse 92 10/01/2023 3:16 PM ROCK STAR Temperature 36.6 C (97.9 F) 07/24/2023 7:34 AM CDT Respiratory Rate 18 07/24/2023 7:34 AM CDT Oxygen Saturation 92% 10/01/2023 3:16 PM ROCK STAR Inhaled Oxygen Concentration - - Weight 84.8 kg (187 lb) 10/01/2023 3:16 PM ROCK STAR Height 175.3 cm (5' 9 ) 10/01/2023 3:16 PM ROCK STAR Body Mass Index 27.62 10/01/2023 3:16 PM ROCK STAR Plan of Treatment Health Maintenance Due Date [...] (#1) 2024 Medical Devices Implanted Type Area Air Traffic Instructor Device Identifier Shelf Expiration Date Model / Serial / Lot Medtronic Inc Tyrx Absorbable Antibacterial Envelope-Large 3.3x2.9in [id number] - [id number] Implanted:Qty: 1 on 07/23/2023 by Robles Berrios MD at [facility] Collagen Left: Infraclavicular Anterior Chest Wall Medtronic Inc 04/22/2024 [id number] / / [id number] Diaz Vascular Defibrillator Vr Mri Compatible Rate Responsive [place] [id number] - [id number] - [id number] Implanted:Qty: 1 on 07/23/2023 by Robles Berrios MD at [facility] ICD Left: Infraclavicular Anterior Chest Wall [employer] V[employer] 01/22/2025 [id number] 0Q / [id number] / [employer] Durata 6.8fr 58cm 1 Coil True Bipolar Active Fixation Extendable 7122q/58 - [id number] - [id number] Implanted:Qty: 1 on 07/23/2023 by Robles Berrios MD at [facility] Lead Right: Ventricle [employer] 03/24/2026 7122Q/5 8 / [id number] / [facility] Advance Directives For more information, please contact: [phone] * Full Code (Latest Code Status on File) Date Activated Date Inactivated Comments 07/23/2023 2:04 PM 07/24/2023 5:31 PM
--- OUTSIDE RECORDS SUMMARY | 2025-01-23 01:29 | XMS_ITS | Referral Summary ---
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 ASSISTANT Gender Identity Not on file Sexual Orientation Not on file Last Filed Vital Signs Vital Sign Reading Time Taken Comments Blood Pressure 119/76 01/24/2024 3:32 PM CDT Pulse 92 10/01/2023 3:16 PM APPEALS ASSISTANT Temperature 36.6 C (97.9 F) 07/24/2023 7:34 AM CDT Respiratory Rate 18 07/24/2023 7:34 AM CDT Oxygen Saturation 92% 10/01/2023 3:16 PM APPEALS ASSISTANT Inhaled Oxygen Concentration - - Weight 84.8 kg (187 lb) 10/01/2023 3:16 PM APPEALS ASSISTANT Height 175.3 cm (5' 9 ) 10/01/2023 3:16 PM APPEALS ASSISTANT Body Mass Index 27.62 10/01/2023 3:16 PM APPEALS ASSISTANT Plan of Treatment Not on file Medical Devices Implanted Type Area Business Director Device Identifier Shelf Expiration Date Model / Serial / Lot Med[employer]onic Inc Tyrx Absorbable Antibacterial Envelope-Large 3.3x2.9in [id number] - [id number] Implanted:Qty: 1 on 07/23/2023 by Robles Berrios MD at [facility] Collagen Left: Infraclavicular Anterior Chest Wall Med[employer] Inc 04/22/2024 [id number] / / [id number] Diaz Vascular Defibrillator Vr Mri Compatible Rate Responsive [place] [id number] - [id number] - [id number] Implanted:Qty: 1 on 07/23/2023 by Robles Berrios MD at [facility] ICD Left: Infraclavicular Anterior Chest Wall [employer] 01/22/2025 [id number] 0Q / [id number] / [employer] Durata 6.8fr 58cm 1 Coil True Bipolar Active Fixation Extendable 7122q/58 - [id number] - [id number] Implanted:Qty: 1 on 07/23/2023 by Robles Berrios MD at [facility] Lead Right: Ventricle [employer] 03/24/2026 7122Q/5 8 / [id number] / Insurance [facility] Advance Directives For more information, please contact: [phone] * Full Code (Latest Code Status on File) Date Activated Date Inactivated Comments 07/23/2023 2:04 PM 07/24/2023 5:31 PM
--- OUTSIDE RECORDS SUMMARY | 2025-01-23 01:29 | XMS_ITS | Encounter Summary ---
Author Organization [facility] Address [address] [place] [address] Care Team Providers Care Personnel Quality Assurance Auditor Name Role Phone Alba Roberts MD Primary Care Provider Manuel Yi MD Primary Care Provider [phone] Encounter Details Date Type Department Care Team (Late st Contact Info) Description 02/12/2017 Orders Only [facility] ProviderGreyson MD [address] [place] [id number] Social History Tobacco Use Types Packs/Day Years Used Date Smoking Tobacco: Former Alcohol Use Standard Drinks/Week Comments No 0 (1 standard drink = 0.6 oz pur e alcohol) Sex and Gender Information Value Date Recorded Sex Assigned at Not on file 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 Historical Provider [facility] JIMMIE ERYNAGA Final Result documented in this encounter Visit Diagnoses Not on filedocumented in this encounter Care Teams Personnel Quality Assurance Auditor Relationship Specialty Start Date End Date Alba Roberts MD [address] [facility] [address] [place] [address] PCP - General 02/12/17 04/21/17 Manuel Yi MD [address] [address] PCP - General Family Medicine 04/22/17 01/27/24 documented as of this encounter
--- NOTE | 2025-01-23 01:30 | ED.CHESTPAIN ---
HPI - Chest Pain General Chief Complaint: Chest Pain <CRISTAL Huff Last Filed: 01/23/25 17:13> Stated Complaint: chest pain <Heather CRISTAL Kwok Last Filed: 01/23/25 17:13> Time Seen by Provider: 01/23/25 00:27 <CRISTAL Huff Last Filed: 01/23/25 17:13> Source: patient <Heather Curran CRISTAL Dye Last Filed: 01/23/25 17:13> Mode of arrival: ambulatory <CRISTAL Huff Last Filed: 01/23/25 17:13> Limitations: no limitations <CRISTAL Huff Last Filed: 01/23/25 17:13> History of Present Illness HPI narrative: This is a 54 year old male that presents to the ER for epigastric pain. Reports the pain is sharp. Has been constant over the last couple of hours. Ongoing intermittently over the last couple of days. Reports associated shortness of breath. <CRISTAL Huff Last Filed: 01/23/25 17:13> Related Data Allergies/Adverse Reactions: Allergies Allergy/AdvReac Type Severity Reaction Status Date / Time No Known Allergies Allergy Unknown Verified 01/23/25 12:26 <CRISTAL Huff Last Filed: 01/23/25 17:13> Review of Systems Review of Systems: CONSTITUTIONAL: Denies fever CARDIOVASCULAR: Reports chest pain RESPIRATORY: Reports dyspnea. GASTROINTESTINAL: Reports abdominal pain. Denies nausea, vomiting <CRISTAL Huff Last Filed: 01/23/25 17:13> All systems reviewed & are unremarkable except as noted in HPI and below <CRISTAL Huff Last Filed: 01/23/25 17:13> [facility] Past Medical History Medical History: Medical History Tobacco abuse Chronic combined systolic and diastolic CHF (congestive heart failure) Hypertension Dilated cardiomyopathy <CRISTAL Huff Last Filed: 01/23/25 17:13> Surgical History Surgical History: Surgical History History of carpal tunnel release Hx of cardiac catheterization <Heather Dye PA-C - Last Filed: 01/23/25 17:13> Family History Family History: Family History Mother Family history of heart disease in male family member before age 55 Patient's mother is <Heather Dye PA-C - Last Filed: 01/23/25 17:13> Social History Social History: Social History Social History: The patient smokes 1/2 ppd. He is and has 2 sons. 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 Patient denies any all alcohol marijuana or illicit drugs. His sons are his durable power employee benefits attorney for healthcare. Code status full code Smoking packs per day: 0.75 Smoking cigarettes per day: 15.0 Years smoked: 27 Smoking pack-years: 20.25 Smoking status: Current every day smoker Tobacco type: cigarettes Second hand tobacco smoke exposure: Yes Alcohol intake: never Drinks per week: 6 Substance use: never Substance use type: does not use Do You Feel Safe in your Home?: Yes Lack of Transportation: No Lack of Food: Sometimes True Current Housing: I Have Housing Concerned About Future Housing: No Difficulty Paying Gas/Electric Bills: No Difficulty Paying for Meds: No Currently Unemployed: YES Education: Associate Degree Difficulty w/ Childcare or Family Care: No Spiritual care concerns: No <Heather Dye PA-C - Last Filed: 01/23/25 17:13> Exam Narrative: GENERAL: Uncomfortable, well-nourished, and in no acute distress. HEAD: Normocephalic, atraumatic. EYES: EOMI. ENT: Nares clear, no rhinorrhea or epistaxis. Mucous membranes moist. Oropharynx without tonsillar hypertrophy exudate or other lesions. CHEST: Clear to auscultation. No respiratory distress. No wheezes rales or rhonchi HEART: Regular rate and rhythm. No murmur heard. Normal peripheral pulses. ABDOMEN: Soft, nondistended, normal active bowel sounds. Tender to palpation in the epigastrium and right upper quadrant EXTREMITIES: Normal range of motion. No edema. SKIN: Warm, dry, no rash. NEURO: No focal deficits. Alert and oriented x3. PSYCH: Normal mood and affect <Heather Dye PA-C - Last Filed: 01/23/25 17:13> Course DATA CONTROL ASSISTANT/PA Physician Supervision I agree with midlevel documentation; I performed my own medical decision making component of this evaluation. I had independent [id number] time with the patient and performed my own independent evaluation and assessment. Patient came in with epigastric pain right upper quadrant pain worse with eating. His CT scan was independently reviewed by myself, awaiting radiology read. He CT scan shows a heavily dilated gallbladder with gallbladder wall thickening and pericholecystic fluid. General surgery Dr. Amador was consulted and will be on consult while patient is admitted to the hospitalist service given his significant cardiac history including dilated cardiomyopathy with an AICD/pacemaker. Patient was started on antibiotics and pain control medications. Awaiting radiology read for further delineation of the angiography studies that we were ordered. Spoke to the hospitalist who recommended waiting on full read prior to admission here as there is concern that he might need an MRCP in which case he will have to be transferred to a facility that has that capability with his cardiac hardware. Patient CT report does show a hydropic gallbladder with findings consistent with acute cholecystitis but there also is a common bile duct dilatation 1.0 cm and possible obstruction. Patient's bilirubin is normal at 0.6 but he does have elevated LFTs otherwise ALT AST and alk-phos are all up. Spoke to my watch inspector final movement colleague Dr. Arnold and based on the imaging findings he may need an MRCP for the further delineation although less likely since he has a normal Bilirubin. We do not have MRI capable MRCP availability here given his AICD/pacemaker and he will have to be transferred to a higher level of care center. Spoke to the patient and made him aware of the findings. He does not have any preference on transfer location. Patient was accepted as a transfer to [facility] to a general surgical bed under the hospitalist Dr. Doherty. I was informed that there are no beds available at this time so patient will be waiting here in the ED. PRN meds ordered. Patient CT scan was over-read by our staff radiologist in the morning and showed findings consistent with acute cholecystitis. No mention of any other ductal dilatation or disease. He has had previous CBD dilations in the past on imaging and normal bilirubin now, GI thinks he may have passed a previous stone. Our general surgeon is on consult and I spoke to our hospitalist who accepted the patient to a bed at this facility. <Tomer Sparrow MD - Last Filed: 01/23/25 20:21> Consultations Consultation #1: spoke with Dr. Amador who will consult <Heather Dye PA-C - Last Filed: 01/23/25 17:13> Date: 01/23/25 <Heather Dye PA-C - Last Filed: 01/23/25 17:13> Vital Signs Vital signs: Vital Signs Temperature 36.6 C 01/22/25 23:38 Pulse Rate 78 01/22/25 23:38 Respiratory Rate 20 01/22/25 23:38 Blood Pressure 178/99 H 01/22/25 23:38 Pulse Oximetry 100 01/22/25 23:38 Oxygen Delivery Room Air 01/22/25 23:38 Temperature 36.5 C 01/23/25 12:05 Pulse Rate 89 01/23/25 16:04 Respiratory Rate 19 01/23/25 12:05 Blood Pressure 151/56 H 01/23/25 12:05 Pulse Oximetry 96 01/23/25 12:05 Oxygen Delivery Room Air 01/23/25 12:05 <Heather Dye PA-C - Last Filed: 01/23/25 17:13> Vital Signs Temperature 36.6 C 01/22/25 23:38 Pulse Rate 78 01/22/25 23:38 Respiratory Rate 20 01/22/25 23:38 Blood Pressure 178/99 H 01/22/25 23:38 Pulse Oximetry 100 01/22/25 23:38 Oxygen Delivery Room Air 01/22/25 23:38 Temperature 36.5 C 01/23/25 12:05 Pulse Rate 89 01/23/25 16:04 Respiratory Rate 19 01/23/25 12:05 Blood Pressure 151/56 H 01/23/25 12:05 Pulse Oximetry 96 01/23/25 12:05 Oxygen Delivery Room Air 01/23/25 12:05 <Tomer Sparrow MD - Last Filed: 01/23/25 20:21> MDM - Chest Pain MDM Narrative Medical decision making narrative: 54-year-old male with history of cardiac disease including dilated cardiomyopathy status post AICD/pacemaker. Presented with epigastric and right upper quadrant pain onset with food. History of gallstones. CTA and laboratory studies ordered. EKG and troponins ordered. Patient was given pain control medications. I did consult general surgery for likely acute cholecystitis. Pending CTA read care taken over by Dr. Sparrow <Heather Dye PA-C - Last Filed: 01/23/25 17:13> 54-year-old male with history of cardiac disease including dilated cardiomyopathy status post AICD/pacemaker. Presented with epigastric and right upper quadrant pain onset with food. History of gallstones. CTA and laboratory studies ordered. EKG and troponins ordered. Patient was given pain control medications. <Tomer Sparrow MD - Last Filed: 01/23/25 20:21> Differential Diagnosis Differential diagnosis: Likely stable angina, atypical chest pain, biliary colic and other (GERD, esophagitis, gastritis, acute cholecystitis, pancreatitis) <Heather Dye PA-C - Last Filed: 01/23/25 17:13> Lab Data Attestation: I reviewed the patient's lab results. <Heather Dye PA-C - Last Filed: 01/23/25 17:13> Result diagrams: 01/23/25 10:39 01/23/25 10:39 <Heather Dye PA-C - Last Filed: 01/23/25 17:13> Labs: Lab Results 01/22/25 01/23/25 01/23/25 Range/Units 23:56 02:54 06:12 WBC 6.3 (4.5-10.0) K/mm3 RBC 5.01 (4.6-6.20) M/mm3 Hgb 14.3 (14.0-18.0) g/dL Hct 41.8 L (42.0-52.0) % MCV 83.4 (80-100) fl MCH 28.5 (26-34) pg MCHC 34.2 (32-36) g/dl RDW 12.5 (11.5-14.5) % Plt Count 264 (150-375) k/mm3 MPV 8.5 (7.4-10.4) fl Immature Gran % (Auto) 0.6 H (0-0.5) % Neut % (Auto) 60.2 (45.5-73.1) % Lymph % (Auto) 26.1 (18.3-44.2) % [place] % (Auto) 9.2 H (2.6-8.5) % Eos % (Auto) 3.3 (0-4.4) % Baso % (Auto) 0.6 (0.2-1.2) % Lymph # (Auto) 1.64 (0.9-3.2) K/mm3 [place] # (Auto) 0.6 (0.1-0.6) K/mm3 Eos # (Auto) 0.2 (0-0.3) K/mm3 Baso # (Auto) 0.0 (0.0-0.1) K/mm3 Abs Immat Gran (auto) 0.04 H (0.00-0.031) K/mm3 Absolute Neuts (auto) 3.8 (1.3-6.7) K/mm3 Absolute Nucleated RBC 0.000 (0.0-0.012) K/mm3 Nucleated RBC % 0.0 (0.0-0.2) % PT 13.0 (11.1-14.7) Seconds INR 1.0 APTT 32.0 (22.3-36.8) Seconds Sodium 136 L (137-145) mmol/L Potassium 4.3 (3.4-5.0) mmol/L Chloride 98 (98-107) mmol/L Carbon Dioxide 31 H (22-30) mmol/L Anion Gap 7 (4-12) mmol/L BUN 16 (9-20) mg/dL Creatinine 0.97 (0.7-1.3) mg/dL Estim Creat Clear Calc 77 ml/min Estimated GFR > 60 (59 - ) Glucose 108 (65-110) mg/dL Calcium 8.7 (8.4-10.2) mg/dL Total Bilirubin 0.6 (0.2-1.3) mg/dL AST 189 H (17-59) U/L ALT 110 H (6-50) U/L Alkaline Phosphatase 134 H (38-126) U/L Troponin I 0.030 0.034 0.026 D (0.000-0.034) ng/mL Total Protein 7.0 (6.3-8.2) g/dL Albumin 3.9 (3.5-5.1) g/dL Lipase 91 (23-300) U/L <Heather Dye PA-C - Last Filed: 01/23/25 17:13> Lab Results 01/22/25 01/23/25 01/23/25 Range/Units 23:56 02:54 06:12 WBC 6.3 (4.5-10.0) K/mm3 RBC 5.01 (4.6-6.20) M/mm3 Hgb 14.3 (14.0-18.0) g/dL Hct 41.8 L (42.0-52.0) % MCV 83.4 (80-100) fl MCH 28.5 (26-34) pg MCHC 34.2 (32-36) g/dl RDW 12.5 (11.5-14.5) % Plt Count 264 (150-375) k/mm3 MPV 8.5 (7.4-10.4) fl Immature Gran % (Auto) 0.6 H (0-0.5) % Neut % (Auto) 60.2 (45.5-73.1) % Lymph % (Auto) 26.1 (18.3-44.2) % [place] % (Auto) 9.2 H (2.6-8.5) % Eos % (Auto) 3.3 (0-4.4) % Baso % (Auto) 0.6 (0.2-1.2) % Lymph # (Auto) 1.64 (0.9-3.2) K/mm3 [place] # (Auto) 0.6 (0.1-0.6) K/mm3 Eos # (Auto) 0.2 (0-0.3) K/mm3 Baso # (Auto) 0.0 (0.0-0.1) K/mm3 Abs Immat Gran (auto) 0.04 H (0.00-0.031) K/mm3 Absolute Neuts (auto) 3.8 (1.3-6.7) K/mm3 Absolute Nucleated RBC 0.000 (0.0-0.012) K/mm3 Nucleated RBC % 0.0 (0.0-0.2) % PT 13.0 (11.1-14.7) Seconds INR 1.0 APTT 32.0 (22.3-36.8) Seconds Sodium 136 L (137-145) mmol/L Potassium 4.3 (3.4-5.0) mmol/L Chloride 98 (98-107) mmol/L Carbon Dioxide 31 H (22-30) mmol/L Anion Gap 7 (4-12) mmol/L BUN 16 (9-20) mg/dL Creatinine 0.97 (0.7-1.3) mg/dL Estim Creat Clear Calc 77 ml/min Estimated GFR > 60 (59 - ) Glucose 108 (65-110) mg/dL Calcium 8.7 (8.4-10.2) mg/dL Total Bilirubin 0.6 (0.2-1.3) mg/dL AST 189 H (17-59) U/L ALT 110 H (6-50) U/L Alkaline Phosphatase 134 H (38-126) U/L Troponin I 0.030 0.034 0.026 D (0.000-0.034) ng/mL Total Protein 7.0 (6.3-8.2) g/dL Albumin 3.9 (3.5-5.1) g/dL Lipase 91 (23-300) U/L <Tomer Sparrow MD - Last Filed: 01/23/25 20:21> Imaging Data Radiologist's impression: Chest x-ray: No consolidation, pneumothorax or significant pleural effusion. The cardiac silhouette is within normal limits ITS Impressions Chest/Abdomen/Pelvis CTA 01/23/25 06:13 Impression: Findings consistent with acute cholecystitis, as detailed above. Extensive atherosclerotic calcification of the abdominal aorta and iliac vessels. Chest X-Ray 01/23/25 06:16 Impression: Clear lungs. <Heather Dye PA-C - Last Filed: 01/23/25 17:13> Critical Care Time Critical Care Time Critical Care Time: No <Heather Dye PA-C - Last Filed: 01/23/25 17:13> Discharge Plan Discharge Clinical Impression: Acute cholecystitis, Dilated cardiomyopathy, Elevated LFTs <Heather Dye PA-C - Last Filed: 01/23/25 17:13> Patient Disposition: Acute Care Hospital <Heather Dye PA-C - Last Filed: 01/23/25 17:13> Condition: Stable <Heather Dye PA-C - Last Filed: 01/23/25 17:13> Time of Disposition: 06:47 <Heather Dye PA-C - Last Filed: 01/23/25 17:13> 06:47 <Tomer Sparrow MD - Last Filed: 01/23/25 20:21>
--- NOTE | 2025-01-23 02:52 | ECG_ITS ---
Test Date: 2025-01-23 02:56:39 Measurements Intervals [place] Rate: 76 P: 57 [place]: 180 QRS: -60 QRSD: 111 T: 30 QT: 407 QTc: 460 Interpretive Statements SINUS RHYTHM LEFT ANTERIOR FASCICULAR BLOCK BASELINE ARTIFACT- I, II, AVR, AVF ABNORMAL ECG Compared to ECG 01/22/2025 23:49:55 No significant changes Electronically Signed On 01-23-2025 06:11:53 CDT by Ryan Hill D.O.
[2025-01-23] MEDS: HYDROmorphone HCL INJ (*CRX) 1 MG/ML SYR 0.5 MG IV PUSH ×5 (02:53→15:37)
[2025-01-23] MEDS: PIPERACILLN/TAZ 3.375GM/NS50ML 3.375 GM/50 ML BAG IVPB ×2 (02:53→11:16)
[2025-01-23 03:23] LABS: Troponin I 0.034 ng/mL (0.000-0.034)
[2025-01-23] MEDS: LACTATED RINGERS 1,000 ML 999 ML IV CONT (04:52)
[2025-01-23 06:39] LABS: Troponin I 0.026 ng/mL (0.000-0.034)
--- NOTE | 2025-01-23 10:22 | P.CONGS_ITS ---
Assessment and Plan Assessment and plan (1) Acute cholecystitis: Code(s): K81.0 - Acute cholecystitis Status: Acute Assessment and Plan: CTA showed evidence of acute cholecystitis. White blood cell count normal and LFTs are mildly elevated. He continues to have a significant amount of right upper quadrant pain with signs of localized peritonitis on exam. Will continue with IV antibiotics at this time and discussed treatment options with the patient in detail. He is a higher risk surgical candidate given his cardiac history and recent noncompliance. He previously had an EF of 20-25% and has not followed up with cardiology for over a year and been off of his medications for about a year. We discussed the option of also proceeding with percutaneous cholecystostomy tube placement in IR as an alternative option. The patient verbalized understanding and agrees to proceed. We will order perc cholecystostomy tube placement today. Continue IV Zosyn. Will at gentle IV fluids while awaiting the procedure and NPO. Will also order repeat labs today. (2) Cholelithiasis: Code(s): K80.20 - Calculus of gallbladder without cholecystitis without obstruction Status: Acute (3) Elevated LFTs: Code(s): R79.89 - Other specified abnormal findings of blood chemistry Status: Acute Assessment and Plan: AST, ALT, and alk-phos mildly elevated. Total bilirubin normal. Likely related to cholecystitis. Trend labs. (4) Dilated cardiomyopathy: Code(s): I42.0 - Dilated cardiomyopathy Status: Acute (5) Congestive heart failure: Code(s): I50.9 - Heart failure, unspecified Status: Acute (6) Hypertension: Code(s): I10 - Essential (primary) hypertension Status: Acute (7) Tobacco abuse: Code(s): Z72.0 - Tobacco use Status: Chronic Assessment and Plan: Encouraged cessation Plan I have discussed the patient's case and plan of care with Dr. Amador. Thank you for allowing us to see the patient in consultation and we will continue to follow along with you. History of Present Illness Consult details Consult date: 01/23/25 Reason for consult: other (Acute cholecystitis) Requesting physician: Heather Dye PA-C Narrative: This is a 54-year-old man with a history of dilated cardiomyopathy, CHF, and cholelithiasis, who we have been asked to see in surgical consultation for acute cholecystitis. We have seen this patient in the past in 2021 when he was hospitalized for COVID-19, elevated LFTs, and dilated cardiomyopathy. At that time, he had echocardiogram that showed an EF of 20-25% and had a cardiac catheterization that showed normal coronary arteries. He had an abdominal ultrasound that showed cholelithiasis with mild wall thickening and gallbladder adenomyomatosis. He was asymptomatic and high risk for elective surgery at that time due to his cardiac status, therefore surgery was deferred and he was instructed to follow a low-fat diet. Since then, he had a defibrillator inserted in 2022 and admittedly has fallen out of follow-up with cardiology since that time. He states he has not seen a tray room worker for more than a year and has been off of all of his cardiac medications for at least a year. He cannot recall the last time he had an echocardiogram and believes it was probably in 2021 when he was admitted at [facility]. He has not had any issues with abdominal or chest pain since then, but over the past week has had intermittent episodes of pain. Last Wednesday and Wednesday he would have pain after eating, which did eventually resolve towards the end of the week. Yesterday evening he developed epigastric abdominal pain around 10:00 p.m. a few hours after eating buffalo chicken mac and cheese for dinner. His pain persisted throughout the night and was more severe than last week. He had mild nausea, but no vomiting. He also reports feeling like his ?heart was pounding of his chest. ? In the ED, he has been hypertensive with his blood pressures in the 170s/100s. Labs showed a normal white blood cell count, total bilirubin 0.6, AST 189, ALT 110, alk-phos 134, and lipase normal. Troponin negative x3. CTA chest, abdomen, pelvis showed findings consistent with acute cholecystitis, and extensive atherosclerotic calcification of the abdominal aorta and iliac vessels. No gallstone seen on CT, but he did have a previous abdominal ultrasound that showed cholelithiasis in adenomyomatosis. His abdominal pain has improved some with IV Dilaudid, but has remained constant. He received 1 dose of IV Zosyn and 1 L of IV fluids in the ED. He denies any previous abdominal surgery. Review of Systems 2 Review of Systems: All systems reviewed & are unremarkable except as noted in HPI and below PMFSH Past Medical History Medical History Tobacco abuse Chronic combined systolic and diastolic CHF (congestive heart failure) Hypertension Dilated cardiomyopathy Surgical History Surgical History History of carpal tunnel release Hx of cardiac catheterization Family History Family History Mother Family history of heart disease in male family member before age 55 Patient's mother is Social History Social History Social History: The patient smokes 1/2 ppd. He is and has 2 sons. 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 Patient denies any all alcohol marijuana or illicit drugs. His sons are his durable power trademark attorney for healthcare. Code status full code Smoking packs per day: 0.5 Smoking cigarettes per day: 10.0 Years smoked: 35 Smoking pack-years: 17.50 Smoking status: Former smoker Tobacco type: cigarettes Second hand tobacco smoke exposure: Yes Alcohol intake: never Drinks per week: 6 Substance use: never Substance use type: does not use Lack of Transportation: No Lack of Food: Sometimes True Current Housing: I Have Housing Concerned About Future Housing: No Difficulty Paying Gas/Electric Bills: No Difficulty Paying for Meds: No Currently Unemployed: YES Education: Associate Degree Difficulty w/ Childcare or Family Care: No Spiritual care concerns: No Meds Home Medications and Allergies Home Medications ?Medication ?Instructions ?Recorded ?Confirmed ?Type carvedilol 6.25 mg tablet (Coreg) 6.25 mg PO Q12HR #60 tabs 10/03/22 10/05/22 Rx sacubitril 24 mg-valsartan 26 mg 1 tab PO Q12HR #60 tabs 10/03/22 10/05/22 Rx tablet (Entresto) spironolactone 25 mg tablet 25 mg PO QAM #30 tabs 10/03/22 10/05/22 Rx Allergies Allergy/AdvReac Type Severity Reaction Status Date / Time No Known Allergies Allergy Unknown Verified 01/22/25 23:37 Vital Signs Vital Signs - 24 hr 01/22/25 23:38 01/23/25 00:50 01/23/25 02:03 Temperature 97.8 F Pulse Rate 78 89 Respiratory Rate 20 15 Blood Pressure 178/99 H 176/98 H Pulse Oximetry 100 100 100 Oxygen Delivery Room Air Room Air 01/23/25 04:26 01/23/25 08:15 01/23/25 09:30 Temperature Pulse Rate 80 78 75 Respiratory Rate 14 16 16 Blood Pressure 177/101 H 173/103 H 179/114 H Pulse Oximetry 99 100 98 Oxygen Delivery 01/23/25 10:00 Temperature Pulse Rate 78 Respiratory Rate 16 Blood Pressure 187/114 H Pulse Oximetry 96 Oxygen Delivery Exam 2 Const: General: comfortable and no acute distress Nutritional Appearance: a verage body habitus Orientation/consciousness: patient oriented x3 HENMT: Head: normocephalic and atraumatic Ears: hearing grossly normal bilaterally Mouth: Yes moist mucous membranes Eyes: General: appearance normal, both eyes and all related structures P upils: Equal, round and reactive pupils present Neck: Neck: normal visual inspection and full ROM Resp: Effort & Inspection: no respiratory distress Auscultation: clear to auscultation bilaterally Cardio: Rate: regular rate Rhythm: regular rhythm Peripheral pulses: P eripheral pulses 2+ throughout GI: Inspection: non-distended and no scars GI Palp: Yes Soft to palpation, Yes Tenderness to palpation present (GI) (RUQ), Yes Guarding due to palpation present (GI) (RUQ), No Hernia present, No Rebound tenderness present and Yes Other GI palpation findings present (+ Palma's sign) Auscultation: normal bowel sounds Skin: General skin exam: normal color Neuro: General: moves all extremities and no focal motor deficits Speech: n ormal speech Motor exam (neuro): 5/5 motor strength present throughout Extrem: General: normal to inspection and no edema Psych: Mental Status: mental status grossly normal Attitude: cooperative Insight: Good insight present (Psych) Judgement: Good judgement present (Psych) Results Labs 01/22/25 23:56 01/22/25 23:56 Labs: Abnormal lab results 01/22/25 Range/Units 23:56 Hct 41.8 L (42.0-52.0) % Immature Gran % (Auto) 0.6 H (0-0.5) % [place] % (Auto) 9.2 H (2.6-8.5) % Abs Immat Gran (auto) 0.04 H (0.00-0.031) K/mm3 Sodium 136 L (137-145) mmol/L Carbon Dioxide 31 H (22-30) mmol/L AST 189 H (17-59) U/L ALT 110 H (6-50) U/L Alkaline Phosphatase 134 H (38-126) U/L Diabetes panel 01/22/25 Range/Units 23:56 Sodium 136 L (137-145) mmol/L Potassium 4.3 (3.4-5.0) mmol/L Chloride 98 (98-107) mmol/L Carbon Dioxide 31 H (22-30) mmol/L BUN 16 (9-20) mg/dL Creatinine 0.97 (0.7-1.3) mg/dL Glucose 108 (65-110) mg/dL Calcium 8.7 (8.4-10.2) mg/dL AST 189 H (17-59) U/L ALT 110 H (6-50) U/L Alkaline Phosphatase 134 H (38-126) U/L Total Protein 7.0 (6.3-8.2) g/dL Albumin 3.9 (3.5-5.1) g/dL Calcium panel 01/22/25 Range/Units 23:56 Calcium 8.7 (8.4-10.2) mg/dL Albumin 3.9 (3.5-5.1) g/dL Pituitary panel 01/22/25 Range/Units 23:56 Sodium 136 L (137-145) mmol/L Potassium 4.3 (3.4-5.0) mmol/L Chloride 98 (98-107) mmol/L Carbon Dioxide 31 H (22-30) mmol/L BUN 16 (9-20) mg/dL Creatinine 0.97 (0.7-1.3) mg/dL Glucose 108 (65-110) mg/dL Calcium 8.7 (8.4-10.2) mg/dL Adrenal panel 01/22/25 Range/Units 23:56 Sodium 136 L (137-145) mmol/L Potassium 4.3 (3.4-5.0) mmol/L Chloride 98 (98-107) mmol/L Carbon Dioxide 31 H (22-30) mmol/L BUN 16 (9-20) mg/dL Creatinine 0.97 (0.7-1.3) mg/dL Glucose 108 (65-110) mg/dL Calcium 8.7 (8.4-10.2) mg/dL Total Bilirubin 0.6 (0.2-1.3) mg/dL AST 189 H (17-59) U/L ALT 110 H (6-50) U/L Alkaline Phosphatase 134 H (38-126) U/L Total Protein 7.0 (6.3-8.2) g/dL Albumin 3.9 (3.5-5.1) g/dL All other labs normal. Imaging Additional studies: ITS Impressions Chest/Abdomen/Pelvis CTA 01/23/25 06:13 Impression: Findings consistent with acute cholecystitis, as detailed above. Extensive atherosclerotic calcification of the abdominal aorta and iliac vessels. Chest X-Ray 01/23/25 06:16 Impression: Clear lungs.
[2025-01-23 10:44] LABS: Mean Corpuscular HGB Conc 34.1 g/dl (32-36); Mean Corpuscular Hemoglobin 28.6 pg (26-34); Mean Platelet Volume 8.3 fl (7.4-10.4); Platelet Count Result 238 k/mm3 (150-375); Red Blood Count 5.24 M/mm3 (4.6-6.20); Red Cell Distribution Width 12.4 % (11.5-14.5)
[2025-01-23 11:10] LABS: Alanine Aminotransferase 736 U/L (6-50); Alkaline Phosphatase 281 U/L (38-126); Anion Gap 7 mmol/L (4-12); Bilirubin,Total 2.2 mg/dL (0.2-1.3); Blood Urea Nitrogen 11 mg/dL (9-20); Calcium 8.8 mg/dL (8.4-10.2); Carbon Dioxide 30 mmol/L (22-30); Chloride 98 mmol/L (98-107); Estimated CRCL calculation 83 ml/min; Estimated Glomerular Filt Rate > 60; Glucose 116 mg/dL (65-110); Potassium 4.1 mmol/L (3.4-5.0); Sodium 135 mmol/L (137-145)
[2025-01-23] MEDS: hydrALAZINE HCL 20 MG/ML VIAL IV PUSH (11:16)
--- NOTE | 2025-01-23 12:00 | ADMGEN ---
This patient, Jose Juan Rodriguez, was admitted to Medical Room 249-01. Patient/family oriented to hospital policies and general routines including ID bracelet, bed and alarms, visiting hours, pain management, procedures, bathroom and other care routines, personal items, smoking policy, room service/diet, and visiting hours. Information on how to activate the Rapid Response Team has been discussed. Patient/Family are encouraged to report perceived risks to care and to ask questions if they do not understand what they are told or what they should do.
[2025-01-23 12:04] LABS: Aspartate Amino Transferase 968 U/L (17-59)
[2025-01-23] MEDS: SODIUM CHLORIDE 0.9% IV 1,000 ML 50 ML IV CONT (12:38)
--- NOTE | 2025-01-23 15:25 | P.HP_ITS ---
H&P: HPI History of Present Illness Date/Time: 01/23/25 15:25 Chief Complaint: Abd pain Narrative: 54-year-old male past medical history of dilated cardiomyopathy and hypertension presented to ER complaining pain patient reported having abdominal pain the past 2 days described as sharp upper abdominal region, constant and 8/10 intensity associated with a vomiting shortness of breath. Negative for vomiting denies any diarrhea no dysuria symptoms and lightheadedness. ER evaluation eval noted BP 176/98, IA 89, RR 15 Labs notable for the total bilirubin 2.2, AST 968, ALT 736, alkaline phosphatase 2 8 1. Chest x-ray unremarkable. CT abdomen and pelvis and chest showed acute cholecystitis. Shows the IV fluid and antibiotics. General surgery was consulted and evaluated the patient discussed with GI who recommended MRCP, unfortunately patient has a loop recorder will unable to do MRCP in our facility due to loop recorder thus he was transferred to [facility] for high-level of care. Review of Systems Review of Systems: All other systems reviewed and negative except as noted in history above. [facility] Past Medical History Medical History Tobacco abuse Chronic combined systolic and diastolic CHF (congestive heart failure) Hypertension Dilated cardiomyopathy Surgical History Surgical History History of carpal tunnel release Hx of cardiac catheterization Family History Family History Mother Family history of heart disease in male family member before age 55 Patient's mother is Social History Social History Social History: The patient smokes 1/2 ppd. He is and has 2 sons. 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 Patient denies any all alcohol marijuana or illicit drugs. His sons are his durable power workers compensation defense attorney for healthcare. Code status full code Smoking packs per day: 0.75 Smoking cigarettes per day: 15.0 Years smoked: 27 Smoking pack-years: 20.25 Smoking status: Current every day smoker Tobacco type: cigarettes Second hand tobacco smoke exposure: Yes Alcohol intake: never Drinks per week: 6 Substance use: never Substance use type: does not use Do You Feel Safe in your Home?: Yes Lack of Transportation: No Lack of Food: Sometimes True Current Housing: I Have Housing Concerned About Future Housing: No Difficulty Paying Gas/Electric Bills: No Difficulty Paying for Meds: No Currently Unemployed: YES Education: Associate Degree Difficulty w/ Childcare or Family Care: No Spiritual care concerns: No Meds Home Medications and Allergies Home Medications ?Medication ?Instructions ?Recorded ?Confirmed ?Type carvedilol 6.25 mg tablet (Coreg) 6.25 mg PO Q12HR #60 tabs 10/03/22 01/23/25 Rx sacubitril 24 mg-valsartan 26 mg 1 tab PO Q12HR #60 tabs 10/03/22 01/23/25 Rx tablet (Entresto) spironolactone 25 mg tablet 25 mg PO QAM #30 tabs 10/03/22 01/23/25 Rx Allergies Allergy/AdvReac Type Severity Reaction Status Date / Time No Known Allergies Allergy Unknown Verified 01/23/25 12:26 Vital Signs Vital Signs - 24 hr 01/22/25 23:38 01/23/25 00:50 01/23/25 02:03 Temperature 97.8 F Pulse Rate 78 89 Respiratory Rate 20 15 Blood Pressure 178/99 H 176/98 H Pulse Oximetry 100 100 100 Oxygen Delivery Room Air Room Air 01/23/25 04:26 01/23/25 08:15 01/23/25 09:30 Temperature Pulse Rate 80 78 75 Respiratory Rate 14 16 16 Blood Pressure 177/101 H 173/103 H 179/114 H Pulse Oximetry 99 100 98 Oxygen Delivery 01/23/25 10:00 01/23/25 10:30 01/23/25 11:15 Temperature Pulse Rate 78 77 82 Respiratory Rate 16 20 20 Blood Pressure 187/114 H 185/110 H 176/104 H Pulse Oximetry 96 97 97 Oxygen Delivery 01/23/25 11:40 01/23/25 12:05 01/23/25 12:05 Temperature 97.7 F Pulse Rate 80 89 Respiratory Rate 16 19 19 Blood Pressure 154/82 H 151/56 H Pulse Oximetry 97 96 96 Oxygen Delivery Room Air Exam Narrative: General: alert and comfortable Eyes: EOMI, PERRLA ENNT External ears normal, Neck is supple, no masses, Respiratory systems: Clear to auscultation Cardiovascular S1, S2, normal rhythm, no murmur, rub, or gallop; no thrill or palpable murmurs on palpation. Gastrointestinal: soft, tender epigastrium , and non-distended abdomen with no masses; BS present Skin: no rash, lesions, ulcerations, subcutaneous nodules or induration Musculoskeletal: no abnormality and no tenderness, normal ROM Neurologic: Alert and oriented x3, non focal Mental Status Exam: normal affect H&P: Results Labs Labs: Short CBC 01/22/25 01/23/25 Range/Units 23:56 10:39 WBC 6.3 6.0 (4.5-10.0) K/mm3 Hgb 14.3 15.0 (14.0-18.0) g/dL Hct 41.8 L 44.0 (42.0-52.0) % Plt Count 264 238 (150-375) k/mm3 BMP 01/22/25 01/23/25 23:56 10:39 Sodium 136 L 135 L Potassium 4.3 4.1 Chloride 98 98 Carbon Dioxide 31 H 30 BUN 16 11 D Creatinine 0.97 0.89 Glucose 108 116 H Calcium 8.7 8.8 Cardiac Enzymes 01/22/25 01/23/25 01/23/25 Range/Units 23:56 02:54 06:12 Troponin I 0.030 0.034 0.026 D (0.000-0.034) ng/mL Liver Function 01/22/25 01/23/25 Range/Units 23:56 10:39 Total Bilirubin 0.6 2.2 H (0.2-1.3) mg/dL AST 189 H 968 H (17-59) U/L ALT 110 H 736 H (6-50) U/L Alkaline Phosphatase 134 H 281 H (38-126) U/L Albumin 3.9 4.0 (3.5-5.1) g/dL Assessment and Plan Assessment and plan (1) Acute cholecystitis: Code(s): K81.0 - Acute cholecystitis Status: Acute (2) Elevated LFTs: Code(s): R79.89 - Other specified abnormal findings of blood chemistry Status: Acute Plan Acute cholecystitis with elevated liver enzymes ? Cholangitis Presented with abd pain, CT abd showed Acute cholecystitis BIli 2.2, AST 968, ALT 736 and Alk Phos 281 Unable to do MRCP here due to loop recorder ON IVF, and Levaquin and Flagyl f/u cultures Gen surgery following Dilated cardiomyopathy titrate home meds with clinical course HTN with elevated blood pressure Titrate home meds with clinical course PRN hydralazine DVT prophylaxis on Sq Lovenox Full code patient noted he does not have any surrogate decision maker Hospitalist MIPS Advance Care Plan I have confirmed that the patient's Advanced Care Plan is present, code status is documented, or surrogate decision maker is listed in patient medical record.: Yes Medication Reconciliation I have utilized all available resources to obtain, update and review the patients current medications (includes all prescriptions, OTC, herbals, cannabis, and nutritional supplements).: Yes
--- NOTE | 2025-01-23 16:09 | PM.DS ---
DS: Admitting Diagnosis Discharge Date 01/23/25 Admitting Diagnosis abd pain DS: Discharge Diagnosis Discharge Diagnosis (1) Acute cholecystitis: Code(s): K81.0 - Acute cholecystitis Status: Acute (2) Elevated LFTs: Code(s): R79.89 - Other specified abnormal findings of blood chemistry Status: Acute DS: Summary Hospital Course Hospital Course: 54-year-old male past medical history of dilated cardiomyopathy and hypertension presented to ER complaining pain patient reported having abdominal pain the past 2 days described as sharp upper abdominal region, constant and 8/10 intensity associated with a vomiting shortness of breath. Negative for vomiting denies any diarrhea no dysuria symptoms and lightheadedness. ER evaluation eval noted BP 176/98, OR 89, RR 15 Labs notable for the total bilirubin 2.2, AST 968, ALT 736, alkaline phosphatase 2 8 1. Chest x-ray unremarkable. CT abdomen and pelvis and chest showed acute cholecystitis. Shows the IV fluid and antibiotics. General surgery was consulted and evaluated the patient discussed with GI who recommended MRCP, unfortunately patient has a loop recorder will unable to do MRCP in our facility due to loop recorder thus he was transferred to [facility] for high-level of care. Patient was on Levaquin and Flagyl and was placed ON NPO prior to being transferred HE was stable on transfer. Time Spent with Patient Time attestation: Total time spent providing and/or coordinating discharge services: DS: Data Data Completed and Pending Labs on day of discharge: Labs from last 24 hours 01/23/25 01/23/25 01/23/25 10:39 06:12 02:54 WBC 6.0 RBC 5.24 Hgb 15.0 Hct 44.0 MCV 84.0 MCH 28.6 MCHC 34.1 RDW 12.4 Plt Count 238 MPV 8.3 Immature Gran % (Auto) Neut % (Auto) Lymph % (Auto) [place] % (Auto) Eos % (Auto) Baso % (Auto) Lymph # (Auto) [place] # (Auto) Eos # (Auto) Baso # (Auto) Abs Immat Gran (auto) Absolute Neuts (auto) Absolute Nucleated RBC Nucleated RBC % PT INR APTT Sodium 135 L Potassium 4.1 Chloride 98 Carbon Dioxide 30 Anion Gap 7 BUN 11 D Creatinine 0.89 Estim Creat Clear Calc 83 Estimated GFR > 60 Glucose 116 H Calcium 8.8 Total Bilirubin 2.2 H AST 968 H ALT 736 H Alkaline Phosphatase 281 H Troponin I 0.026 D 0.034 Total Protein 7.0 Albumin 4.0 Lipase 01/22/25 23:56 WBC 6.3 RBC 5.01 Hgb 14.3 Hct 41.8 L MCV 83.4 MCH 28.5 MCHC 34.2 RDW 12.5 Plt Count 264 MPV 8.5 Immature Gran % (Auto) 0.6 H Neut % (Auto) 60.2 Lymph % (Auto) 26.1 [place] % (Auto) 9.2 H Eos % (Auto) 3.3 Baso % (Auto) 0.6 Lymph # (Auto) 1.64 [place] # (Auto) 0.6 Eos # (Auto) 0.2 Baso # (Auto) 0.0 Abs Immat Gran (auto) 0.04 H Absolute Neuts (auto) 3.8 Absolute Nucleated RBC 0.000 Nucleated RBC % 0.0 PT 13.0 INR 1.0 APTT 32.0 Sodium 136 L Potassium 4.3 Chloride 98 Carbon Dioxide 31 H Anion Gap 7 BUN 16 Creatinine 0.97 Estim Creat Clear Calc 77 Estimated GFR > 60 Glucose 108 Calcium 8.7 Total Bilirubin 0.6 AST 189 H ALT 110 H Alkaline Phosphatase 134 H Troponin I 0.030 Total Protein 7.0 Albumin 3.9 Lipase 91 Discharge Plan Discharge Attending physician on discharge: Aarti Jacobson Consulting providers: Roseline Amador Discharging Clinician: Aarti Jacobson Patient Language: Urdu Discharge Medications: No Action carvedilol [Coreg] 6.25 mg Tablet 6.25 mg PO Q12HR Qty: 60 0RF spironolactone 25 mg Tablet 25 mg PO QAM Qty: 30 0RF Entresto 24-26 mg Tablet 1 tab PO Q12HR Qty: 60 0RF Date of admission: 01/23/25 06:39 Primary Care Provider: PHYSICIAN,ASSISTANT INFANT TEACHER Admitting Provider: Yenni Alonso Attending physician on admission: Yenni Alonso Condition: Stable
--- NOTE | 2025-01-23 16:14 | PM.TDS ---
Transfer Discharge Sum: Prov Provider Date of admission: 01/23/25 06:39 Primary care physician: SCREEN REPAIRER [facility]ICIAN Admitting clinician: Yenni Alonso DO Consults: 01/23/25 Consult to Physician Routine Comment: Consulting Provider: Roseline Amador Reason for consultation: Acute cholecystitis Has provider been notified: Yes DS: Admitting Diagnosis Discharge Date 01/23/25 Admitting Diagnosis abd pain DS: Discharge Diagnosis Discharge Diagnosis (1) Elevated LFTs: Code(s): R79.89 - Other specified abnormal findings of blood chemistry Status: Acute (2) Acute cholecystitis: Code(s): K81.0 - Acute cholecystitis Status: Acute Transfer Discharge Sum: Med Medications Active and Home Medications: Home Medications carvedilol 6.25 mg tablet (Coreg) 6.25 mg PO Q12HR #60 tabs 10/03/22 [Rx Confirmed 01/23/25] sacubitril 24 mg-valsartan 26 mg tablet (Entresto) 1 tab PO Q12HR #60 tabs 10/03/22 [Rx Confirmed 01/23/25] spironolactone 25 mg tablet 25 mg PO QAM #30 tabs 10/03/22 [Rx Confirmed 01/23/25] Active Medications Hydromorphone HCl (Hydromorphone Hcl Inj (*Crx) 1 Mg/Ml Syr) 0.5 mg IV PUSH Q4H PRN PRN Reason: Pain Last Admin: 01/23/25 15:37 Dose: 0.5 mg Piperacillin/Tazobactam/Dextrose (Zosyn 3.375 Gm/Ns 50 Ml) 3.375 gm in 50 mls @ 100 mls/hr IVPB Q6HR SAM Last Infusion: 01/23/25 11:39 Dose: Infused Sodium Chloride (Normal Saline Iv) 1,000 mls @ 50 mls/hr IV CONT .Q20H SAM Last Admin: 01/23/25 12:38 Dose: 50 mls/hr Ondansetron HCl (Ondansetron Inj 4 Mg/2 Ml Vial) 4 mg IV PUSH Q4H PRN PRN Reason: Nausea And Vomiting Last Admin: 01/23/25 15:37 Dose: 4 mg Transfer Discharge Sum: Hosp Hospital Course Hospital course: Jose Juan Rodriguez is a 54-year-old male past medical history of dilated cardiomyopathy and hypertension presented to ER complaining pain patient reported having abdominal pain the past 2 days described as sharp upper abdominal region, constant and 8/10 intensity associated with a vomiting shortness of breath. Negative for vomiting denies any diarrhea no dysuria symptoms and lightheadedness. ER evaluation eval noted BP 176/98, MN 89, RR 15 Labs notable for the total bilirubin 2.2, AST 968, ALT 736, alkaline phosphatase 2 8 1. Chest x-ray unremarkable. CT abdomen and pelvis and chest showed acute cholecystitis. Shows the IV fluid and antibiotics. General surgery was consulted and evaluated the patient discussed with GI who recommended MRCP, unfortunately patient has a loop recorder will unable to do MRCP in our facility due to loop recorder thus he was transferred to [facility] for high-level of care. Patient was on Levaquin and Flagyl and was placed ON NPO prior to being transferred HE was stable on transfer. Time Spent with Patient Time attestation: Total time spent providing and/or coordinating transfer services: DS: Data Data Completed and Pending Labs on day of discharge: Labs from last 24 hours 01/23/25 01/23/25 01/23/25 10:39 06:12 02:54 WBC 6.0 RBC 5.24 Hgb 15.0 Hct 44.0 MCV 84.0 MCH 28.6 MCHC 34.1 RDW 12.4 Plt Count 238 MPV 8.3 Immature Gran % (Auto) Neut % (Auto) Lymph % (Auto) [place] % (Auto) Eos % (Auto) Baso % (Auto) Lymph # (Auto) [place] # (Auto) Eos # (Auto) Baso # (Auto) Abs Immat Gran (auto) Absolute Neuts (auto) Absolute Nucleated RBC Nucleated RBC % PT INR APTT Sodium 135 L Potassium 4.1 Chloride 98 Carbon Dioxide 30 Anion Gap 7 BUN 11 D Creatinine 0.89 Estim Creat Clear Calc 83 Estimated GFR > 60 Glucose 116 H Calcium 8.8 Total Bilirubin 2.2 H AST 968 H ALT 736 H Alkaline Phosphatase 281 H Troponin I 0.026 D 0.034 Total Protein 7.0 Albumin 4.0 Lipase 01/22/25 23:56 WBC 6.3 RBC 5.01 Hgb 14.3 Hct 41.8 L MCV 83.4 MCH 28.5 MCHC 34.2 RDW 12.5 Plt Count 264 MPV 8.5 Immature Gran % (Auto) 0.6 H Neut % (Auto) 60.2 Lymph % (Auto) 26.1 [place] % (Auto) 9.2 H Eos % (Auto) 3.3 Baso % (Auto) 0.6 Lymph # (Auto) 1.64 [place] # (Auto) 0.6 Eos # (Auto) 0.2 Baso # (Auto) 0.0 Abs Immat Gran (auto) 0.04 H Absolute Neuts (auto) 3.8 Absolute Nucleated RBC 0.000 Nucleated RBC % 0.0 PT 13.0 INR 1.0 APTT 32.0 Sodium 136 L Potassium 4.3 Chloride 98 Carbon Dioxide 31 H Anion Gap 7 BUN 16 Creatinine 0.97 Estim Creat Clear Calc 77 Estimated GFR > 60 Glucose 108 Calcium 8.7 Total Bilirubin 0.6 AST 189 H ALT 110 H Alkaline Phosphatase 134 H Troponin I 0.030 Total Protein 7.0 Albumin 3.9 Lipase 91
== END 2025-01-23 16:40 | disposition short-term general hospital (02) ==
LOC: ANHED 01-23 06:15 → ANH2MED 01-23 17:41 → ANH3MEDSUR 01-25 12:08
PROVIDERS: Nurse Practitioner Family; Student in an Organized Health Care Education/Training Program; Admitting Provider Internal Medicine; Emergency Provider Physician Assistant; Visit Provider Internal Medicine
DX: K81.0 Acute cholecystitis (principal); I42.0 Dilated cardiomyopathy; I11.0 Hypertensive heart disease with heart failure; I50.42 Chronic combined systolic (congestive) and diastolic (congestive) heart failure; F17.210 Nicotine dependence, cigarettes, uncomplicated; Z95.810 Presence of automatic (implantable) cardiac defibrillator; Z86.16 Personal history of COVID-19
CPT/HCPCS: 36415; 71045; 71275; 74174; 80053; 83690; 84484; 85025; 85027; 85610; 85730; 87040; 93005; 96361; 96365; 96375; 96376; 99285; A9270; J0360; J1171; J2270; J2405; J2470; J2543; J7030; J7120; Q9967